=== PATIENT | male | born 1940 | race Caucasian/White ===

== ENCOUNTER 2023-07-07 18:09 | Emergency (ER) | payer OTHER, SELFPAY ==
[2023-07-07 18:27] VITALS: BP 145/87; PULSE 81; RESP 14; TEMP 36.6; O2SAT 97; BMI 27.3
--- NOTE | 2023-07-07 18:43 | W.ED.EXTPRO ---
HPI - Extremity Problem General: Chief complaint: Extremity Problem,Nontraumatic Stated complaint: Va sent for blood clot R leg Time Seen by Provider: 07/07/23 18:33 History of Present Illness: 82-year-old male presents to the emergency department after being seen by the [facility]. Patient states she lives in [place] and has recently traveled from the [facility] to [place] to visit his son. He states he initially started having pain and swelling to the back of his knee and it has now extended down to his calf. He states the pain is causing him difficulty in walking and is currently a constant dull aching 10 out of 10 pain. He states that attempts at ambulating makes the pain worse. he denies numbness or tingling to the extremity. He states that he is a diabetic-has an insulin pump that he uses. He denies chest pain or shortness of breath. He denies known injury or trauma. Review of Systems General: Reports: 10 or more systems reviewed and unremarkable except in HPI and below Musc: Reports: extremity pain and extremity swelling Physical Exam Narrative: EXAM NARRATIVE: Constitutional: the patient appears well nourished and with normal development. Vital signs reviewed as documented. HENMT: Normocephalic, atraumatic. External ears normal appearance without drainage. Nose without drainage, normal appearance. Mucus membranes moist. Neck is supple, No jugular venous distension, trachea is midline, no appreciable carotid bruits. No lymphadenopathy. No meningeal signs. Flexion, extension and lateral rotation is without pain. Eyes: Pupils are equal, round, reactive to light and accommodation. No scleral icterus. Extra-ocular movement are intact. Thorax is symmetrical and with equal rise and fall with respirations. Resp: Lungs are clear to auscultation. No wheezes, rales, crackles or ronchi at present. Cardio: Regular rate and rhythm. Positive S1, S2. No appreciable murmurs, rubs or gallops. GI: Abdominal exam reveals normal bowel sounds to all quadrants. No organomegaly. No obvious palpable masses noted. No hepatomegally appreciated. Soft, non-tender to palpation. Extremity: Right lower leg does appear to be slightly more swollen than the left in comparison. He is tender to palpation to the right popliteal space. Both femoral and pedal pulses are 2+ and equal bilaterally. Moves all extremities well, sensation in all extremities. Neuro: Alert and oriented x4, person, place, time and situation. Cranial nerves II through XII are grossly intact, there is no focal neurological deficits that I can appreciate at present. Sensation intact to all extremities. 2-point discrimination intact. Light touch intact to all extremities. Motor strength in the upper and lower extremities are equal and bilateral 5/5. Psych: Cooperative, calm, normal thought process, appropriate judgment. Skin: No lesions, rashes. No gross abnormalities noted. Back: Symmetrical, no obvious deformity, No CVA tenderness Course Vital Signs: Vital signs: Vital Signs Temperature 97.8 F 07/07/23 18:27 Pulse Rate 71 07/07/23 21:05 Respiratory Rate 18 07/07/23 21:05 Blood Pressure 115/91 07/07/23 21:05 Pulse Oximetry 96 07/07/23 21:05 Oxygen Delivery Me thod Room Air 07/07/23 18:27 MDM - Extremity (Nontraumatic) Medical Decision Making Physical exam completed and documented I will obtain a CBC CMP and a D-dimer as well as obtain an ultrasound of the right lower extremity to evaluate for differential diagnosis of cellulitis, deep vein thrombosis, musculoskeletal strain. Patient has no previous medical records here at this hospital for evaluation. Ultrasound of the right lower extremity was negative for DVT, on physical exam the patient did have a Kenney's cyst to the right popliteal space. I did educate the patient regarding supportive care and preventative measures to decrease his risk of DVT and edema while he was driving Lab Data I reviewed the patient's lab results. 07/07/23 18:43 07/07/23 18:43 Radiology Impressions Venous Duplex 07/07/23 18:46 IMPRESSION: No sonographic evidence of deep vein thrombosis. Laboratory Results WBC 6.85 10^3/uL (3.29-11.43) 07/07/23 18:43 RBC 4.86 10^6/uL (3.85-5.65) 07/07/23 18:43 Hgb 13.50 g/dL (11.27-16.99) 07/07/23 18:43 Hct 41.2 % (37-53) 07/07/23 18:43 MCV 84.8 fl (82-101) 07/07/23 18:43 MCH 27.8 pg (27-33) 07/07/23 18:43 MCHC 32.8 g/dL (30-55) 07/07/23 18:43 RDW 15.6 % (12.1-15.1) H 07/07/23 18:43 Plt Count 340 10^3/cmm (157-399) 07/07/23 18:43 MPV 10.5 fL (7.4-10.4) H 07/07/23 18:43 Neut % (Auto) 40.4 % 07/07/23 18:43 Lymph % (Auto) 43.4 % 07/07/23 18:43 Coffey % (Auto) 13.7 % 07/07/23 18:43 Eos % (Auto) 1.8 % 07/07/23 18:43 Baso % (Auto) 0.6 % 07/07/23 18:43 Neut # (Auto) 2.77 10^3/uL (1.8-7.7) 07/07/23 18:43 Lymph # (Auto) 3.0 10^3/uL (0.8-4.8) 07/07/23 18:43 Coffey # (Auto) 0.9 10^3/uL (0.2-0.9) 07/07/23 18:43 Eos # (Auto) 0.1 10^3/uL (0.0-0.8) 07/07/23 18:43 Baso # (Auto) 0.0 10^3/uL (0.0-0.1) 07/07/23 18:43 Nucleated RBC % (auto) 0 % 07/07/23 18:43 Nucleated RBCs # 0.0 /100WBC 07/07/23 18:43 D-Dimer 0.94 ug/mLFEU (0-0.59) H 07/07/23 18:43 Sodium 138 mmol/L (136-145) 07/07/23 18:43 Potassium 3.7 mmol/L (3.5-5.1) 07/07/23 18:43 Chloride 102 mmol/L (98-107) 07/07/23 18:43 Carbon Dioxide 25 mmol/L (22-29) 07/07/23 18:43 Anion Gap 14.7 (5-19) 07/07/23 18:43 BUN 23 mg/dL (8-23) 07/07/23 18:43 Creatinine 1.2 mg/dL (0.7-1.2) 07/07/23 18:43 GFR Calculation Not Reportable 07/07/23 18:43 Glucose 237 mg/dL (65-115) H 07/07/23 18:43 Calculated Osmolality 297 mOsm/kg (285-295) H 07/07/23 18:43 Calcium 9.3 mg/dL (8.5-10.5) 07/07/23 18:43 Total Bilirubin 0.9 mg/dL (0.15-1.2) 07/07/23 18:43 AST 18 U/L (0-40) 07/07/23 18:43 ALT 16 U/L (0-41) 07/07/23 18:43 Alkaline Phosphatase 88 U/L (40-130) 07/07/23 18:43 Total Protein 7.5 g/dL (6.6-8.7) 07/07/23 18:43 Albumin 4.1 g/dL (3.5-5.2) 07/07/23 18:43 Globulin 3.4 g/dL (1.3-4.6) 07/07/23 18:43 All radiology interpretation(s) finalized by discharge Discharge Plan Discharge Patient Disposition: Home Clinical Impression: Hypertension, uncontrolled, Lower extremity pain, right Kenney's cyst of knee Qualifiers: Laterality: right Qualified Code(s): M71.21 - Synovial cyst of popliteal space [Kenney], right knee Condition: Stable Prescriptions: New hydrocodone-acetaminophen 5-325 mg tablet 1 tab PO Q8H PRN (Reason: pain) Qty: 14 0RF naproxen 500 mg tablet 500 mg PO Q12H PRN (Reason: pain) Qty: 20 0RF Discharge Orders: Discharge ED (Routine); Ordered 07/07/23 Ordered By: Gaurav Gomez Discharge Diet: Usual diet Discharge Activity: Resume usual activity Patient Instructions: Opioid Safety, Pain Management Activity Restrictions/Additional Instructions: Activity Restrictions/Additional Instructions: Thank you for choosing [facility] for your healthcare needs today. Please realize that you were seen in the Emergency Department and that we are providing you with an emergency medical screening exam and this may not be a complete and all inclusive of all the testing and or medical work-up that you may need to determine your ailment or severity of your illness. It is very important that you follow-up as instructed with your Primary care provider or Specialist for additional evaluation and to discuss your medical treatment plan. You may return to the Emergency Department should you have concerns or if your condition changes or worsens in any way. Coding Level of Care Code ED [employer] for Narendra Morocho
--- NOTE | 2023-07-07 18:46 | USR_ITS ---
PROCEDURE INFORMATION: Exam: US Duplex Right Lower Extremity Veins, Limited Exam date and time: 07/07/2023 6:54 PM Age: 82 years old Clinical indication: Pain; Leg, lower; Right; Additional info: Pain/swelling, R/O dvt TECHNIQUE: Imaging protocol: Real-time duplex ultrasound of the right extremity with 2-D taylor scale, color Doppler flow and spectral waveform analysis including responses to compression and other maneuvers (when performed) with image documentation. Limited exam was focused on the right lower extremity veins. COMPARISON: No relevant prior studies available. FINDINGS: Right deep veins: Unremarkable. The common femoral, femoral, proximal profunda femoral, popliteal, posterior tibial and peroneal veins are patent without thrombus. Normal Doppler waveforms. Normal compressibility and/or augmentation response. Superficial veins: Greater saphenous vein at the saphenofemoral junction is patent without thrombus. Soft tissues: Unremarkable. US/[place] [id number] IMPRESSION: No sonographic evidence of deep vein thrombosis.
[2023-07-07 18:52] LABS: Basophils % 0.6 %; Eosinophils # 0.1 10^3/uL (0.0-0.8); Eosinophils % 1.8 %; Hematocrit 41.2 % (37-53); Lymphocytes % 43.4 %; Mean Corpuscular HGB Conc 32.8 g/dL (30-55); Mean Corpuscular Hemoglobin 27.8 pg (27-33); Mean Corpuscular Volume 84.8 fl (82-101); Mean Platelet Volume 10.5 fL (7.4-10.4); Monocytes # 0.9 10^3/uL (0.2-0.9); Monocytes % 13.7 %; Neutrophils # 2.77 10^3/uL (1.8-7.7); Neutrophils % 40.4 %; Nucleated Red Blood Cells % 0 %; Platelet Count 340 10^3/cmm (157-399); Red Blood Count 4.86 10^6/uL (3.85-5.65); Red Cell Distribution Width 15.6 % (12.1-15.1); White Blood Count 6.85 10^3/uL (3.29-11.43)
[2023-07-07 19:03] VITALS: BP 175/92; PULSE 78; O2SAT 97
[2023-07-07 19:08] LABS: Alanine Aminotransferase 16 U/L (0-41); Albumin Level 4.1 g/dL (3.5-5.2); Alkaline Phosphatase 88 U/L (40-130); Anion Gap 14.7 (5-19); Aspartate Amino Transferase 18 U/L (0-40); Blood Urea Nitrogen 23 mg/dL (8-23); Calcium 9.3 mg/dL (8.5-10.5); Carbon Dioxide 25 mmol/L (22-29); Chloride 102 mmol/L (98-107); Globulin 3.4 g/dL (1.3-4.6); Glucose 237 mg/dL (65-115); Osmolality Calculated 297 mOsm/kg (285-295); Potassium 3.7 mmol/L (3.5-5.1); Sodium 138 mmol/L (136-145); Total Bilirubin 0.9 mg/dL (0.15-1.2); Total Protein 7.5 g/dL (6.6-8.7)
[2023-07-07 19:18] LABS: Slide Review Slide Review Perform
[2023-07-07 19:36] LABS: D Dimer 0.94 ug/mLFEU (0-0.59)
[2023-07-07] MEDS: HYDROcodone-acetaminophen 10-325 mg Tablet 1 TAB PO (20:56)
[2023-07-07] MEDS: dexamethasone 10 mg/mL INJ IM (20:58)
[2023-07-07 21:05] VITALS: BP 115/91; PULSE 71; RESP 18; O2SAT 96
== END 2023-07-07 21:18 | disposition home or self-care (01) ==
PROVIDERS: Emergency Provider Internal Medicine
DX: M71.21 Synovial cyst of popliteal space [Baker], right knee (principal); I10 Essential (primary) hypertension
CPT/HCPCS: 36415; 80053; 85025; 85378; 93971; 96372; 99284; J1100

== ENCOUNTER 2023-10-05 14:23 | Emergency (ER) | payer OTHER, MEDICARE, SELFPAY ==
[2023-10-05 14:56] VITALS: BP 168/93; PULSE 96; RESP 16; TEMP 36.5; O2SAT 97; BMI 26.1
--- NOTE | 2023-10-05 15:18 | ED_ITS ---
Documented by User: VERO Edwards 10/05/23 16:15 HPI - Fall 2 General: Chief Complaint: Extremity Injury, Upper Stated Complaint: Left arm injury Time Seen by Provider: 10/05/23 15:13 Source: patient Mode of arrival: wheelchair Limitations: no limitations History of Present Illness: Patient is a elliott 83-year-old male presents to ED today following a fall. Patient states he was walking on hardwood in socks when he accidentally slipped and fell. Patient states he did strike his head/face. He denies LOC. He is not on anticoagulation. He states he felt something crunch in his left shoulder and this is his main complaint upon presentation to the ED. He does not complain of neck or back pain. He states his legs do feel weak with ambulation but states this has been present for a while stating I am 83 and it comes with the territory . complaint: fall Onset (ago): hour(s) Fall from: standing Fall witnessed: no Place fall occurred: home Loss of consciousness: None Prolonged down time: no Symptoms prior to fall: none Context: tripped/slipped Location of injury: head and face Location of injury - extremities: Left: shoulder Severity: severe Associated symptoms-after fall: Denies abdominal pain, chest pain, headache(s), hematuria, lightheadedness or neck pain Review of Systems 2 Eyes: Denies: change in vision, blurry vision, photophobia, eye discharge, floaters or seeing flashes ENMT: Denies: throat pain, odynophagia, ear or mastoid pain, ear discharge, nasal discharge, epistaxis or sinus pain Card: Denies: chest pain, palpitations, lightheadedness, syncope or pre- syncope Resp: Denies: dyspnea or pain on inspiration GI: Denies: abdominal pain : Denies: flank pain or hematuria Musc: Reports: joint pain (L shoulder); Denies: neck pain, back pain or extremity pain Neuro: Denies: headache(s), numbness in extremities, weakness in extremities, sensory changes or dizziness Physical Exam 2 Const: COMMON NORMALS: no acute distress, average body habitus, patient oriented x3, no limitations, healthy appearing, alert and well nourished G ENERAL APPEARANCE: cooperative ORIENTATION/CONSCIOUSNESS: Yes awake, Yes oriented to person, Yes oriented to place and Yes oriented to time HENMT: COMMON NORMALS: normocephalic, atraumatic and TM's normal bilaterally HEAD & SCALP: normal to inspection, normocephalic and atraumatic; no Dawkins's sign, no hematoma and no raccoon eyes FACE & SINUS: abrasion FACE & SINUS IMAGES: 1. minor facial abrasions TYMPANIC MEMBRANE: TM's normal bilaterally MOUTH: other (no intraoral injuries noted) Eye: COMMON NORMALS: Equal, round and reactive pupils present and EOMs intact bilaterally GENERAL EYE: appearance normal, both eyes and all related structures and normal light reflex PUPIL: Yes Equal, round and reactive pupils present DIRECT OPHTHALMOSCOPY: Yes normal light reflex Neck/C-Spine: COMMON NORMALS: full ROM GENERAL: Yes normal visual inspection CERVICAL SPINE: Yes cervical ROM normal, No pain with cervical ROM, No Cervical spine tenderness, No step off deformity and No Paracervical muscle tenderness Chest: COMMONS NORMALS: normal inspection of the chest and normal palpation of entire chest wall Resp: COMMON NORMALS: normal respiratory effort and clear to auscultation bilaterally AUSCULTATION: clear to auscultation bilaterally Cardio: COMMON NORMALS: regular rate and regular rhythm RATE: regular rate RHYTHM: regular rhythm GI: COMMON NORMALS: Normal to inspection, nondistended, normoactive bowel sounds present, Soft to palpation, non-tender, No hepatosplenomegaly present and no masses INSPECTION: Yes normal to inspection and No abdominal wall ecchymosis AUSCULTATION: Yes normoactive bowel sounds PALPATION: Yes Soft to palpation and Yes No hepatosplenomegaly present Back/Pelvis: COMMON NORMALS: thoracic and lumbar spine normal to inspection, no thoracic nor lumbar tenderness and thoraco-lumbar ROM normal Extremity: GENERAL: Yes normal exam except as noted LEFT UPPER EXTREMITY: Y es shoulder joint (severe tenderness to palpation; no dislocation present) Left shoulder joint: Yes ROM (full limitation due to pain) and Yes neurovascular exam (normal) Neuro: JUAN COMA SCALE: document GCS findings Juan coma scale eye opening: Spontaneous Juan coma scale verbal response: Orientated Melville coma scale motor response: Obey commands Juan coma scale total score: 15 COMMON NORMALS: patient oriented x3, CN's II-XII intact bilaterally, moves all extremities, no focal motor deficits, no sensory deficits noted and gait normal SENSORIUM/ORIENTATION: Yes alert, Yes oriented to person, Yes oriented to place and Yes oriented to time SPEECH: speech normal GAIT: Yes Normal gait present Skin: COMMON NORMALS: no rashes or lesions noted GENERAL SKIN EXAM: no rashes or lesions noted TRAUMA: abrasion Course 2 Vital Signs: Vital signs: Vital Signs Temperature 97.7 F 10/05/23 14:56 Pulse Rate 96 10/05/23 14:56 Respiratory Rate 21 H 10/05/23 17:11 Blood Pressure 168/93 10/05/23 14:56 Pulse Oximetry 97 10/05/23 17:11 Oxygen Delivery Me thod Room Air 10/05/23 14:56 MDM - Fall Lab Data Radiology Impressions Cervical Spine CT 10/05/23 15:54 IMPRESSION: There is no evidence for fracture or facet dislocation. Head CT 10/05/23 15:54 IMPRESSION: No acute intracranial findings. Shoulder X-Ray 10/05/23 15:54 IMPRESSION: Acute comminuted mildly displaced fracture of the surgical neck of the humerus extending into the greater tuberosity Discharge Plan Discharge Patient Disposition: Home Clinical Impression: Proximal humeral fracture Condition: Stable Prescriptions: New hydrocodone-acetaminophen 7.5-325 mg tablet 1 tab PO Q8H PRN (Reason: pain) Qty: 20 0RF Discontinued hydrocodone-acetaminophen 5-325 mg tablet 1 tab PO Q8H PRN (Reason: pain) Qty: 14 0RF No Action naproxen 500 mg tablet 500 mg PO Q12H PRN (Reason: pain) Qty: 20 0RF Discharge Orders: Discharge ED (Routine); Ordered 10/05/23 Ordered By: Gerard Gonsalez Discharge Diet: Usual diet Discharge Activity: Limit activity as instructed Patient Instructions: Arm Fracture in Adults (ED), Opioid Safety Activity Restrictions/Additional Instructions: Use sling as instructed. Follow-up with orthopedics. Pain medications. Avoid any overhead movements with that left arm and please return if you develop any concerning symptoms such as numbness, coolness, or significant increase of pain of your left arm. Sign Out Sign Out Data: Patient Sign Out occurred on 10/05/23 at 17:30. Patient's care was discussed, and care was transferred from VERO Edwards to VERO Herrera. Coding Level of Care Code ED Mechanical [employer] Techn[employer] for [employer]g [employer] Documented by User: VERO Herrera 10/05/23 17:42 HPI - Fall 2 General: Chief Complaint: Extremity Injury, Upper Stated Complaint: Left arm injury Time Seen by Provider: 10/05/23 15:13 Physical Exam 2 HENMT: FACE & SINUS IMAGES: 1. minor facial abrasions Neuro: JUAN COMA SCALE: document GCS findings Juan coma scale total score: 15 Course 2 Vital Signs: Vital signs: Vital Signs Temperature 97.7 F 10/05/23 14:56 Pulse Rate 96 10/05/23 14:56 Respiratory Rate 21 H 10/05/23 17:11 Blood Pressure 168/93 10/05/23 14:56 Pulse Oximetry 97 10/05/23 17:11 Oxygen Delivery Pr thod Room Air 10/05/23 14:56 MDM - Fall Medical Decision Making Care of patient transferred to vt by bijal PHAM. Patient presented to the emergency department after a fall at home. Patient was walking in his socks when he fell on hardwood floor, striking his head and stating that there was a loss of consciousness. However his primary complaint at this time is some left shoulder pain. Patient is anticoagulated. His shoulder x-ray did reveal an acute fracture of the left surgical neck of the humerus. He is given shot of morphine as well is a shot of Zofran. While his pain was initially improving, he states it was coming back so another 4 of morphine is given. Due to the head trauma, head CT and cervical spine CT obtained that did not reveal any acute findings. Patient will be placed in a sling and referred to orthopedics for further evaluation. He does live at home with his and a 16-year-old child, and states that they can watch over him. He denies needing wheelchair accessibility at this time, as after being placed in a sling he states that he is feeling more comfortable. Hydrocodone sent to his pharmacy for pain control, and he is instructed to limit use of that left arm and return for any signs of distal neurovascular compromise. His examination did not reveal any concerning findings of this, no wrist drop was noted. Strict return precautions given otherwise and he will follow-up with orthopedics. Lab Data Radiology Impressions Cervical Spine CT 10/05/23 15:54 IMPRESSION: There is no evidence for fracture or facet dislocation. Head CT 10/05/23 15:54 IMPRESSION: No acute intracranial findings. Shoulder X-Ray 10/05/23 15:54 IMPRESSION: Acute comminuted mildly displaced fracture of the surgical neck of the humerus extending into the greater tuberosity All radiology interpretation(s) finalized by discharge Discharge Plan Discharge Patient Disposition: Home Clinical Impression: Proximal humeral fracture Condition: Stable Prescriptions: New hydrocodone-acetaminophen 7.5-325 mg tablet 1 tab PO Q8H PRN (Reason: pain) Qty: 20 0RF Discontinued hydrocodone-acetaminophen 5-325 mg tablet 1 tab PO Q8H PRN (Reason: pain) Qty: 14 0RF No Action naproxen 500 mg tablet 500 mg PO Q12H PRN (Reason: pain) Qty: 20 0RF Discharge Orders: Discharge ED (Routine); Ordered 10/05/23 Ordered By: Gerard Gonsalez Discharge Diet: Usual diet Discharge Activity: Limit activity as instructed Patient Instructions: Arm Fracture in Adults (ED), Opioid Safety Activity Restrictions/Additional Instructions: Use sling as instructed. Follow-up with orthopedics. Pain medications. Avoid any overhead movements with that left arm and please return if you develop any concerning symptoms such as numbness, coolness, or significant increase of pain of your left arm. Sign Out Sign Out Data: Patient Sign Out occurred on 10/05/23 at 17:30. Patient's care was discussed, and care was transferred from VERO Edwards to VERO Herrera. Coding Level of Care Code ED Mechanical [employer] Techn[employer] for Narendra Morocho
--- NOTE | 2023-10-05 15:54 | CTR_ITS ---
PROCEDURE INFORMATION: Exam: CT Cervical Spine Without Contrast Exam date and time: 10/05/2023 4:33 PM Age: 83 years old Clinical indication: Injury or trauma; Fall; Prior surgery; Surgery date: 6+ months; Surgery type: Describes surgery as putting a clip in there -several years ago; Additional info: Fall/trauma TECHNIQUE: Imaging protocol: Computed tomography of the cervical spine without contrast. Radiation optimization: All CT scans at this facility use at least one of these dose optimization techniques: automated exposure control; mA and/or kV adjustment per patient size (includes targeted exams where dose is matched to clinical indication); or iterative reconstruction. COMPARISON: CT head wo con* [id number] 10/05/2023 4:33 PM RADIATION DOSE METRICS: Total DLP (mGy-cm): 298 FINDINGS: Bones/joints: No acute fracture. Normal alignment. There is fusion at C5/6 and C6/7. Degenerative change is identified in the spine. Lungs: Lung apices are normal. Soft tissues: Unremarkable. CT/CT cervical spin wo con* [id number] IMPRESSION: There is no evidence for fracture or facet dislocation.
--- NOTE | 2023-10-05 15:54 | CTR_ITS ---
PROCEDURE INFORMATION: Exam: CT Head Without Contrast Exam date and time: 10/05/2023 4:33 PM Age: 83 years old Clinical indication: Injury or trauma; Fall; Blunt trauma (contusions or hematomas) TECHNIQUE: Imaging protocol: Computed tomography of the head without contrast. Radiation optimization: All CT scans at this facility use at least one of these dose optimization techniques: automated exposure control; mA and/or kV adjustment per patient size (includes targeted exams where dose is matched to clinical indication); or iterative reconstruction. COMPARISON: CT cervical spin wo con* [id number] 10/05/2023 4:33 PM RADIATION DOSE METRICS: Total DLP (mGy-cm): 1144 FINDINGS: Brain: No intracranial hemorrhage. There is global parenchymal volume loss. Periventricular white matter hypoattenuation is nonspecific but most likely due to small vessel disease. No evidence of acute territorial infarct or cerebral edema. No mass effect or midline shift. Cerebral ventricles: Prominent ventricles likely secondary to volume loss. Paranasal sinuses: Visualized sinuses are unremarkable. No fluid levels. Mastoid air cells: Visualized mastoid air cells are well aerated. Bones: Unremarkable. No acute fracture. Soft tissues: Left frontal and periorbital scalp hematoma. CT/CT head wo con* [id number] IMPRESSION: No acute intracranial findings.
--- NOTE | 2023-10-05 15:54 | XRR_ITS ---
PROCEDURE INFORMATION: Exam: XR Left Shoulder Exam date and time: 10/05/2023 3:59 PM Age: 83 years old Clinical indication: Injury or trauma; Fall; Blunt trauma (contusions or hematomas); Shoulder; Left; Additional info: Fall/trauma TECHNIQUE: Imaging protocol: Radiologic exam of the left shoulder. Views: 2 or more views. COMPARISON: No relevant prior studies available. FINDINGS: Bones/joints: There is a comminuted mildly displaced fracture involving the surgical neck of the humerus extending into the greater tuberosity. The humeral head remains aligned with the glenoid. There are [id number] degenerative changes of the acromioclavicular joint. There is a remote healed fracture deformity of the left clavicle. Soft tissues: Normal. XR/XR shoulder LT min 2V* [id number] IMPRESSION: Acute comminuted mildly displaced fracture of the surgical neck of the humerus extending into the greater tuberosity
[2023-10-05 16:15] VITALS: RESP 17; O2SAT 98
[2023-10-05] MEDS: morphine 4 mg/mL SDV 1 mL IM ×2 (16:15→17:11)
[2023-10-05] MEDS: ondansetron 2 mg/ML SDV 2 mL 4 MG IM (16:20)
[2023-10-05 17:11] VITALS: RESP 21; O2SAT 97
--- NOTE | 2023-10-05 17:19 | DCPLANNER ---
messaged ortho for er f/u
== END 2023-10-05 17:56 | disposition home or self-care (01) ==
PROVIDERS: Emergency Provider Physician Assistant
DX: S42.212A Unspecified displaced fracture of surgical neck of left humerus, initial encounter for closed fracture (principal); S00.212A Abrasion of left eyelid and periocular area, initial encounter; W01.0XXA Fall on same level from slipping, tripping and stumbling without subsequent striking against object, initial encounter
CPT/HCPCS: 70450; 72125; 73030; 96372; 99284; J2270; J2405

== ENCOUNTER → 2023-10-07 11:17 | Outpatient (BNVA) | payer OTHER, MEDICARE, SELFPAY | PROVIDERS: Referring Provider Physician Assistant; Visit Provider Specialist | DX: S42.202A Unspecified fracture of upper end of left humerus, initial encounter for closed fracture (principal); W18.30XA Fall on same level, unspecified, initial encounter | CPT/HCPCS: 23600; 73030; 99204 ==

== ENCOUNTER 2023-10-12 07:47 | Outpatient (CLI) | payer OTHER, SELFPAY ==
--- NOTE | 2023-10-12 08:00 | CT_ITS ---
WS: [id number] CT LEFT SHOULDER, NONCONTRAST. HISTORY: fracture Technique: All CT scans at [facility] use at least one of these dose optimization techniques: automated exposure control; mA and/or kV adjustment per patient size (includes targeted exams where dose is matched to clinical indication); or iterative reconstruction. DLP: 401.19 mGy.cm COMPARISON: LEFT shoulder radiographs 10/07/2023 Markedly comminuted fracture involving the LEFT proximal humerus. Multiple fracture lines of the mila ral head and proximal humerus. Involvement of the anatomic and surgical neck's. There is impaction al hao the fracture line with anterior displacement and impaction of the humeral head. Anterior displace ment by 13 mm along with approximately 22 mm of impaction along the dominant fracture line. There is an additional fracture involving the posterior glenoid. This is the site of impaction. Poste rior glenoid fracture displaced by 13 mm. Fracture fragments are displaced from the humeral head. The re is a separation of the medial fracture fragment by 13 mm. Mild inferior subluxation humeral head. There is soft tissue edema and probable joint effusion from the recent trauma. Mild degenerative changes at the AC joint. Cortical thickening in the central clavicle may be from an old fracture site. No rib fractures are identified. There are prior anterior cervical fusion sites in the lower cervical spine. CT/CT shoulder LT wo con* [id number] IMPRESSION: 1. Markedly comminuted acute humeral head and neck fracture. Fracture is anter iorly displaced and impacted. 2. Multiple osseous fragments displaced from the osseous component. 3. Acute fractures of the posterior glenoid displaced by 13 mm. 4. Mild subluxation of the humeral head.
== END 2023-10-12 07:48 | disposition home or self-care (01) ==
LOC: RAD 07:47
PROVIDERS: PCP Nurse Practitioner; Visit Provider Specialist
DX: S42.202A Unspecified fracture of upper end of left humerus, initial encounter for closed fracture (principal); S42.142A Displaced fracture of glenoid cavity of scapula, left shoulder, initial encounter for closed fracture; M43.22 Fusion of spine, cervical region; M25.812 Other specified joint disorders, left shoulder; X58.XXXA Exposure to other specified factors, initial encounter
CPT/HCPCS: 73200

== ENCOUNTER 2023-10-13 16:48 | Emergency (ER) | payer OTHER, MEDICARE, SELFPAY ==
--- NOTE | 2023-10-13 16:55 | CTR_ITS ---
PROCEDURE INFORMATION: Exam: CT Head Without Contrast Exam date and time: 10/13/2023 5:59 PM Age: 83 years old Clinical indication: Injury or trauma; Fall; Blunt trauma (contusions or hematomas); Dizziness; Additional info: Fall, head injury TECHNIQUE: Imaging protocol: Computed tomography of the head without contrast. Radiation optimization: All CT scans at this facility use at least one of these dose optimization techniques: automated exposure control; mA and/or kV adjustment per patient size (includes targeted exams where dose is matched to clinical indication); or iterative reconstruction. COMPARISON: CT head wo con* [id number] 10/05/2023 4:33 PM RADIATION DOSE METRICS: Total DLP (mGy-cm): 1083 FINDINGS: Brain: Sequela of moderate chronic microvascular ischemic changes with periventricular and deep white matter hypoattenuation. Hernandez-white differentiation is otherwise maintained. No evidence of intra-axial or extra-axial hemorrhage. No mass effect or midline shift. Basilar cisterns are patent. Cerebral ventricles: No hydrocephalus. Paranasal sinuses: The visualized paranasal sinuses are well aerated. Mastoid air cells: The visualized mastoids and middle ears are clear. Bones: Calvarium is intact. No evidence of acute fracture. Soft tissues: No gross soft tissue abnormality. CT/CT head wo con* [id number] IMPRESSION: 1. No acute intracranial abnormality.
--- NOTE | 2023-10-13 16:55 | XRR_ITS ---
PROCEDURE INFORMATION: Exam: XR Chest Exam date and time: 10/13/2023 4:58 PM Age: 83 years old Clinical indication: Other: Weakness TECHNIQUE: Imaging protocol: Radiologic exam of the chest. Views: 1 view. COMPARISON: CT shoulder LT wo con* [id number] 10/12/2023 8:26 AM FINDINGS: Lungs: No focal consolidation. Pleural spaces: No evidence of pneumothorax. No evidence of pleural effusion. Heart/Mediastinum: Cardiomediastinal silhouette is within normal limits. Bones/joints: No evidence of acute osseous abnormality. Old left clavicular fracture. XR/XR chest 1V portable [id number] IMPRESSION: 1. No acute cardiopulmonary abnormality.
[2023-10-13 17:05] VITALS: BP 163/91; PULSE 86; RESP 18; TEMP 36.8; O2SAT 88; BMI 28.0
[2023-10-13 17:07] VITALS: BP 178/104; PULSE 79; RESP 14; O2SAT 96
--- NOTE | 2023-10-13 17:08 | PC.NURSE ---
PATIENT PLACED ON 2 L NC DUE TO O2 BEING 87-88%.
--- NOTE | 2023-10-13 17:15 | ECG_ITS ---
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 Measurements Intervals Gamaliel Rate: 84 P: 62 ME: 242 QRS: -52 QRSD: 121 T: 82 QT: 384 QTc: 454 Interpretive Statements SINUS RHYTHM WITH FIRST DEGREE AV BLOCK WITH FREQUENT VENTRICULAR PREMATURE COMPLEXES LEFT ANTERIOR FASCICULAR BLOCK [QRS AXIS <= -45, QR IN I, RS IN II] LEFT VENTRICULAR HYPERTROPHY AND ST-T CHANGE [VOLTAGE CRITERIA PLUS ST/T ABNORMALITY] POSSIBLE SEPTAL MYOCARDIAL INFARCTION , PROBABLY OLD [30 ms Q WAVE IN V1/V2] No previous ECG available for comparison Electronically Signed On 10-13-2023 22:01:17 CDT by Lynn Cline M.D. [email or web address]
[2023-10-13 17:37] VITALS: BP 178/104; PULSE 85; RESP 14; O2SAT 95
[2023-10-13 17:51] LABS: Basophils % 0.3 %; Eosinophils % 0.6 %; Hematocrit 37.2 % (37-53); Lymphocytes # 1.1 10^3/uL (0.8-4.8); Lymphocytes % 17.2 %; Mean Corpuscular HGB Conc 33.1 g/dL (30-55); Mean Corpuscular Volume 84.5 fl (82-101); Mean Platelet Volume 10.5 fL (7.4-10.4); Monocytes # 0.8 10^3/uL (0.2-0.9); Monocytes % 12.3 %; Neutrophils # 4.49 10^3/uL (1.8-7.7); Neutrophils % 69.1 %; Nucleated Red Blood Cells % 0 %; Platelet Count 293 10^3/cmm (157-399); Red Cell Distribution Width 14.5 % (12.1-15.1)
--- NOTE | 2023-10-13 17:56 | W.ED.SYNCOPE ---
HPI - Syncope General: Chief Complaint: Syncope Stated Complaint: Syncopal Episode Time Seen by Provider: 10/13/23 16:51 History of Present Illness: 83-year-old man with a history of diabetes and a recent fall with a shoulder fracture and planned surgery who presents to the emergency room after having a syncopal episode in the parking lot. He fell backwards and hit his head. He did not seem to further injure his left shoulder. He does not report any chest pain. No shortness of breath. No fevers. Says he has not really been feeling all that well. He is pretty hard of hearing so difficult to take a great history. Review of Systems Narrative: Constitutional symptoms: Negative except as documented in HPI. Skin symptoms: Negative except as documented in HPI. Eye symptoms: Negative except as documented in HPI. ENMT symptoms: Negative except as documented in HPI. Respiratory symptoms: Negative except as documented in HPI. Cardiovascular symptoms: Negative except as documented in HPI. Gastrointestinal symptoms: Negative except as documented in HPI. Genitourinary symptoms: Negative except as documented in HPI. Musculoskeletal symptoms: Negative except as documented in HPI. Neurologic symptoms: Negative except as documented in HPI. Psychiatric symptoms: Negative except as documented in HPI. Endocrine symptoms: Negative except as documented in HPI. [facility] ED PFSH: Social History Smoking and tobacco/nicotine status: former use of tobacco/nicotine Physical Exam Narrative: EXAM NARRATIVE: General: Alert, no acute distress. Skin: Warm, dry. Head: Normocephalic, abrasion on back of head.. Neck: Supple, trachea midline. Eye: Extraocular movements are intact. Ears, nose, mouth and throat: mucosa moist. Cardiovascular: Regular, Normal peripheral perfusion. Respiratory: Lungs are clear to auscultation, respirations are non-labored, breath sounds are equal, Symmetrical chest wall expansion. Gastrointestinal: Soft, Nontender, Non distended Musculoskeletal: Left arm is in a sling. Pain in his shoulder. Neurological: Alert and oriented, No focal neurological deficit observed. Psychiatric: Cooperative, appropriate mood & affect. Course Vital Signs: Vital signs: Vital Signs Temperature 98.2 F 10/13/23 17:05 Pulse Rate 82 10/13/23 18:30 Respiratory Rate 16 10/13/23 18:30 Blood Pressure 169/86 10/13/23 18:30 Pulse Oximetry 95 10/13/23 18:30 Oxygen Delivery Me thod Room Air 10/13/23 18:30 MDM - Syncope Medical Decision Making CT head: No acute intracranial process. no intracranial hemorrhage, no evidence of infarct. no evidence of acute fracture.This was reviewed and interpreted by myself the ER physician. Chest x-ray: No acute process. No infiltrate. No pneumothorax. This was reviewed and interpreted by myself the ER physician. EKG: Time 1715. Rate 84. Normal sinus rhythm, No ST-T changes, no ectopy, first degree AV Block, EP Interpretation. This was reviewed and interpreted by myself the ER physician at 1720 Lab Review: Laboratory results were reviewed and interpreted by myself the emergency room physician. Patient has little bit of an elevation in his BUN and creatinine at 29 and 1.3. His urine looks a bit concentrated think he is dehydrated. I reviewed the patient's medical record. Reexamination: Patient has remained stable here. No increased work of breathing. No altered mental status. No nausea or vomiting. No focal motor deficits. Assessment and plan: Syncope Head injury Dehydration ?Normal saline bolus. - Discharged home - Discussed findings and plan with patient. Answered any questions. - All laboratory values were reviewed and interpreted personally by myself, the ER physician - All imaging was reviewed and interpreted personally by myself, the ER physician. - Evaluation and treatment of this problem were appropriate in the emergency setting Lab Data 10/13/23 17:39 10/13/23 17:39 Radiology Impressions Chest X-Ray 10/13/23 16:55 IMPRESSION: 1. No acute cardiopulmonary abnormality. Head CT 10/13/23 16:55 IMPRESSION: 1. No acute intracranial abnormality. Laboratory Results WBC 6.50 10^3/uL (3.29-11.43) 10/13/23 17:39 RBC 4.40 10^6/uL (3.85-5.65) 10/13/23 17:39 Hgb 12.30 g/dL (11.27-16.99) 10/13/23 17:39 Hct 37.2 % (37-53) 10/13/23 17:39 MCV 84.5 fl (82-101) 10/13/23 17:39 MCH 28.0 pg (27-33) 10/13/23 17:39 MCHC 33.1 g/dL (30-55) 10/13/23 17:39 RDW 14.5 % (12.1-15.1) 10/13/23 17:39 Plt Count 293 10^3/cmm (157-399) 10/13/23 17:39 MPV 10.5 fL (7.4-10.4) H 10/13/23 17:39 Neut % (Auto) 69.1 % 10/13/23 17:39 Lymph % (Auto) 17.2 % 10/13/23 17:39 [place] % (Auto) 12.3 % 10/13/23 17:39 Eos % (Auto) 0.6 % 10/13/23 17:39 Baso % (Auto) 0.3 % 10/13/23 17:39 Neut # (Auto) 4.49 10^3/uL (1.8-7.7) 10/13/23 17:39 Lymph # (Auto) 1.1 10^3/uL (0.8-4.8) 10/13/23 17:39 [place] # (Auto) 0.8 10^3/uL (0.2-0.9) 10/13/23 17:39 Eos # (Auto) 0.0 10^3/uL (0.0-0.8) 10/13/23 17:39 Baso # (Auto) 0.0 10^3/uL (0.0-0.1) 10/13/23 17:39 Nucleated RBC % (auto) 0 % 10/13/23 17:39 Nucleated RBCs # 0.0 /100WBC 10/13/23 17:39 Sodium 134 mmol/L (136-145) L 10/13/23 17:39 Potassium 3.8 mmol/L (3.5-5.1) 10/13/23 17:39 Chloride 96 mmol/L (98-107) L 10/13/23 17:39 Carbon Dioxide 27 mmol/L (22-29) 10/13/23 17:39 Anion Gap 14.8 (5-19) 10/13/23 17:39 BUN 29 mg/dL (8-23) H 10/13/23 17:39 Creatinine 1.3 mg/dL (0.7-1.2) H 10/13/23 17:39 GFR Calculation Not Reportable 10/13/23 17:39 Glucose 279 mg/dL (65-115) H 10/13/23 17:39 Calculated Osmolality 294 mOsm/kg (285-295) 10/13/23 17:39 Lactic Acid 1.8 mmol/L (0.5-2.2) 10/13/23 17:39 Calcium 9.0 mg/dL (8.5-10.5) 10/13/23 17:39 Total Bilirubin 2.4 mg/dL (0.15-1.2) H 10/13/23 17:39 AST 27 U/L (0-40) 10/13/23 17:39 ALT 26 U/L (0-41) 10/13/23 17:39 Alkaline Phosphatase 86 U/L (40-130) 10/13/23 17:39 Troponin T Baseline 18 ng/L (0-15) H 10/13/23 17:39 C-Reactive Protein 31.0 mg/L (0.0-4.9) H 10/13/23 17:39 Total Protein 7.1 g/dL (6.6-8.7) 10/13/23 17:39 Albumin 3.5 g/dL (3.5-5.2) 10/13/23 17:39 Globulin 3.6 g/dL (1.3-4.6) 10/13/23 17:39 Urine Color Dark yellow (Yellow) A 10/13/23 18:46 Urine Appearance Clear (CLEAR) 10/13/23 18:46 Urine pH 5 (5-7) 10/13/23 18:46 Ur Specific [place] 1.020 (1.005-1.030) 10/13/23 18:46 Urine Protein 1+ (Negative) H 10/13/23 18:46 Urine Glucose (UA) 2+ (Normal) H 10/13/23 18:46 Urine Ketones Negative (Negative) 10/13/23 18:46 Urine Blood Neg (Negative) 10/13/23 18:46 Urine Nitrate Negative (Negative) 10/13/23 18:46 Urine Bilirubin 1+ (Negative) H 10/13/23 18:46 Urine Urobilinogen 8 mg/dL (Negative) H 10/13/23 18:46 Ur Leukocyte Esterase Trace (Negative) H 10/13/23 18:46 Urine RBC 0-4 /hpf (0-2) H 10/13/23 18:46 Urine WBC 0-4 /hpf (0-5) H 10/13/23 18:46 Ur Squamous Epith Cells 0-4 /hpf (0-5) H 10/13/23 18:46 Amorphous Sediment Not Reportable 10/13/23 18:46 Urine Bacteria Trace /hpf (NONE) 10/13/23 18:46 Urine Mucus Trace /hpf 10/13/23 18:46 All radiology interpretation(s) finalized by discharge Discharge Plan Discharge Patient Disposition: Home Clinical Impression: Syncope, Dehydration, Head injury Condition: Stable Prescriptions: No Action insulin lispro [Admelog U-100 Insulin lispro] 100 unit/mL solution 10 unit SUBCUT TID aspirin [Adult Low Dose Aspirin] 81 mg tablet,delayed release (DR/EC) 81 mg PO DAILY omeprazole 20 mg capsule,delayed release(DR/EC) 20 mg PO DAILY hydrocodone-acetaminophen 7.5-325 mg tablet 1 tab PO Q8H PRN (Reason: pain) 5 Days Qty: 15 0RF naproxen 500 mg tablet 500 mg PO Q12H PRN (Reason: pain) Qty: 20 0RF Discharge Orders: Discharge ED (Routine); Ordered 10/13/23 Ordered By: Kimberly Franco Referrals: Sonja Figueroa, DIRECTOR [employer]GRICULTURAL SERVICES [Primary Care Provider] - Discharge Diet: Usual diet Discharge Activity: Increase activity as tolerated Patient Instructions: Syncope (ED), Head Injury (ED) Activity Restrictions/Additional Instructions: Thank you for choosing [facility] for your healthcare needs today. Please realize this is an emergency room and that we are providing you with a medical screening exam and this may not be complete and all inclusive of all the testing and or work up that you may need to determine your ailment or severity of your illness. You have been screened and evaluated and felt safe for discharge. Health conditions do change or evolve sometimes and as such it is important that you follow up with your Primary Doctor to be re checked, 3-5 days is a general good time frame for follow up. You are always welcome to return to the ED for re assessment if your symptoms are worsening or you have new concerns Coding Level of Care Code ED Electrical Cad Technician for Narendra Morocho
[2023-10-13 18:12] LABS: Lactic Sepsis W/Reflex 1.8 mmol/L (0.5-2.2)
[2023-10-13 18:13] LABS: Alanine Aminotransferase 26 U/L (0-41); Albumin Level 3.5 g/dL (3.5-5.2); Alkaline Phosphatase 86 U/L (40-130); Anion Gap 14.8 (5-19); Aspartate Amino Transferase 27 U/L (0-40); Blood Urea Nitrogen 29 mg/dL (8-23); Carbon Dioxide 27 mmol/L (22-29); Chloride 96 mmol/L (98-107); Creatinine Clr Calc Pharmacy 56.1259; Globulin 3.6 g/dL (1.3-4.6); Glucose 279 mg/dL (65-115); Osmolality Calculated 294 mOsm/kg (285-295); Potassium 3.8 mmol/L (3.5-5.1); Sodium 134 mmol/L (136-145); Total Bilirubin 2.4 mg/dL (0.15-1.2); Total Protein 7.1 g/dL (6.6-8.7)
[2023-10-13 18:17] LABS: Troponin(5th) Baseline 18 ng/L (0-15)
[2023-10-13 18:29] VITALS: BP 156/92; PULSE 85; RESP 16; O2SAT 94
[2023-10-13 18:30] VITALS: BP 169/86; PULSE 82; RESP 16; O2SAT 95
[2023-10-13] MEDS: sodium chloride 0.9% 1,000 ML 999 ML IV (18:36)
[2023-10-13 19:19] LABS: Bacteria Urine TRACE /hpf; Bilirubin Urine 1+ (Negative); Blood Urine Neg (Negative); Glucose Urine UA 2+ (Normal); Ketones Urine Negative (Negative); Leukocyte Esterase Urine Trace (Negative); Mucus Urine TRACE /hpf; Nitrate Urine Negative (Negative); Protein Urine 1+ (Negative); RBC Urine 0-4 /hpf (0-2); Squamous Epithelial Cell Urine 0-4 /hpf (0-5); Urine Appearance Clear (CLEAR); Urine Color Dark Yellow (Yellow); Urobilinogen Urine 8 mg/dL (Negative); WBC Urine 0-4 /hpf (0-5); pH Urine 5 (5-7)
[2023-10-13 19:20] LABS: Add Urine Culture? No
[2023-10-13 19:46] VITALS: BP 161/83; PULSE 96; RESP 18; O2SAT 96
== END 2023-10-13 21:28 | disposition home or self-care (01) ==
PROVIDERS: Emergency Provider Emergency Medicine; PCP Nurse Practitioner
DX: R55 Syncope and collapse (principal); E86.0 Dehydration; S09.90XA Unspecified injury of head, initial encounter; Z79.82 Long term (current) use of aspirin; Z79.4 Long term (current) use of insulin; I44.0 Atrioventricular block, first degree; Z87.891 Personal history of nicotine dependence; W18.30XA Fall on same level, unspecified, initial encounter; Y92.481 Parking lot as the place of occurrence of the external cause; S42.202A Unspecified fracture of upper end of left humerus, initial encounter for closed fracture
CPT/HCPCS: 36415; 70450; 71045; 80053; 81001; 83605; 84484; 85025; 86140; 87040; 93005; 99214; 99285; J7030

== ENCOUNTER → 2023-12-06 12:49 | Outpatient (BNVA) | payer OTHER, MEDICARE, SELFPAY | PROVIDERS: PCP Nurse Practitioner; Visit Provider Emergency Medicine | DX: N39.0 Urinary tract infection, site not specified (principal) | CPT/HCPCS: 81000; 87086 ==

== ENCOUNTER 2023-12-11 11:11 | Emergency (ER) | payer OTHER, MEDICARE, SELFPAY ==
[2023-12-11 11:36] VITALS: BP 170/95; PULSE 105; RESP 18; TEMP 36.6; O2SAT 97; BMI 24.5
--- NOTE | 2023-12-11 11:49 | ED_ITS ---
HPI - Male Genitourinary 2 General: Chief complaint: Urogenital-Male Stated complaint: unable to go to bathroom Time Seen by Provider: 12/11/23 11:48 Source: patient Mode of arrival: ambulatory Limitations: no limitations History of Present Illness: Patient is a nice 83-year-old male presents to ED today with a complaint of urinary retention. Patient states he has not urinated since yesterday evening and is full . Complaining of pain and distention to his suprapubic region. Patient states he was diagnosed with UTI on 12/05 at the [facility] walk-in clinic. He was placed on antibiotics. UA reviewed from that visit which was unremarkable. He was reportedly having dysuria and frequency. He had reportedly had a recent surgery to his shoulder on 11/29 in [place]. MD Complaint: other (urinary retention) Onset (ago): hour(s) Duration: constant Location: abdomen (suprapubic) Relieving factors: none Exacerbating factors: none Associated symptoms: Reports urinary retention; Deny dysuria, hematuria, nausea, urinary incontinence or vomiting Related Data Home Medications Medication Instructions Recorded Confirmed nifedipine 30 mg tablet,extended 30 mg PO DAILY 12/11/23 12/11/23 release pantoprazole 40 mg tablet,delayed 40 mg PO QAM 12/11/23 12/11/23 release (Protonix) Previous Rx's Medication Instructions Recorded shoulder immobilizer #1 ea 10/28/23 sulfamethoxazole 800 1 tab PO BID 7 days #14 tabs 12/06/23 mg-trimethoprim 160 mg tablet (Bactrim DS) Allergies Allergy/AdvReac Type Severity Reaction Status Date / Time codeine Allergy ALGY-Rash Verified 12/11/23 11:42 hydromorphone Allergy ADR-Itching Verified 12/11/23 11:43 oxycodone Allergy ADR-Itching Verified 12/11/23 11:43 oxytetracycline Allergy ALGY-Rash Verified 12/11/23 11:42 [From Terramycin] tramadol Allergy ADR-Itching Verified 12/11/23 11:43 Review of Systems 2 Const: Denies: fever(s), chills, body aches, fatigue or malaise Card: Denies: chest pain Resp: Denies: dyspnea GI: Reports: abdominal pain; Denies: nausea, vomiting, diarrhea, hematochezia or melena : Reports: other (urinary retention); Denies: flank pain, dysuria, urinary frequency, urinary dribbling, nocturia, urinary incontinence, hematuria or testicular pain Musc: Denies: back pain PFSH ED 2 PFSH: Social History Smoking and tobacco/nicotine status: never used tobacco/nicotine Physical Exam 2 Const: COMMON NORMALS: no acute distress, average body habitus, patient oriented x3, no limitations, healthy appearing, alert and well nourished G ENERAL APPEARANCE: in distress (appears uncomfortable) Resp: COMMON NORMALS: normal respiratory effort and clear to auscultation bilaterally AUSCULTATION: clear to auscultation bilaterally Cardio: COMMON NORMALS: regular rhythm RATE: tachycardic RHYTHM: regular rhythm GI: COMMON NORMALS: No hepatosplenomegaly present INSPECTION: Yes normal to inspection and Yes other (suprapubic distention) AUSCULTATION: Yes normoactive bowel sounds PALPATION: Yes Tenderness to palpation present (GI) (suprapubic) and Yes No hepatosplenomegaly present : COMMON NORMALS: Yes no CVA tenderness BLADDER/KIDNEY EXAM: Yes no CVA tenderness Back/Pelvis: COMMON NORMALS: no CVA tenderness and thoracic and lumbar spine normal to inspection Extremity: NARRATIVE EXTREMITY EXAM: ecchymosis R 2nd two from running into something the other day GENERAL: Yes normal exam except as noted Neuro: COMMON NORMALS: patient oriented x3, moves all extremities, no focal motor deficits and no sensory deficits noted SENSORIUM/ORIENTATION: Yes alert Course 2 Vital Signs: Vital signs: Vital Signs Temperature 97.9 F 12/11/23 11:36 Pulse Rate 105 H 12/11/23 11:36 Respiratory Rate 18 12/11/23 11:36 Blood Pressure 170/95 12/11/23 11:36 Pulse Oximetry 97 12/11/23 11:36 Oxygen Delivery Me thod Room Air 12/11/23 11:36 [facility] - Male Medical Decision Making Patient with immediate relief following Daniel catheter. Approximately 1200 mL drained. Urine in bag is orange in color secondary to Azo use but is otherwise clear without clots. He is not having any abdominal or flank pain. He has a normal white count. Slight elevation of his creatinine at 1.4. It was approximately 1.3 two months ago. Suspect this will improve some following Daniel placement. UA positive for nitrates but otherwise pretty unremarkable. He is still on Bactrim so will have him finish this. Will have case management set him up with urology. He did have a separate complaint of a right second toe injury after stubbing it the other day. He does have a small fracture. Will be placed in a [employer] surgical shoe and will have him follow-up podiatry. Lab Data 12/11/23 12:01 12/11/23 12:01 Radiology Impressions Toe X-Ray 12/11/23 12:08 IMPRESSION: 1. Probable nondisplaced cortical fracture of the distal end of the second middle phalanx with soft tissue swelling. Laboratory Results WBC 7.62 10^3/uL (3.29-11.43) 12/11/23 12:01 RBC 4.29 10^6/uL (3.85-5.65) 12/11/23 12:01 Hgb 11.90 g/dL (11.27-16.99) 12/11/23 12:01 Hct 37.3 % (37-53) 12/11/23 12:01 MCV 86.9 fl (82-101) 12/11/23 12:01 MCH 27.7 pg (27-33) 12/11/23 12:01 MCHC 31.9 g/dL (30-55) 12/11/23 12:01 RDW 15.6 % (12.1-15.1) H 12/11/23 12:01 Plt Count 398 10^3/cmm (157-399) 12/11/23 12:01 MPV 10.9 fL (7.4-10.4) H 12/11/23 12:01 Neut % (Auto) 53.3 % 12/11/23 12:01 Lymph % (Auto) 27.7 % 12/11/23 12:01 [place] % (Auto) 17.1 % 12/11/23 12:01 Eos % (Auto) 0.9 % 12/11/23 12:01 Baso % (Auto) 0.7 % 12/11/23 12:01 Neut # (Auto) 4.07 10^3/uL (1.8-7.7) 12/11/23 12:01 Lymph # (Auto) 2.1 10^3/uL (0.8-4.8) 12/11/23 12:01 [place] # (Auto) 1.3 10^3/uL (0.2-0.9) H 12/11/23 12:01 Eos # (Auto) 0.1 10^3/uL (0.0-0.8) 12/11/23 12:01 Baso # (Auto) 0.1 10^3/uL (0.0-0.1) 12/11/23 12:01 Nucleated RBC % (auto) 0 % 12/11/23 12:01 Nucleated RBCs # 0.0 /100WBC 12/11/23 12:01 Sodium 132 mmol/L (136-145) L 12/11/23 12:01 Potassium 3.7 mmol/L (3.5-5.1) 12/11/23 12:01 Chloride 95 mmol/L (98-107) L 12/11/23 12:01 Carbon Dioxide 20 mmol/L (22-29) L 12/11/23 12:01 Anion Gap 20.7 (5-19) H 12/11/23 12:01 BUN 17 mg/dL (8-23) 12/11/23 12:01 Creatinine 1.4 mg/dL (0.7-1.2) H 12/11/23 12:01 GFR Calculation Not Reportable 12/11/23 12:01 Glucose 81 mg/dL (65-115) 12/11/23 12:01 Calculated Osmolality 275 mOsm/kg (285-295) L 12/11/23 12:01 Calcium 9.2 mg/dL (8.5-10.5) 12/11/23 12:01 Total Bilirubin 0.5 mg/dL (0.15-1.2) 12/11/23 12:01 AST 19 U/L (0-40) 12/11/23 12:01 ALT 14 U/L (0-41) 12/11/23 12:01 Alkaline Phosphatase 112 U/L (40-130) 12/11/23 12:01 Total Protein 7.8 g/dL (6.6-8.7) 12/11/23 12:01 Albumin 3.8 g/dL (3.5-5.2) 12/11/23 12:01 Globulin 4.0 g/dL (1.3-4.6) 12/11/23 12:01 Urine Color Dark yellow (Yellow) A 12/11/23 12:36 Urine Appearance Clear (CLEAR) 12/11/23 12:36 Urine pH 6.5 (5-7) 12/11/23 12:36 Ur Specific [place] 1.011 (1.005-1.030) 12/11/23 12:36 Urine Protein Negative (Negative) 12/11/23 12:36 Urine Glucose (UA) Negative (Normal) 12/11/23 12:36 Urine Ketones Negative (Negative) 12/11/23 12:36 Urine Blood Negative (Negative) 12/11/23 12:36 Urine Nitrate Positive (Negative) A 12/11/23 12:36 Urine Bilirubin Negative (Negative) 12/11/23 12:36 Urine Urobilinogen 1.0 mg/dL (Negative) 12/11/23 12:36 Ur Leukocyte Esterase Negative (Negative) 12/11/23 12:36 Urine RBC 3-5 /hpf (0-2) 12/11/23 12:36 Urine WBC 0-5 /hpf (0-5) 12/11/23 12:36 Ur Squamous Epith Cells 0-5 /hpf (0-5) 12/11/23 12:36 Amorphous Sediment Not Reportable 12/11/23 12:36 Urine Bacteria None seen /hpf (NONE) 12/11/23 12:36 Hyaline Casts 0.40 /lpf 12/11/23 12:36 No radiology studies performed this visit Discharge Plan Discharge Patient Disposition: Home Clinical Impression: Acute urinary retention Fracture of right toe Qualifiers: Encounter type: initial encounter Toe: lesser toe Fracture type: closed P halanx: middle Fracture alignment: nondisplaced Qualified Code(s): S92.524A - Nondisplaced fracture of middle phalanx of right lesser toe(s), initial encounter for closed fracture Condition: Stable Prescriptions: No Action (DME) shoulder immobilizer See Rx Instructions .Route .MEDSUPPLY Qty: 1 0RF Rx Instructions: As directed sulfamethoxazole-trimethoprim [Bactrim DS] 800-160 mg tablet 1 tab PO BID 7 Days Qty: 14 0RF nifedipine 30 mg Tablet Extended Release 30 mg PO DAILY Protonix 40 mg Tablet,Delayed Release (/Ec) 40 mg PO QAM Discharge Orders: Discharge ED (Routine); Ordered 12/11/23 Ordered By: Farnaz Toney Referrals: Sonja Figueroa FNP [Primary Care Provider] - Patient Instructions: Toe Fracture (ED), Urinary Retention in Men (ED) Activity Restrictions/Additional Instructions: As we discussed we will leave your Daniel in place and have case management set you up with urology for further evaluation of your acute urinary retention. You may also follow-up at the [facility] in the meantime. He need to return to the emergency department for abdominal pain, flank pain, Daniel catheter not draining appropriately, fevers, or any other concerns you may have. Small fracture to your right toe was noted on x-ray. He will be placed in a hard soled shoe and will have case management set you up with podiatry. Coding Level of Care Code ED Converting Technician for Narendra Morocho
--- NOTE | 2023-12-11 12:08 | XR_ITS ---
WS: [id number] Exam: XR toe RT min 2V [id number] Date/Time of Exam: 12/11/2023 12:20 PM Reason For Exam: trauma/ 2nd Probable small nondisplaced cortical fracture involving the distal end of the second middle phalanx. No other fractures are noted. Soft tissue swelling of the second toe. XR/XR toe RT min 2V 73436 IMPRESSION: 1. Probable nondisplaced cortical fracture of the distal end of the second midd le phalanx with soft tissue swelling.
[2023-12-11 12:17] LABS: Basophils # 0.1 10^3/uL (0.0-0.1); Basophils % 0.7 %; Eosinophils # 0.1 10^3/uL (0.0-0.8); Eosinophils % 0.9 %; Hematocrit 37.3 % (37-53); Lymphocytes # 2.1 10^3/uL (0.8-4.8); Lymphocytes % 27.7 %; Mean Corpuscular HGB Conc 31.9 g/dL (30-55); Mean Corpuscular Hemoglobin 27.7 pg (27-33); Mean Corpuscular Volume 86.9 fl (82-101); Mean Platelet Volume 10.9 fL (7.4-10.4); Monocytes # 1.3 10^3/uL (0.2-0.9); Monocytes % 17.1 %; Neutrophils # 4.07 10^3/uL (1.8-7.7); Neutrophils % 53.3 %; Nucleated Red Blood Cells % 0 %; Platelet Count 398 10^3/cmm (157-399); Red Blood Count 4.29 10^6/uL (3.85-5.65); Red Cell Distribution Width 15.6 % (12.1-15.1); White Blood Count 7.62 10^3/uL (3.29-11.43)
[2023-12-11 12:32] LABS: Alanine Aminotransferase 14 U/L (0-41); Albumin Level 3.8 g/dL (3.5-5.2); Alkaline Phosphatase 112 U/L (40-130); Aspartate Amino Transferase 19 U/L (0-40); Blood Urea Nitrogen 17 mg/dL (8-23); Calcium 9.2 mg/dL (8.5-10.5); Carbon Dioxide 20 mmol/L (22-29); Chloride 95 mmol/L (98-107); Creatinine Clr Calc Pharmacy 50.5653; Glucose 81 mg/dL (65-115); Osmolality Calculated 275 mOsm/kg (285-295); Sodium 132 mmol/L (136-145); Total Bilirubin 0.5 mg/dL (0.15-1.2); Total Protein 7.8 g/dL (6.6-8.7)
[2023-12-11 12:33] LABS: Anion Gap 20.7 (5-19); Potassium 3.7 mmol/L (3.5-5.1)
[2023-12-11 12:42] LABS: Charge for UA Resulting for Rev
[2023-12-11 12:47] LABS: Bilirubin Urine Negative (Negative); Blood Urine Negative (Negative); Glucose Urine UA Negative (Normal); Ketones Urine Negative (Negative); Leukocyte Esterase Urine Negative (Negative); Nitrate Urine Positive (Negative); Protein Urine Negative (Negative); Specific Gravity, Urine 1.011 (1.005-1.030); Urine Appearance Clear (CLEAR); Urine Color Dark Yellow (Yellow); pH Urine 6.5 (5-7)
--- NOTE | 2023-12-11 12:48 | PC.PHAR ---
Addendum entered by Tahira Tripp 12/11/23 12:53: blood pressure medication left on list. Original Note: Pt was sent over from [facility] with a med list with Nifedipine sa 30mg once daily and pantoprazole 40mg in am. Pt had several meds on his recent list that include: aspirin 81mg daily, insulin lispro u-100 10 units 3 times daily, Naproxen 500mg twice daily, Omeprazole 20mg daily. Pt states he no longer takes any of them and is not taking his blood pressure medication either. All were removed from hospital med list. Pt has new order for Pantoprazole 40 mg daily and Bactrim ds twice daily. Pt is taking both of these medications.
[2023-12-11 12:53] LABS: Bacteria Urine None Seen /hpf; Squamous Epithelial Cell Urine 0-5 /hpf (0-5); WBC Urine 0-5 /hpf (0-5)
[2023-12-11 13:36] VITALS: BP 156/92; PULSE 95; RESP 16; O2SAT 96
--- NOTE | 2023-12-11 13:38 | PC.NURSE ---
1000mL drained from indwelling frazier prior to d/c
--- NOTE | 2023-12-16 07:26 | DCPLANNER ---
Referral for urology sent to [facility] [place] -
== END 2023-12-11 13:48 | disposition home or self-care (01) ==
PROVIDERS: Emergency Provider Physician Assistant; PCP Nurse Practitioner
DX: R33.9 Retention of urine, unspecified (principal); S92.524A Nondisplaced fracture of middle phalanx of right lesser toe(s), initial encounter for closed fracture; W22.09XA Striking against other stationary object, initial encounter
CPT/HCPCS: 36415; 51702; 51798; 73660; 80053; 81003; 81015; 85025; 99284

== ENCOUNTER 2023-12-14 01:23 | Emergency (ER) | payer OTHER, MEDICARE, SELFPAY ==
[2023-12-14 01:37] VITALS: BP 111/68; PULSE 98; RESP 18; O2SAT 96; BMI 24.3
[2023-12-14 02:40] LABS: Charge for UA Resulting for Rev
[2023-12-14 02:44] LABS: Basophils % 0.3 %; Eosinophils # 0.1 10^3/uL (0.0-0.8); Hematocrit 31.5 % (37-53); Lymphocytes # 2.6 10^3/uL (0.8-4.8); Lymphocytes % 26.1 %; Mean Corpuscular HGB Conc 32.7 g/dL (30-55); Mean Corpuscular Hemoglobin 27.3 pg (27-33); Mean Corpuscular Volume 83.6 fl (82-101); Mean Platelet Volume 9.7 fL (7.4-10.4); Monocytes # 1.4 10^3/uL (0.2-0.9); Monocytes % 13.7 %; Neutrophils # 5.83 10^3/uL (1.8-7.7); Neutrophils % 58.6 %; Nucleated Red Blood Cells % 0 %; Platelet Count 470 10^3/cmm (157-399); Red Blood Count 3.77 10^6/uL (3.85-5.65); White Blood Count 9.94 10^3/uL (3.29-11.43)
[2023-12-14 02:45] LABS: Bilirubin Urine 1+ (Negative); Blood Urine 1+ (Negative); Glucose Urine UA Negative (Normal); Ketones Urine Negative (Negative); Leukocyte Esterase Urine 3+ (Negative); Nitrate Urine Positive (Negative); Protein Urine 1+ (Negative); Specific Gravity, Urine 1.018 (1.005-1.030); Urine Appearance Turbid (CLEAR); pH Urine 5.5 (5-7)
[2023-12-14 02:52] LABS: Urine Color Red (Yellow)
[2023-12-14 02:57] VITALS: BP 145/92; PULSE 87; RESP 18; O2SAT 97
[2023-12-14 02:59] LABS: Alanine Aminotransferase 10 U/L (0-41); Albumin Level 3.2 g/dL (3.5-5.2); Alkaline Phosphatase 93 U/L (40-130); Anion Gap 16.9 (5-19); Aspartate Amino Transferase 16 U/L (0-40); Blood Urea Nitrogen 15 mg/dL (8-23); C Reactive Protein 18.7 mg/L (0.0-4.9); Calcium 8.4 mg/dL (8.5-10.5); Carbon Dioxide 22 mmol/L (22-29); Chloride 99 mmol/L (98-107); Creatinine Clr Calc Pharmacy 54.2377; Globulin 3.5 g/dL (1.3-4.6); Glucose 167 mg/dL (65-115); Osmolality Calculated 283 mOsm/kg (285-295); Potassium 3.9 mmol/L (3.5-5.1); Sodium 134 mmol/L (136-145); Total Bilirubin 0.6 mg/dL (0.15-1.2); Total Protein 6.7 g/dL (6.6-8.7)
[2023-12-14 03:00] LABS: Add Urine Culture? Yes; Bacteria Urine 2+ /hpf; RBC Urine >100 /hpf (0-2); UA Manual Slide Review YES; UA Slide Review UA Slide Review Perf; WBC Urine >100 /hpf (0-5)
--- NOTE | 2023-12-14 03:55 | W.ED.MALEGU ---
HPI - Male Genitourinary General: Chief complaint: Urogenital-Male Stated complaint: blood in urin Time Seen by Provider: 12/14/23 01:48 History of Present Illness: 83-year-old male who had a Daniel placed 3 days ago due to urinary retention acutely. He has done well with this. He has been previously diagnosed with a urinary tract infection. It seems to be clearing on Thursday. Last evening, he noticed blood in his bag. It seemed to get darker, so he became concerned and came in. Related Data Home Medications Medication Instructions Recorded Confirmed nifedipine 30 mg tablet,extended 30 mg PO DAILY 12/11/23 12/11/23 release pantoprazole 40 mg tablet,delayed 40 mg PO QAM 12/11/23 12/11/23 release (Protonix) Previous Rx's Medication Instructions Recorded shoulder immobilizer #1 ea 10/28/23 cefdinir 300 mg capsule 300 mg PO BID #14 caps 12/14/23 Allergies Allergy/AdvReac Type Severity Reaction Status Date / Time codeine Allergy ALGY-Rash Verified 12/11/23 11:42 hydromorphone Allergy ADR-Itching Verified 12/11/23 11:43 oxycodone Allergy ADR-Itching Verified 12/11/23 11:43 oxytetracycline Allergy ALGY-Rash Verified 12/11/23 11:42 [From Terramycin] tramadol Allergy ADR-Itching Verified 12/11/23 11:43 [facility] ED PFSH: Social History Smoking and tobacco/nicotine status: never used tobacco/nicotine Physical Exam Const: COMMON NORMALS: no acute distress GENERAL APPEARANCE: cooperative; not ill appearing and not frail appearing HENMT: COMMON NORMALS: normocephalic, atraumatic and Normal external nose present HEAD & SCALP: normocephalic and atraumatic FACE & SINUS: normal facial exam and face symmetric NOSE: Normal external nose present Eye: COMMON NORMALS: Equal, round and reactive pupils present and EOMs intact bilaterally PUPIL: Yes Equal, round and reactive pupils present Neck/C-Spine: GENERAL: Yes trachea midline Chest: CHEST: Yes Symmetrical chest wall rise Resp: COMMON NORMALS: normal respiratory effort, No retractions, No use of accessory muscles and clear to auscultation bilaterally AUSCULTATION: clear to auscultation bilaterally Cardio: COMMON NORMALS: regular rate and regular rhythm RATE: regular rate RHYTHM: regular rhythm GI: COMMON NORMALS: Normal to inspection, nondistended, normoactive bowel sounds present : OTHER: Daniel in place. Dark blood in the bag. Clearing in the tube. No significant clot formation. Extremity: COMMON NORMALS: no pedal edema Neuro: JUAN COMA SCALE: document GCS findings [place] coma scale eye opening: Spontaneous Juan coma scale verbal response: Orientated [place] coma scale motor response: Obey commands [place] coma scale total score: 15 SENSORY EXAM: Yes extremities (intact) Psych: COMMON NORMALS: speech normal SPEECH: Yes normal speech Skin: COMMON NORMALS: no rashes or lesions noted GENERAL SKIN EXAM: no rashes or lesions noted Course Vital Signs: Vital signs: Vital Signs Pulse Rate 89 12/14/23 04:23 Respiratory Rate 18 12/14/23 04:23 Blood Pressure 151/109 12/14/23 04:23 Pulse Oximetry 92 12/14/23 04:23 Oxygen Delivery Me thod Room Air 12/14/23 02:57 MDM - Male Medical Decision Making Nursing is flush the Daniel, and it is flowing. Treasurer colored urine is coming out now. Bladder scan shows no urinary retention with Daniel in place. Hemoglobin is 10.3. Creatinine is 1.3. He is not on anticoagulation. He does have a nitrate positive 3+ leukocyte esterase urine. He will be covered with antibiotics for this. He has been referred to urology as an outpatient. He will follow-up with his PCP for potential Daniel removal later this week. Lab Data 12/14/23 02:39 12/14/23 02:39 Laboratory Results WBC 9.94 10^3/uL (3.29-11.43) 12/14/23 02:39 RBC 3.77 10^6/uL (3.85-5.65) L 12/14/23 02:39 Hgb 10.30 g/dL (11.27-16.99) L 12/14/23 02:39 Hct 31.5 % (37-53) L 12/14/23 02:39 MCV 83.6 fl (82-101) 12/14/23 02:39 MCH 27.3 pg (27-33) 12/14/23 02:39 MCHC 32.7 g/dL (30-55) 12/14/23 02:39 RDW 15.0 % (12.1-15.1) 12/14/23 02:39 Plt Count 470 10^3/cmm (157-399) H 12/14/23 02:39 MPV 9.7 fL (7.4-10.4) 12/14/23 02:39 Neut % (Auto) 58.6 % 12/14/23 02:39 Lymph % (Auto) 26.1 % 12/14/23 02:39 [place] % (Auto) 13.7 % 12/14/23 02:39 Eos % (Auto) 1.0 % 12/14/23 02:39 Baso % (Auto) 0.3 % 12/14/23 02:39 Neut # (Auto) 5.83 10^3/uL (1.8-7.7) 12/14/23 02:39 Lymph # (Auto) 2.6 10^3/uL (0.8-4.8) 12/14/23 02:39 [place] # (Auto) 1.4 10^3/uL (0.2-0.9) H 12/14/23 02:39 Eos # (Auto) 0.1 10^3/uL (0.0-0.8) 12/14/23 02:39 Baso # (Auto) 0.0 10^3/uL (0.0-0.1) 12/14/23 02:39 Nucleated RBC % (auto) 0 % 12/14/23 02:39 Nucleated RBCs # 0.0 /100WBC 12/14/23 02:39 Sodium 134 mmol/L (136-145) L 12/14/23 02:39 Potassium 3.9 mmol/L (3.5-5.1) 12/14/23 02:39 Chloride 99 mmol/L (98-107) 12/14/23 02:39 Carbon Dioxide 22 mmol/L (22-29) 12/14/23 02:39 Anion Gap 16.9 (5-19) 12/14/23 02:39 BUN 15 mg/dL (8-23) 12/14/23 02:39 Creatinine 1.3 mg/dL (0.7-1.2) H 12/14/23 02:39 GFR Calculation Not Reportable 12/14/23 02:39 Glucose 167 mg/dL (65-115) H 12/14/23 02:39 Calculated Osmolality 283 mOsm/kg (285-295) L 12/14/23 02:39 Calcium 8.4 mg/dL (8.5-10.5) L 12/14/23 02:39 Total Bilirubin 0.6 mg/dL (0.15-1.2) 12/14/23 02:39 AST 16 U/L (0-40) 12/14/23 02:39 ALT 10 U/L (0-41) 12/14/23 02:39 Alkaline Phosphatase 93 U/L (40-130) 12/14/23 02:39 C-Reactive Protein 18.7 mg/L (0.0-4.9) H 12/14/23 02:39 Total Protein 6.7 g/dL (6.6-8.7) 12/14/23 02:39 Albumin 3.2 g/dL (3.5-5.2) L 12/14/23 02:39 Globulin 3.5 g/dL (1.3-4.6) 12/14/23 02:39 Urine Color Red (Yellow) A 12/14/23 02:25 Urine Appearance Turbid (CLEAR) A 12/14/23 02:25 Urine pH 5.5 (5-7) 12/14/23 02:25 Ur Specific [place] 1.018 (1.005-1.030) 12/14/23 02:25 Urine Protein 1+ (Negative) A 12/14/23 02:25 Urine Glucose (UA) Negative (Normal) 12/14/23 02:25 Urine Ketones Negative (Negative) 12/14/23 02:25 Urine Blood 1+ (Negative) A 12/14/23 02:25 Urine Nitrate Positive (Negative) A 12/14/23 02:25 Urine Bilirubin 1+ (Negative) H 12/14/23 02:25 Urine Urobilinogen 1.0 mg/dL (Negative) 12/14/23 02:25 Ur Leukocyte Esterase 3+ (Negative) A 12/14/23 02:25 Urine RBC >100 /hpf (0-2) H 12/14/23 02:25 Urine WBC >100 /hpf (0-5) H 12/14/23 02:25 Ur Squamous Epith Cells None /hpf (0-5) 12/14/23 02:25 Amorphous Sediment Not Reportable 12/14/23 02:25 Urine Bacteria 2+ /hpf (NONE) H 12/14/23 02:25 All radiology interpretation(s) finalized by discharge Discharge Plan Discharge Patient Disposition: Home Clinical Impression: Complication of Daniel catheter, Urinary tract infection, Hematuria Condition: Stable Prescriptions: New cefdinir 300 mg capsule 300 mg PO BID Qty: 14 0RF Discontinued sulfamethoxazole-trimethoprim [Bactrim DS] 800-160 mg tablet 1 tab PO BID 7 Days Qty: 14 0RF No Action (DME) shoulder immobilizer See Rx Instructions .Route .MEDSUPPLY Qty: 1 0RF Rx Instructions: As directed nifedipine 30 mg Tablet Extended Release 30 mg PO DAILY Protonix 40 mg Tablet,Delayed Release (Dr/Ec) 40 mg PO QAM Discharge Orders: Discharge ED (Routine); Ordered 12/14/23 Ordered By: Mehdi Hall Referrals: Sonja Figueroa FNP [Primary Care Provider] - 1-3 days Patient Instructions: Urinary Tract Infection in Men (ED), Daniel Catheter Placement and Care (ED), Hematuria (ED), Opioid Safety, Pain Management Activity Restrictions/Additional Instructions: Antibiotics as directed for urinary tract infection. That combined with your Daniel catheter is likely the reason you have bled. Keep your urology appointment when referred. Follow-up with your doctor this coming week, for potential Daniel removal trial. Return for worsening pain, worsening bleeding in the catheter, fever despite 2-3 doses of antibiotics, other concerning symptoms. Coding Level of Care Code ED Teacher Public Health for Narendra Morocho
[2023-12-14 04:23] VITALS: BP 151/109; PULSE 89; RESP 18; O2SAT 92
== END 2023-12-14 04:25 | disposition home or self-care (01) ==
PROVIDERS: Emergency Provider Emergency Medicine; PCP Nurse Practitioner
DX: T83.9XXA Unspecified complication of genitourinary prosthetic device, implant and graft, initial encounter (principal); N39.0 Urinary tract infection, site not specified; R31.9 Hematuria, unspecified
CPT/HCPCS: 36415; 80053; 81003; 81015; 85025; 86140; 87077; 87086; 87186; 99283

== ENCOUNTER 2023-12-20 12:34 | Emergency (ER) | payer OTHER, MEDICARE, SELFPAY ==
[2023-12-20 12:39] VITALS: BP 173/95; PULSE 100; RESP 18; TEMP 36.5; O2SAT 96; BMI 25.7
--- NOTE | 2023-12-20 12:55 | W.ED.MALEGU ---
HPI - Male Genitourinary General: Chief complaint: Urogenital-Male Stated complaint: UTI Time Seen by Provider: 12/20/23 12:46 History of Present Illness: 83-year-old man with a history of hypertension and recent left shoulder surgery. He had developed urinary retention and UTI in open started on antibiotics and had a Daniel temporary placed and then had another round of Omnicef which he is completing today. But he has developed worsening dysuria and urinary incontinence. No fevers. No nausea or vomiting. No altered mental status. No focal motor deficits. Related Data Home Medications Medication Instructions Recorded Confirmed nifedipine 30 mg tablet,extended 30 mg PO DAILY 12/11/23 12/11/23 release pantoprazole 40 mg tablet,delayed 40 mg PO QAM 12/11/23 12/11/23 release (Protonix) Previous Rx's Medication Instructions Recorded shoulder immobilizer #1 ea 10/28/23 cefdinir 300 mg capsule 300 mg PO BID #14 caps 12/14/23 cephalexin 500 mg capsule 500 mg PO BID 5 days #10 caps 12/20/23 tamsulosin 0.4 mg capsule (Flomax) 0.4 mg PO DAILY #30 caps 12/20/23 Allergies Allergy/AdvReac Type Severity Reaction Status Date / Time codeine Allergy ALGY-Rash Verified 12/11/23 11:42 hydromorphone Allergy ADR-Itching Verified 12/11/23 11:43 oxycodone Allergy ADR-Itching Verified 12/11/23 11:43 oxytetracycline Allergy ALGY-Rash Verified 12/11/23 11:42 [From Terramycin] tramadol Allergy ADR-Itching Verified 12/11/23 11:43 Review of Systems Narrative: Constitutional symptoms: Negative except as documented in HPI. Skin symptoms: Negative except as documented in HPI. Eye symptoms: Negative except as documented in HPI. ENMT symptoms: Negative except as documented in HPI. Respiratory symptoms: Negative except as documented in HPI. Cardiovascular symptoms: Negative except as documented in HPI. Gastrointestinal symptoms: Negative except as documented in HPI. Genitourinary symptoms: Negative except as documented in HPI. Musculoskeletal symptoms: Negative except as documented in HPI. Neurologic symptoms: Negative except as documented in HPI. Psychiatric symptoms: Negative except as documented in HPI. Endocrine symptoms: Negative except as documented in HPI. PFSH ED PFSH: Social History Smoking and tobacco/nicotine status: never used tobacco/nicotine Physical Exam Narrative: EXAM NARRATIVE: General: Alert, no acute distress. Skin: Warm, dry. Head: Normocephalic, atraumatic. Neck: Supple, trachea midline. Eye: Extraocular movements are intact. Ears, nose, mouth and throat: mucosa moist. Cardiovascular: Regular, Normal peripheral perfusion. Respiratory: Lungs are clear to auscultation, respirations are non-labored, breath sounds are equal, Symmetrical chest wall expansion. Gastrointestinal: Soft, suprapubic tenderness, Non distended Musculoskeletal: Normal ROM, no deformity. Neurological: Alert and oriented, No focal neurological deficit observed. Psychiatric: Cooperative, appropriate mood & affect. Course Vital Signs: Vital signs: Vital Signs Temperature 97.7 F 12/20/23 12:39 Pulse Rate 100 12/20/23 12:39 Respiratory Rate 18 12/20/23 12:39 Blood Pressure 173/95 12/20/23 12:39 Pulse Oximetry 96 12/20/23 12:39 Oxygen Delivery Me thod Room Air 12/20/23 12:39 MDM - Male Medical Decision Making Medical decision making: Differential diagnosis including but not limited to and based on the above HPI, review of systems and physical exam: Differential diagnosis for patient with dysuria / lower abdominal pain: Ureterolithiasis. Urinary tract infection. Cystitis. With the possibility of sepsis, pyelonephritis and renal failure. Orders placed to evaluate differential diagnosis based on the above differential, HPI and physical exam Lab Review: Laboratory results were reviewed and interpreted by myself the emergency room physician. No leukocytosis. BUN/creatinine are 17 and 1.3 which is at his baseline. Urine does appear improved relative to previous. He still has some nitrate and minimal whites with no bacteria seen. Given his continued symptoms of going to continue him on some antibiotics and give some cefepime here. I reviewed the patient's medical record. Micro from last urine culture shows E. coli that is resistant to Cipro and Bactrim. Bladder scan: Bladder scan showed over 800 cc in the bladder. Daniel catheter placement: Just over 1000 cc of urine out with Daniel placement. Consultation: I spoke with Dr. Williamson with urology at [facility] in [place]. He agrees with placement of Daniel, starting Flomax and we will see the patient in urology clinic later this week. They will contact the patient tomorrow for an appointment. I have provided him with the information. Reexamination: Patient remained stable. No increased work of breathing. No altered mental status. No focal motor deficits. Suprapubic tenderness has improved. Quite a bit of urine out. I discussed all of the findings with his and with him. He is pretty hard of hearing however. Assessment and plan: Urinary retention Urinary tract infection ?IV cefepime here. Will continue 5 more days of antibiotics. UTI is almost completely resolved but he still having symptoms. Referral to urology. Daniel catheter was placed with over 1000 cc out. Instructions for Daniel care at home were given. - Discharged home - Discussed plan with patient. Answered any questions. - Evaluation and treatment of this problem were appropriate in the emergency setting. Lab Data 12/20/23 13:15 12/20/23 13:15 Laboratory Results WBC 5.95 10^3/uL (3.29-11.43) 12/20/23 13:15 RBC 4.07 10^6/uL (3.85-5.65) 12/20/23 13:15 Hgb 11.40 g/dL (11.27-16.99) 12/20/23 13:15 Hct 34.9 % (37-53) L 12/20/23 13:15 MCV 85.7 fl (82-101) 12/20/23 13:15 MCH 28.0 pg (27-33) 12/20/23 13:15 MCHC 32.7 g/dL (30-55) 12/20/23 13:15 RDW 15.1 % (12.1-15.1) 12/20/23 13:15 Plt Count 524 10^3/cmm (157-399) H 12/20/23 13:15 MPV 9.5 fL (7.4-10.4) 12/20/23 13:15 Neut % (Auto) 45.3 % 12/20/23 13:15 Lymph % (Auto) 38.2 % 12/20/23 13:15 [place] % (Auto) 13.8 % 12/20/23 13:15 Eos % (Auto) 1.7 % 12/20/23 13:15 Baso % (Auto) 0.8 % 12/20/23 13:15 Neut # (Auto) 2.70 10^3/uL (1.8-7.7) 12/20/23 13:15 Lymph # (Auto) 2.3 10^3/uL (0.8-4.8) 12/20/23 13:15 [place] # (Auto) 0.8 10^3/uL (0.2-0.9) 12/20/23 13:15 Eos # (Auto) 0.1 10^3/uL (0.0-0.8) 12/20/23 13:15 Baso # (Auto) 0.1 10^3/uL (0.0-0.1) 12/20/23 13:15 Nucleated RBC % (auto) 0 % 12/20/23 13:15 Nucleated RBCs # 0.0 /100WBC 12/20/23 13:15 Sodium 134 mmol/L (136-145) L 12/20/23 13:15 Potassium 4.2 mmol/L (3.5-5.1) 12/20/23 13:15 Chloride 98 mmol/L (98-107) 12/20/23 13:15 Carbon Dioxide 24 mmol/L (22-29) 12/20/23 13:15 Anion Gap 16.2 (5-19) 12/20/23 13:15 BUN 17 mg/dL (8-23) 12/20/23 13:15 Creatinine 1.3 mg/dL (0.7-1.2) H 12/20/23 13:15 GFR Calculation Not Reportable 12/20/23 13:15 Glucose 223 mg/dL (65-115) H 12/20/23 13:15 Calculated Osmolality 286 mOsm/kg (285-295) 12/20/23 13:15 Lactic Acid 1.4 mmol/L (0.5-2.2) 12/20/23 13:15 Calcium 8.8 mg/dL (8.5-10.5) 12/20/23 13:15 Total Bilirubin 0.5 mg/dL (0.15-1.2) 12/20/23 13:15 AST 15 U/L (0-40) 12/20/23 13:15 ALT 9 U/L (0-41) 12/20/23 13:15 Alkaline Phosphatase 114 U/L (40-130) 12/20/23 13:15 C-Reactive Protein 7.0 mg/L (0.0-4.9) H 12/20/23 13:15 Total Protein 7.4 g/dL (6.6-8.7) 12/20/23 13:15 Albumin 3.6 g/dL (3.5-5.2) 12/20/23 13:15 Globulin 3.8 g/dL (1.3-4.6) 12/20/23 13:15 Procalcitonin 0.05 ng/mL (0-0.5) 12/20/23 13:15 Urine Color [place] (Yellow) A 12/20/23 12:51 Urine Appearance Clear (CLEAR) 12/20/23 12:51 Urine pH 5.5 (5-7) 12/20/23 12:51 Ur Specific [place] 1.009 (1.005-1.030) 12/20/23 12:51 Urine Protein Trace (Negative) A 12/20/23 12:51 Urine Glucose (UA) Negative (Normal) 12/20/23 12:51 Urine Ketones Negative (Negative) 12/20/23 12:51 Urine Blood Negative (Negative) 12/20/23 12:51 Urine Nitrate Positive (Negative) A 12/20/23 12:51 Urine Bilirubin 1+ (Negative) H 12/20/23 12:51 Urine Urobilinogen 1.0 mg/dL (Negative) 12/20/23 12:51 Ur Leukocyte Esterase 1+ (Negative) A 12/20/23 12:51 Urine RBC 0-2 /hpf (0-2) 12/20/23 12:51 Urine WBC 0-5 /hpf (0-5) 12/20/23 12:51 Ur Squamous Epith Cells 0-5 /hpf (0-5) 12/20/23 12:51 Amorphous Sediment Not Reportable 12/20/23 12:51 Urine Bacteria None seen /hpf (NONE) 12/20/23 12:51 Hyaline Casts 0.81 /lpf 12/20/23 12:51 All radiology interpretation(s) finalized by discharge Discharge Plan Discharge Patient Disposition: Home Clinical Impression: Urinary retention Condition: Stable Prescriptions: New Flomax 0.4 mg capsule 0.4 mg PO DAILY Qty: 30 0RF cephalexin 500 mg capsule 500 mg PO BID 5 Days Qty: 10 0RF No Action (DME) shoulder immobilizer See Rx Instructions .Route .MEDSUPPLY Qty: 1 0RF Rx Instructions: As directed cefdinir 300 mg capsule 300 mg PO BID Qty: 14 0RF nifedipine 30 mg Tablet Extended Release 30 mg PO DAILY Protonix 40 mg Tablet,Delayed Release (Dr/Ec) 40 mg PO QAM Discharge Orders: Discharge ED (Routine); Ordered 12/20/23 Ordered By: Kimberly Franco Referrals: Papo Williamson [Referring] - 4-7 days (Please call for an appointment. Dr. Williamson should be able to see you early next week.) Sonja Fiugeroa, SPEECH COMMUNICATION PROFESSOR [Primary Care Provider] - Discharge Diet: Usual diet Discharge Activity: Increase activity as tolerated Patient Instructions: Urinary Retention in Men (ED), Daniel Catheter Placement and Care (ED), How to Change a Catheter Drainage Bag (DC) Activity Restrictions/Additional Instructions: Thank you for choosing [facility] for your healthcare needs today. Please realize this is an emergency room and that we are providing you with a medical screening exam and this may not be complete and all inclusive of all the testing and or work up that you may need to determine your ailment or severity of your illness. You have been screened and evaluated and felt safe for discharge. Health conditions do change or evolve sometimes and as such it is important that you follow up with your Primary Doctor to be re checked, 3-5 days is a general good time frame for follow up. You are always welcome to return to the ED for re assessment if your symptoms are worsening or you have new concerns Coding Level of Care Code ED Head Of Geography for Narendra Morocho
[2023-12-20 13:08] LABS: Bilirubin Urine 1+ (Negative); Blood Urine Negative (Negative); Glucose Urine UA Negative (Normal); Ketones Urine Negative (Negative); Leukocyte Esterase Urine 1+ (Negative); Nitrate Urine Positive (Negative); Protein Urine Trace (Negative); Specific Gravity, Urine 1.009 (1.005-1.030); Urine Appearance Clear (CLEAR); pH Urine 5.5 (5-7)
[2023-12-20 13:13] LABS: Bacteria Urine None Seen /hpf; Hyaline Casts Urine 0.81 /lpf; RBC Urine 0-2 /hpf (0-2); Squamous Epithelial Cell Urine 0-5 /hpf (0-5); WBC Urine 0-5 /hpf (0-5)
[2023-12-20 13:21] LABS: Basophils # 0.1 10^3/uL (0.0-0.1); Basophils % 0.8 %; Eosinophils # 0.1 10^3/uL (0.0-0.8); Eosinophils % 1.7 %; Hematocrit 34.9 % (37-53); Lymphocytes # 2.3 10^3/uL (0.8-4.8); Lymphocytes % 38.2 %; Mean Corpuscular HGB Conc 32.7 g/dL (30-55); Mean Corpuscular Volume 85.7 fl (82-101); Mean Platelet Volume 9.5 fL (7.4-10.4); Monocytes # 0.8 10^3/uL (0.2-0.9); Monocytes % 13.8 %; Neutrophils % 45.3 %; Nucleated Red Blood Cells % 0 %; Platelet Count 524 10^3/cmm (157-399); Red Blood Count 4.07 10^6/uL (3.85-5.65); Red Cell Distribution Width 15.1 % (12.1-15.1); White Blood Count 5.95 10^3/uL (3.29-11.43)
[2023-12-20 13:23] LABS: Add Urine Culture? Yes; Urine Color Orange (Yellow)
[2023-12-20 13:41] LABS: Alanine Aminotransferase 9 U/L (0-41); Albumin Level 3.6 g/dL (3.5-5.2); Alkaline Phosphatase 114 U/L (40-130); Anion Gap 16.2 (5-19); Aspartate Amino Transferase 15 U/L (0-40); Blood Urea Nitrogen 17 mg/dL (8-23); Calcium 8.8 mg/dL (8.5-10.5); Carbon Dioxide 24 mmol/L (22-29); Chloride 98 mmol/L (98-107); Globulin 3.8 g/dL (1.3-4.6); Glucose 223 mg/dL (65-115); Lactic Sepsis W/Reflex 1.4 mmol/L (0.5-2.2); Osmolality Calculated 286 mOsm/kg (285-295); Potassium 4.2 mmol/L (3.5-5.1); Sodium 134 mmol/L (136-145); Total Bilirubin 0.5 mg/dL (0.15-1.2); Total Protein 7.4 g/dL (6.6-8.7)
[2023-12-20 13:42] LABS: Creatinine Clr Calc Pharmacy 55.5405
[2023-12-20 13:47] LABS: Procalcitonin 0.05 ng/mL (0-0.5)
[2023-12-20] MEDS: cefepime 2,000 MG in sodium chloride 0.9% (plus) 50 ML 100 MG IV (14:25)
[2023-12-20 15:24] VITALS: BP 169/87; PULSE 75; RESP 16; O2SAT 95
== END 2023-12-20 15:22 | disposition home or self-care (01) ==
PROVIDERS: Emergency Provider Emergency Medicine; PCP Nurse Practitioner
DX: R33.9 Retention of urine, unspecified (principal); Z87.440 Personal history of urinary (tract) infections; I10 Essential (primary) hypertension
CPT/HCPCS: 36415; 51702; 51798; 80053; 81001; 83605; 84145; 85025; 86140; 87086; 96365; 99284; J0692

== ENCOUNTER → 2023-12-21 09:15 | Outpatient (BNVA) | payer OTHER, MEDICARE, SELFPAY | PROVIDERS: PCP Nurse Practitioner; Visit Provider Internal Medicine | DX: E11.9 Type 2 diabetes mellitus without complications (principal); E78.5 Hyperlipidemia, unspecified; N39.0 Urinary tract infection, site not specified | CPT/HCPCS: 99204 ==

== ENCOUNTER 2024-03-29 12:34 | Emergency (ER) | payer OTHER, MEDICARE, SELFPAY ==
--- NOTE | 2024-03-29 12:36 | XRR_ITS ---
PROCEDURE INFORMATION: Exam: XR Chest Exam date and time: 03/29/2024 1:19 PM Age: 83 years old Clinical indication: Pain; Angina pectoris; Additional info: Chest pain TECHNIQUE: Imaging protocol: Radiologic exam of the chest. Views: 1 view. COMPARISON: CR XR chest 1V portable [id number] 10/13/2023 4:58 PM FINDINGS: Lungs: Mild coarsening of the pulmonary interstitium again noted. No acute pulmonary pathology. Pleural spaces: No pleural effusion. Heart/Mediastinum: Cardiomediastinal contours within normal limits. Diaphragm: Elevated right hemidiaphragm. Bones/joints: Left shoulder replacement. Old healed left clavicle fracture XR/XR chest 1V portable [id number] IMPRESSION: No acute pathology or significant interval change.
--- NOTE | 2024-03-29 12:39 | ECG_ITS ---
[facility] Pat Name: Abdirahman Carson Department: Room: Gender: Male [employer]: : 1940 Requested By: Farnaz Toney Order Number: [id number] See MD: Prabhakar Kim M.D. Measurements Intervals [place] Rate: 83 P: 6 KS: 210 QRS: -49 QRSD: 114 T: 86 QT: 381 QTc: 450 Interpretive Statements SINUS RHYTHM WITH FIRST DEGREE AV BLOCK LEFT ANTERIOR FASCICULAR BLOCK [QRS AXIS <= -45, QR IN I, RS IN II] LEFT VENTRICULAR HYPERTROPHY AND ST-T CHANGE [VOLTAGE CRITERIA PLUS ST/T ABNORMALITY] POSSIBLE SEPTAL MYOCARDIAL INFARCTION , PROBABLY OLD [30 ms Q WAVE IN V1/V2] Compared to ECG 10/13/2023 17:15:54 No significant changes Electronically Signed On 03-29-2024 15:09:33 PORTAL ARCHITECT by Prabhakar Kim M.D. [email or web address]
[2024-03-29 12:42] VITALS: BP 173/100; PULSE 88; RESP 16; TEMP 36.8; O2SAT 97; BMI 24.3
--- NOTE | 2024-03-29 12:46 | PC.PHAR ---
[facility] is [facility], [facility] fax
--- NOTE | 2024-03-29 12:52 | ED_ITS ---
HPI - Syncope 2 General: Chief Complaint: Chest Pain Stated Complaint: chest pain Time Seen by Provider: 03/29/24 12:36 Source: patient Mode of arrival: EMS Limitations: no limitations History of Present Illness: Patient is a nice 83-year-old male with a history of hyperlipidemia, diabetes, coronary artery disease with previous stent here from the [place] following a presyncopal episode. Patient states he went to the [place] office for a refill of his insulin. He states he was asymptomatic when he went to their office. He reportedly stood up too quickly and got dizzy and thus they called for an ambulance. Patient states he has been having dizziness episodes only with positional changes over the past several weeks. He had similar symptoms back in September and was taken off of few of his blood pressure medications at that time. He does state a few weeks ago he had an episode of left-sided chest pain while he was laying down in bed. He does state today his left chest hurt him earlier but not really now upon arrival. He has no complaints of shortness of breath or difficulty breathing. Vital signs are stable upon arrival apart from he is hypertensive. MD complaint: other (pre-syncope/dizzy) Onset (ago): hour(s) -: minutes(s) Prodromal symptoms: other (positional change) Witnessed: Yes - by Bystander Context: standing up Injuries sustained associated with event: none Associated symptoms: Reports no associated symptoms and chest pain (none currently); Deny abdominal pain, fever(s), headache(s), lightheadedness, nausea or vertigo Treatments prior to arrival: none Related Data Home Medications Medication Instructions Recorded Confirmed pantoprazole 40 mg tablet,delayed 40 mg PO QAM 12/11/23 03/29/24 release (Protonix) infusion set for insulin pump 12/21/23 03/29/24 ([facility] [place] Advance Infusion Set 43 ) cholecalciferol (vitamin D3) 10 10 mcg PO DAILY 03/29/24 03/29/24 mcg (400 unit) capsule (Vitamin D3) insulin aspart U-100 100 unit/mL See Rx Instructions .Route .COMPLEX 03/29/24 03/29/24 (3 mL) subcutaneous pen lisinopril 20 mg tablet 20 mg PO DAILY 03/29/24 03/29/24 nifedipine 30 mg tablet,extended 30 mg PO DAILY 03/29/24 03/29/24 release tamsulosin 0.4 mg capsule 0.4 mg PO DAILY 03/29/24 03/29/24 Previous Rx's Medication Instructions Recorded shoulder immobilizer #1 ea 10/28/23 infusion set for insulin pump #10 ea 12/21/23 ([facility] [place] Advance Infusion Set 23 ) insulin pump syringe 3 mL #10 ea 12/21/23 ([facility] [place]) alirocumab 75 mg/mL subcutaneous 75 mg SUBCUT Q14D #2 mL 12/23/23 pen injector (Praluent Pen) Allergies Allergy/AdvReac Type Severity Reaction Status Date / Time codeine Allergy ALGY-Rash Verified 03/23/24 09:22 hydromorphone Allergy ADR-Itching Verified 03/23/24 09:22 oxycodone Allergy ADR-Itching Verified 03/23/24 09:22 oxytetracycline Allergy ALGY-Rash Verified 03/23/24 09:22 [From Terramycin] tramadol Allergy ADR-Itching Verified 03/23/24 09:22 Review of Systems 2 Const: Denies: fever(s), chills, body aches, fatigue or malaise Eyes: Denies: change in vision or blurry vision Card: Reports: chest pain (none currently) and pre-syncope; Denies: palpitations, irregular heart rhythm, edema, swelling of feet/ankles, lightheadedness, syncope, dyspnea on exertion, orthopnea, leg pain with exertion or acrocyanosis Resp: Denies: dyspnea, productive cough or pain on inspiration GI: Denies: abdominal pain, nausea, vomiting, heartburn or diarrhea : Denies: difficulty urinating or dysuria Musc: Denies: neck pain, back pain, extremity pain, extremity swelling or joint pain Skin/Breast: Denies: rash Neuro: Reports: dizziness (upon standing quickly); Denies: headache(s), numbness in extremities, weakness in extremities, sensory changes, lack of coordination, difficulty walking, frequent falls, vertigo, confusion, behavioral changes, Slurred speech present, difficulty communicating thoughts or seizure-like activity PFSH ED 2 PFSH: Social History Smoking and tobacco/nicotine status: never used tobacco/nicotine Physical Exam 2 Const: COMMON NORMALS: no acute distress, average body habitus, patient oriented x3, no limitations, healthy appearing, alert and well nourished G ENERAL APPEARANCE: cooperative ORIENTATION/CONSCIOUSNESS: Yes awake, Yes oriented to person, Yes oriented to place and Yes oriented to time HENMT: COMMON NORMALS: normocephalic and atraumatic HEAD & SCALP: normal to inspection, normocephalic and atraumatic Neck/C-Spine: COMMON NORMALS: full ROM, no lymphadenopathy, supple and no meningeal signs Chest: COMMONS NORMALS: normal inspection of the chest OTHER: TTP L anterior/lateral chest wall; no rash Resp: COMMON NORMALS: normal respiratory effort and clear to auscultation bilaterally AUSCULTATION: clear to auscultation bilaterally Cardio: COMMON NORMALS: regular rate and regular rhythm RATE: regular rate RHYTHM: regular rhythm GI: COMMON NORMALS: Normal to inspection, nondistended, normoactive bowel sounds present, Soft to palpation, non-tender, No hepatosplenomegaly present and no masses PALPATION: Yes Soft to palpation and Yes No hepatosplenomegaly present : COMMON NORMALS: Yes no CVA tenderness BLADDER/KIDNEY EXAM: Yes no CVA tenderness Back/Pelvis: COMMON NORMALS: no CVA tenderness and thoracic and lumbar spine normal to inspection Extremity: COMMON NORMALS: normal to inspection, capillary refill normal, no clubbing, cyanosis or edema, no calf tenderness and no pedal edema GENERAL: Y es normal exam except as noted Neuro: COMMON NORMALS: patient oriented x3, moves all extremities, no focal motor deficits and no sensory deficits noted SENSORIUM/ORIENTATION: Yes alert, Yes oriented to person, Yes oriented to place and Yes oriented to time MENINGEAL SIGNS: Yes no meningeal signs Skin: COMMON NORMALS: no rashes or lesions noted GENERAL SKIN EXAM: no rashes or lesions noted Course 2 Vital Signs: Vital signs: Vital Signs Temperature 98.2 F 03/29/24 12:42 Pulse Rate 70 03/29/24 15:33 Respiratory Rate 16 03/29/24 15:33 Blood Pressure 137/81 03/29/24 15:33 Pulse Oximetry 95 03/29/24 15:33 Oxygen Delivery Me thod Room Air 03/29/24 15:33 MDM - Syncope Medical Decision Making Patient has not had any active chest pain while here. Vital signs have been stable. Blood work here overall is nonconcerning. His baseline troponin is 22. He has a negative delta. His CXR is unremarkable. Baseline and repeat EKGs are nonischemic. He states he does have a cardiology follow-up on 04/29. Will see if case management can get him a sooner appointment. [facility] Return to ED precautions given. Medical Records I reviewed the patient's medical records. Lab Data I reviewed the patient's lab results. 03/29/24 12:54 03/29/24 12:54 Radiology Impressions Chest X-Ray 03/29/24 12:36 IMPRESSION: No acute pathology or significant interval change. Laboratory Results WBC 6.24 10^3/uL (3.29-11.43) 03/29/24 12:54 RBC 4.71 10^6/uL (3.85-5.65) 03/29/24 12:54 Hgb 13.10 g/dL (11.27-16.99) 03/29/24 12:54 Hct 40.0 % (37-53) 03/29/24 12:54 MCV 84.9 fl (82-101) 03/29/24 12:54 MCH 27.8 pg (27-33) 03/29/24 12:54 MCHC 32.8 g/dL (30-55) 03/29/24 12:54 RDW 14.3 % (12.1-15.1) 03/29/24 12:54 Plt Count 382 10^3/cmm (157-399) 03/29/24 12:54 MPV 10.2 fL (7.4-10.4) 03/29/24 12:54 Neut % (Auto) 44.5 % 03/29/24 12:54 Lymph % (Auto) 41.3 % 03/29/24 12:54 George % (Auto) 12.7 % 03/29/24 12:54 Eos % (Auto) 0.8 % 03/29/24 12:54 Baso % (Auto) 0.5 % 03/29/24 12:54 Neut # (Auto) 2.78 10^3/uL (1.8-7.7) 03/29/24 12:54 Lymph # (Auto) 2.6 10^3/uL (0.8-4.8) 03/29/24 12:54 George # (Auto) 0.8 10^3/uL (0.2-0.9) 03/29/24 12:54 Eos # (Auto) 0.1 10^3/uL (0.0-0.8) 03/29/24 12:54 Baso # (Auto) 0.0 10^3/uL (0.0-0.1) 03/29/24 12:54 Nucleated RBC % (auto) 0 % 03/29/24 12:54 Nucleated RBCs # 0.0 /100WBC 03/29/24 12:54 Sodium 135 mmol/L (136-145) L 03/29/24 12:54 Potassium 4.3 mmol/L (3.5-5.1) 03/29/24 12:54 Chloride 100 mmol/L (98-107) 03/29/24 12:54 Carbon Dioxide 22 mmol/L (22-29) 03/29/24 12:54 Anion Gap 17.3 (5-19) 03/29/24 12:54 BUN 24 mg/dL (8-23) H 03/29/24 12:54 Creatinine 1.2 mg/dL (0.7-1.2) 03/29/24 12:54 GFR Calculation Not Reportable 03/29/24 12:54 Glucose 197 mg/dL (65-115) H 03/29/24 12:54 Calculated Osmolality 290 mOsm/kg (285-295) 03/29/24 12:54 Calcium 9.2 mg/dL (8.5-10.5) 03/29/24 12:54 Total Bilirubin 1.8 mg/dL (0.15-1.2) H 03/29/24 12:54 AST 15 U/L (0-40) 03/29/24 12:54 ALT 12 U/L (0-41) 03/29/24 12:54 Alkaline Phosphatase 93 U/L (40-130) 03/29/24 12:54 Troponin T Baseline 22 ng/L (0-15) H 03/29/24 12:54 Troponin T 120 Minute 17.53 ng/L (0-15) H 03/29/24 15:11 Delta Troponin T -4.47 ABS# (0-10) L 03/29/24 15:11 Total Protein 6.8 g/dL (6.6-8.7) 03/29/24 12:54 Albumin 4.0 g/dL (3.5-5.2) 03/29/24 12:54 Globulin 2.8 g/dL (1.3-4.6) 03/29/24 12:54 All radiology interpretation(s) finalized by discharge Discharge Plan Discharge Patient Disposition: Home Clinical Impression: Orthostatic dizziness Chest pain Qualifiers: Chest pain type: unspecified Qualified Code(s): R07.9 - Chest pain, unspecified Condition: Stable Prescriptions: No Action (DME) [facility] Advance Inf Set43 Infusion Set See Rx Instructions .Route Rx Instructions: As directed (DME) [facility] [place] Advance Inf Set23 Infusion Set See Rx Instructions .Route Qty: 10 1RF Rx Instructions: 9 mm cannula MMT 243A (DME) [facility] [place] 3 mL misc See Rx Instructions .Route Qty: 10 1RF Rx Instructions: MMT 332A (DME) shoulder immobilizer See Rx Instructions .Route .MEDSUPPLY Qty: 1 0RF Rx Instructions: As directed Praluent Pen 75 mg/mL pen injector 75 mg SUBCUT Q14D Qty: 2 2RF pantoprazole [Protonix] 40 mg Tablet,Delayed Release (Dr/Ec) 40 mg PO QAM lisinopril 20 mg Tablet 20 mg PO DAILY nifedipine 30 mg Tablet Extended Release 30 mg PO DAILY tamsulosin 0.4 mg Capsule 0.4 mg PO DAILY cholecalciferol (vitamin D3) [Vitamin D3] 10 mcg (400 unit) Capsule 10 mcg PO DAILY insulin aspart U-100 100 unit/mL (3 mL) Insulin Pen See Rx Instructions .ROUTE .COMPLEX Rx Instructions: inject as directed under the skin subq Discharge Orders: Discharge ED (Routine); Ordered 03/29/24 Ordered By: Farnaz Toney Referrals: Sonja Figueroa FNP [Primary Care Provider] - Activity Restrictions/Additional Instructions: As we discussed, we will try to have case management set you up with a sooner appointment to see cardiology. You need to return to the emergency department for any further episodes of chest pain, shortness of breath, difficulty breathing, or any other concerns you may have. [facility] As we discussed the most likely will require an outpatient stress test/echocardiogram for further evaluation of symptoms. When it comes to changes in positions, please start using the rule of fives . Wait 5 minutes from going from a lying to seated position and then 5 minutes when going from a seated to standing position. This may help cut down on the dizziness that you get when standing too quickly. Coding Level of Care Code ED Passenger Booking Clerk for Narendra Morocho
[2024-03-29 13:02] LABS: Basophils % 0.5 %; Eosinophils # 0.1 10^3/uL (0.0-0.8); Eosinophils % 0.8 %; Lymphocytes # 2.6 10^3/uL (0.8-4.8); Lymphocytes % 41.3 %; Mean Corpuscular HGB Conc 32.8 g/dL (30-55); Mean Corpuscular Hemoglobin 27.8 pg (27-33); Mean Corpuscular Volume 84.9 fl (82-101); Mean Platelet Volume 10.2 fL (7.4-10.4); Monocytes # 0.8 10^3/uL (0.2-0.9); Monocytes % 12.7 %; Neutrophils # 2.78 10^3/uL (1.8-7.7); Neutrophils % 44.5 %; Nucleated Red Blood Cells % 0 %; Platelet Count 382 10^3/cmm (157-399); Red Blood Count 4.71 10^6/uL (3.85-5.65); Red Cell Distribution Width 14.3 % (12.1-15.1); White Blood Count 6.24 10^3/uL (3.29-11.43)
[2024-03-29 13:18] LABS: Alanine Aminotransferase 12 U/L (0-41); Alkaline Phosphatase 93 U/L (40-130); Anion Gap 17.3 (5-19); Aspartate Amino Transferase 15 U/L (0-40); Blood Urea Nitrogen 24 mg/dL (8-23); Calcium 9.2 mg/dL (8.5-10.5); Carbon Dioxide 22 mmol/L (22-29); Chloride 100 mmol/L (98-107); Creatinine Clr Calc Pharmacy 58.7575; Globulin 2.8 g/dL (1.3-4.6); Glucose 197 mg/dL (65-115); Osmolality Calculated 290 mOsm/kg (285-295); Potassium 4.3 mmol/L (3.5-5.1); Sodium 135 mmol/L (136-145); Total Bilirubin 1.8 mg/dL (0.15-1.2); Total Protein 6.8 g/dL (6.6-8.7); Troponin(5th) Baseline 22 ng/L (0-15)
[2024-03-29 14:48] VITALS: BP 170/91; PULSE 67; RESP 18; O2SAT 98
--- NOTE | 2024-03-29 14:59 | ECG_ITS ---
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 Measurements Intervals [place] Rate: 64 P: 79 [place]: 224 QRS: -44 QRSD: 134 T: 78 QT: 410 QTc: 423 Interpretive Statements SINUS RHYTHM WITH FIRST DEGREE AV BLOCK WITH OCCASIONAL SUPRAVENTRICULAR PREMATURE COMPLEXES LEFT AXIS DEVIATION [QRS AXIS < -30] INTRAVENTRICULAR CONDUCTION DELAY [130+ ms QRS DURATION] SEPTAL MYOCARDIAL INFARCTION , PROBABLY OLD [40+ ms Q WAVE IN V1/V2] Compared to ECG 03/29/2024 12:39:19 Left-axis deviation now present Intraventricular conduction delay now present Left anterior fascicular block no longer present Left ventricular hypertrophy no longer present ST (T wave) deviation no longer present Myocardial infarct finding still present Electronically Signed On 03-29-2024 15:11:23 INVASIVE MANAGER by Prabhakar Kim M.D. [id number]
[2024-03-29 15:33] VITALS: BP 137/81; PULSE 70; RESP 16; O2SAT 95
[2024-03-29 15:57] LABS: Troponin 5 2HR 17.53 ng/L (0-15); Troponin 5 2HR Delta -4.47 ABS# (0-10)
[2024-03-29 16:33] VITALS: BP 143/93; PULSE 68; RESP 16; O2SAT 97
--- NOTE | 2024-03-30 08:13 | DCPLANNER ---
Message sent to Cardiology
== END 2024-03-29 16:30 | disposition home or self-care (01) ==
PROVIDERS: Emergency Provider Physician Assistant; PCP Nurse Practitioner
DX: R42 Dizziness and giddiness (principal); R07.9 Chest pain, unspecified; Z79.4 Long term (current) use of insulin; E78.5 Hyperlipidemia, unspecified; E11.9 Type 2 diabetes mellitus without complications; I25.10 Atherosclerotic heart disease of native coronary artery without angina pectoris
CPT/HCPCS: 36415; 71045; 80053; 84484; 85025; 93005; 99285

== ENCOUNTER 2024-03-31 15:08 | Emergency (ER) | payer OTHER, SELFPAY ==
--- NOTE | 2024-03-31 15:13 | ECG_ITS ---
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 Measurements Intervals [place] Rate: 76 P: 78 [place]: 219 QRS: -49 QRSD: 101 T: 81 QT: 385 QTc: 435 Interpretive Statements SINUS RHYTHM WITH FIRST DEGREE AV BLOCK LEFT AXIS DEVIATION [QRS AXIS < -30] INCOMPLETE RIGHT BUNDLE BRANCH BLOCK [90+ ms QRS DURATION, TERMINAL R IN V1/V2, 40+ ms S IN I/aVL/V4/V5/V6] PROBABLE SEPTAL MYOCARDIAL INFARCTION , PROBABLY OLD [35 ms Q WAVE IN V1/V2] Compared to ECG 03/29/2024 14:59:03 Incomplete right bundle-branch block now present Intraventricular conduction delay no longer present Myocardial infarct finding still present Electronically Signed On 03-31-2024 23:58:37 CASE BRIEFER by Lynn Cline M.D. [id number]
[2024-03-31 15:19] VITALS: BP 177/94; PULSE 75; RESP 20; O2SAT 98
--- NOTE | 2024-03-31 15:20 | W.ED.GENADLT ---
HPI - General Adult General: Chief complaint: Chest Pain Stated complaint: rapid, cp/sob Time Seen by Provider: 03/31/24 15:12 History of Present Illness: Patient was brought to the ER from a rapid response from medical office building where he was following up with a job hand for a previous ER visit where he had presyncopal episode. Patient is an insulin-dependent diabetic with coronary artery disease with previous stent. Today per record it appears patient was short of breath with chest pain. When he got to the ER he does not know why he is here he is not having any complaints per him and he is a very poor historian with no help on his symptomatology. Related Data Home Medications Medication Instructions Recorded Confirmed pantoprazole 40 mg tablet,delayed 40 mg PO QAM 12/11/23 03/31/24 release (Protonix) infusion set for insulin pump 12/21/23 03/31/24 ([facility] Infusion Set 43 ) cholecalciferol (vitamin D3) 10 10 mcg PO DAILY 03/29/24 03/31/24 mcg (400 unit) capsule (Vitamin D3) insulin aspart U-100 100 unit/mL See Rx Instructions .Route .COMPLEX 03/29/24 03/31/24 (3 mL) subcutaneous pen lisinopril 20 mg tablet 20 mg PO DAILY 03/29/24 03/31/24 tamsulosin 0.4 mg capsule 0.4 mg PO DAILY 03/29/24 03/31/24 Previous Rx's Medication Instructions Recorded shoulder immobilizer #1 ea 10/28/23 infusion set for insulin pump #10 ea 12/21/23 ([facility] Advance Infusion Set 23 ) insulin pump syringe 3 mL #10 ea 12/21/23 ([facility] [place]) alirocumab 75 mg/mL subcutaneous 75 mg SUBCUT Q14D #2 mL 12/23/23 pen injector (Praluent Pen) Allergies Allergy/AdvReac Type Severity Reaction Status Date / Time codeine Allergy ALGY-Rash Verified 03/31/24 14:47 hydromorphone Allergy ADR-Itching Verified 03/31/24 14:47 oxycodone Allergy ADR-Itching Verified 03/31/24 14:47 oxytetracycline Allergy ALGY-Rash Verified 03/31/24 14:47 [From Terramycin] tramadol Allergy ADR-Itching Verified 03/31/24 14:47 Review of Systems General: Reports: 10 or more systems reviewed and unremarkable except in HPI and below PFSH ED PFSH: Social History Smoking and tobacco/nicotine status: never used tobacco/nicotine Physical Exam Const: COMMON NORMALS: no acute distress, average body habitus, patient oriented x3, no limitations, healthy appearing, alert and well nourished HENMT: COMMON NORMALS: normocephalic, atraumatic, hearing grossly normal bilaterally, external ears normal, Normal external nose present and moist oral mucous membranes HEAD & SCALP: normocephalic and atraumatic NOSE: Normal external nose present EXTERNAL EAR: Yes external ears normal Neck/C-Spine: COMMON NORMALS: no JVD Chest: COMMONS NORMALS: normal inspection of the chest and normal palpation of entire chest wall Resp: COMMON NORMALS: normal respiratory effort, No retractions, No use of accessory muscles and clear to auscultation bilaterally AUSCULTATION: clear to auscultation bilaterally Cardio: COMMON NORMALS: no JVD, regular rate, regular rhythm, S1 normal heart sound present, S2 normal heart sound present, No gallops present (Cardio), No clicks present (Cardio), No murmurs present (Cardio) and No rub (Cardio) RATE: regular rate RHYTHM: regular rhythm HEART SOUNDS: S1 normal heart sound present and S2 normal heart sound present GI: COMMON NORMALS: Normal to inspection, nondistended, normoactive bowel sounds present, Soft to palpation, non-tender, No hepatosplenomegaly present and no masses PALPATION: Yes Soft to palpation and Yes No hepatosplenomegaly present Neuro: COMMON NORMALS: patient oriented x3 SENSORIUM/ORIENTATION: Yes alert Course Vital Signs: Vital signs: Vital Signs Pulse Rate 70 03/31/24 18:05 Respiratory Rate 14 03/31/24 18:05 Blood Pressure 162/90 03/31/24 18:05 Pulse Oximetry 98 03/31/24 18:05 Oxygen Delivery Me thod Room Air 03/31/24 15:19 MDM - General Adult Medical Decision Making Lab work was obtained which was essentially unremarkable as well as EKG and chest x-ray. Patient be discharged home. Medical Records I reviewed the patient's medical records. Lab Data I reviewed the patient's lab results. 03/31/24 15:20 03/31/24 15:20 Radiology Impressions Chest X-Ray 03/31/24 15:22 IMPRESSION: No acute findings. Laboratory Results WBC 7.12 10^3/uL (3.29-11.43) 03/31/24 15:20 RBC 4.73 10^6/uL (3.85-5.65) 03/31/24 15:20 Hgb 13.10 g/dL (11.27-16.99) 03/31/24 15:20 Hct 39.7 % (37-53) 03/31/24 15:20 MCV 83.9 fl (82-101) 03/31/24 15:20 MCH 27.7 pg (27-33) 03/31/24 15:20 MCHC 33.0 g/dL (30-55) 03/31/24 15:20 RDW 14.1 % (12.1-15.1) 03/31/24 15:20 Plt Count 394 10^3/cmm (157-399) 03/31/24 15:20 MPV 10.7 fL (7.4-10.4) H 03/31/24 15:20 Neut % (Auto) 35.5 % 03/31/24 15:20 Lymph % (Auto) 49.9 % 03/31/24 15:20 [place] % (Auto) 13.1 % 03/31/24 15:20 Eos % (Auto) 1.0 % 03/31/24 15:20 Baso % (Auto) 0.4 % 03/31/24 15:20 Neut # (Auto) 2.53 10^3/uL (1.8-7.7) 03/31/24 15:20 Lymph # (Auto) 3.6 10^3/uL (0.8-4.8) 03/31/24 15:20 [place] # (Auto) 0.9 10^3/uL (0.2-0.9) 03/31/24 15:20 Eos # (Auto) 0.1 10^3/uL (0.0-0.8) 03/31/24 15:20 Baso # (Auto) 0.0 10^3/uL (0.0-0.1) 03/31/24 15:20 Nucleated RBC % (auto) 0 % 03/31/24 15:20 Nucleated RBCs # 0.0 /100WBC 03/31/24 15:20 Sodium 135 mmol/L (136-145) L 03/31/24 15:20 Potassium 4.2 mmol/L (3.5-5.1) 03/31/24 15:20 Chloride 103 mmol/L (98-107) 03/31/24 15:20 Carbon Dioxide 20 mmol/L (22-29) L 03/31/24 15:20 Anion Gap 16.2 (5-19) 03/31/24 15:20 BUN 26 mg/dL (8-23) H 03/31/24 15:20 Creatinine 1.2 mg/dL (0.7-1.2) 03/31/24 15:20 GFR Calculation Not Reportable 03/31/24 15:20 Glucose 176 mg/dL (65-115) H 03/31/24 15:20 Calculated Osmolality 289 mOsm/kg (285-295) 03/31/24 15:20 Calcium 9.4 mg/dL (8.5-10.5) 03/31/24 15:20 Magnesium 1.8 mg/dL (1.7-2.3) 03/31/24 15:20 Total Bilirubin 1.2 mg/dL (0.15-1.2) 03/31/24 15:20 AST 16 U/L (0-40) 03/31/24 15:20 ALT 12 U/L (0-41) 03/31/24 15:20 Alkaline Phosphatase 89 U/L (40-130) 03/31/24 15:20 Troponin T Baseline 19 ng/L (0-15) H 03/31/24 15:20 Troponin T 120 Minute 16.13 ng/L (0-15) H 03/31/24 17:55 Delta Troponin T -2.87 ABS# (0-10) L 03/31/24 17:55 Total Protein 7.1 g/dL (6.6-8.7) 03/31/24 15:20 Albumin 4.1 g/dL (3.5-5.2) 03/31/24 15:20 Globulin 3.0 g/dL (1.3-4.6) 03/31/24 15:20 All radiology interpretation(s) finalized by discharge Discharge Plan Discharge Patient Disposition: Home Clinical Impression: Atypical chest pain, Breath shortness Condition: Stable Prescriptions: No Action (DME) [facility] Advance Inf Set43 Infusion Set See Rx Instructions .Route Rx Instructions: As directed (DME) [facility] [place] Advance Inf Set23 Infusion Set See Rx Instructions .Route Qty: 10 1RF Rx Instructions: 9 mm cannula MMT 243A (DME) [facility] [place] 3 mL misc See Rx Instructions .Route Qty: 10 1RF Rx Instructions: MMT 332A (DME) shoulder immobilizer See Rx Instructions .Route .MEDSUPPLY Qty: 1 0RF Rx Instructions: As directed Praluent Pen 75 mg/mL pen injector 75 mg SUBCUT Q14D Qty: 2 2RF pantoprazole [Protonix] 40 mg Tablet,Delayed Release (Dr/Ec) 40 mg PO QAM lisinopril 20 mg Tablet 20 mg PO DAILY tamsulosin 0.4 mg Capsule 0.4 mg PO DAILY cholecalciferol (vitamin D3) [Vitamin D3] 10 mcg (400 unit) Capsule 10 mcg PO DAILY insulin aspart U-100 100 unit/mL (3 mL) Insulin Pen See Rx Instructions .ROUTE .COMPLEX Rx Instructions: inject as directed under the skin via insulin pump for diabetes, discard any vial 28 days after opening Discharge Orders: Discharge ED (Routine); Ordered 03/31/24 Ordered By: Todd Moreno Referrals: Sonja Figueroa FNP [Primary Care Provider] - 1 week Patient Instructions: Chest Pain (ED), Shortness of Breath (ED) Activity Restrictions/Additional Instructions: Your evaluation ER included lab work, chest x-ray, EKGs did not show any acute cause of your symptomatology. Please follow-up with your family practice physician and job hand for further evaluation treatment. Coding Level of Care Code ED Professor Of Literature for Narendra Morocho
[2024-03-31 15:22] VITALS: BP 168/93; PULSE 76; O2SAT 95
--- NOTE | 2024-03-31 15:22 | XRR_ITS ---
PROCEDURE INFORMATION: Exam: XR Chest Exam date and time: 03/31/2024 3:57 PM Age: 83 years old Clinical indication: Pain; Chest pressure; Additional info: Chest pain shortness of breath TECHNIQUE: Imaging protocol: Radiologic exam of the chest. Views: 1 view. COMPARISON: CR XR chest 1V portable [id number] 03/29/2024 1:19 PM FINDINGS: Lungs: Unremarkable. No consolidation or mass. Pleural spaces: Unremarkable. No pleural effusion. No pneumothorax. Heart/Mediastinum: Unremarkable. No cardiomegaly. Bones/joints: A left shoulder prosthesis is well seated and well aligned. XR/XR chest 1V portable [id number] IMPRESSION: No acute findings.
--- NOTE | 2024-03-31 15:24 | PC.PHAR ---
patient was seen at er 2 days ago med [facility], wasn't discharged with any meds on 03/29 but with follow up with pcp med rec completed off that
[2024-03-31 15:46] LABS: Basophils % 0.4 %; Eosinophils # 0.1 10^3/uL (0.0-0.8); Hematocrit 39.7 % (37-53); Lymphocytes # 3.6 10^3/uL (0.8-4.8); Lymphocytes % 49.9 %; Mean Corpuscular Hemoglobin 27.7 pg (27-33); Mean Corpuscular Volume 83.9 fl (82-101); Mean Platelet Volume 10.7 fL (7.4-10.4); Monocytes # 0.9 10^3/uL (0.2-0.9); Monocytes % 13.1 %; Neutrophils # 2.53 10^3/uL (1.8-7.7); Neutrophils % 35.5 %; Nucleated Red Blood Cells % 0 %; Platelet Count 394 10^3/cmm (157-399); Red Blood Count 4.73 10^6/uL (3.85-5.65); Red Cell Distribution Width 14.1 % (12.1-15.1); White Blood Count 7.12 10^3/uL (3.29-11.43)
[2024-03-31 15:59] LABS: Troponin(5th) Baseline 19 ng/L (0-15)
[2024-03-31 16:00] LABS: Alanine Aminotransferase 12 U/L (0-41); Albumin Level 4.1 g/dL (3.5-5.2); Alkaline Phosphatase 89 U/L (40-130); Aspartate Amino Transferase 16 U/L (0-40); Blood Urea Nitrogen 26 mg/dL (8-23); Calcium 9.4 mg/dL (8.5-10.5); Carbon Dioxide 20 mmol/L (22-29); Chloride 103 mmol/L (98-107); Glucose 176 mg/dL (65-115); Magnesium 1.8 mg/dL (1.7-2.3); Osmolality Calculated 289 mOsm/kg (285-295); Sodium 135 mmol/L (136-145); Total Bilirubin 1.2 mg/dL (0.15-1.2); Total Protein 7.1 g/dL (6.6-8.7)
[2024-03-31 16:12] LABS: Anion Gap 16.2 (5-19); Potassium 4.2 mmol/L (3.5-5.1)
--- NOTE | 2024-03-31 16:51 | ECG_ITS ---
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 Measurements Intervals [place] Rate: 61 P: 76 [place]: 253 QRS: -52 QRSD: 114 T: 83 QT: 421 QTc: 427 Interpretive Statements SINUS RHYTHM WITH FIRST DEGREE AV BLOCK LEFT ANTERIOR FASCICULAR BLOCK [QRS AXIS <= -45, QR IN I, RS IN II] SEPTAL MYOCARDIAL INFARCTION , PROBABLY OLD [40+ ms Q WAVE IN V1/V2] Compared to ECG 03/31/2024 15:13:02 Left anterior fascicular block now present Left-axis deviation no longer present Incomplete right bundle-branch block no longer present Myocardial infarct finding still present Electronically Signed On 04-01-2024 00:03:53 HAM PUMPER by Lynn Cline M.D. [id number]
[2024-03-31 16:52] VITALS: BP 182/102; PULSE 73; O2SAT 95
[2024-03-31 18:05] VITALS: BP 162/90; PULSE 70; RESP 14; O2SAT 98
[2024-03-31 18:34] LABS: Troponin 5 2HR 16.13 ng/L (0-15)
[2024-03-31 18:35] LABS: Troponin 5 2HR Delta -2.87 ABS# (0-10)
[2024-03-31 18:43] VITALS: BP 170/101; PULSE 77; RESP 15; O2SAT 100
--- NOTE | 2024-03-31 18:44 | PC.NURSE ---
pt states L sided chest pain, denies any relief
[2024-03-31 18:55] VITALS: BP 170/101; PULSE 72; O2SAT 95
== END 2024-03-31 18:56 | disposition home or self-care (01) ==
PROVIDERS: Emergency Provider Emergency Medicine; PCP Nurse Practitioner
DX: R07.89 Other chest pain (principal); R06.02 Shortness of breath; Z79.4 Long term (current) use of insulin; E11.9 Type 2 diabetes mellitus without complications; I25.10 Atherosclerotic heart disease of native coronary artery without angina pectoris
CPT/HCPCS: 36415; 71045; 80053; 83735; 84484; 85025; 93005; 99285

== ENCOUNTER 2024-04-29 10:34 | Observation (INO) | payer OTHER, SELFPAY ==
--- NOTE | 2024-04-29 10:46 | ECG_ITS ---
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: : 1940 Requested By: Farnaz Toney Order Number: [id number] Reading MD: LU TREJO Measurements Intervals [place] Rate: 69 P: 76 [place]: 256 QRS: -46 QRSD: 106 T: 75 QT: 387 QTc: 417 Interpretive Statements SINUS RHYTHM WITH FIRST DEGREE AV BLOCK LEFT ANTERIOR FASCICULAR BLOCK [QRS AXIS <= -45, QR IN I, RS IN II] SEPTAL MYOCARDIAL INFARCTION , PROBABLY OLD [40+ ms Q WAVE IN V1/V2] Compared to ECG 03/31/2024 16:51:32 No significant changes Electronically Signed On 04-29-2024 23:21:59 PROFESSOR OF SPORT MANAGEMENT by LU TREJO [id number]
--- NOTE | 2024-04-29 10:46 | XR_ITS ---
WS: [id number] XR chest 1V portable [id number] REASON FOR EXAM: chest pain FINDINGS: Chest is stable compared to 03/21/2024. Moderate tortuosity and ectasia of the thoracic aorta. Normal heart size. 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 No acute pulmonary parenchymal or pleural abnormality. Moderate degenerative spondylosis in the thoracic spine. Total reversed left shoulder arthroplasty. XR/XR chest 1V portable [id number] IMPRESSION: Stable chest without acute abnormality.
[2024-04-29 10:48] VITALS: BP 123/76; PULSE 77; RESP 17; TEMP 36.7; O2SAT 98; BMI 23.7
[2024-04-29 11:09] LABS: Basophils % 0.6 %; Eosinophils # 0.1 10^3/uL (0.0-0.8); Eosinophils % 2.3 %; Hematocrit 39.6 % (37-53); Lymphocytes # 2.4 10^3/uL (0.8-4.8); Lymphocytes % 45.5 %; Mean Corpuscular HGB Conc 32.6 g/dL (30-55); Mean Corpuscular Hemoglobin 27.6 pg (27-33); Mean Corpuscular Volume 84.8 fl (82-101); Mean Platelet Volume 10.1 fL (7.4-10.4); Monocytes # 0.8 10^3/uL (0.2-0.9); Monocytes % 14.3 %; Neutrophils # 1.94 10^3/uL (1.8-7.7); Neutrophils % 37.1 %; Nucleated Red Blood Cells % 0 %; Platelet Count 373 10^3/cmm (157-399); Red Blood Count 4.67 10^6/uL (3.85-5.65); Red Cell Distribution Width 14.5 % (12.1-15.1); White Blood Count 5.23 10^3/uL (3.29-11.43)
[2024-04-29 11:29] LABS: Troponin(5th) Baseline 17 ng/L (0-15)
[2024-04-29 11:45] LABS: Alanine Aminotransferase 13 U/L (0-41); Alkaline Phosphatase 95 U/L (40-130); Anion Gap 16.9 (5-19); Aspartate Amino Transferase 16 U/L (0-40); Blood Urea Nitrogen 23 mg/dL (8-23); Calcium 9.4 mg/dL (8.5-10.5); Carbon Dioxide 24 mmol/L (22-29); Chloride 96 mmol/L (98-107); Creatinine Clr Calc Pharmacy 53.6949; Glucose 324 mg/dL (65-115); NT Pro B Type Natriuretic Pept 105 pg/mL (0-450); Osmolality Calculated 290 mOsm/kg (285-295); Potassium 4.9 mmol/L (3.5-5.1); Sodium 132 mmol/L (136-145)
--- NOTE | 2024-04-29 11:54 | ED_ITS ---
HPI - Chest Pain 2 General: Chief Complaint: Chest Pain Stated Complaint: chest pain Time Seen by Provider: 04/29/24 11:44 History of Present Illness: 83-year-old man with a history of hypert ension, diabetes, BPH and coronary artery disease who presents emergency room from cardiology clinic with chest pain/unstable angina. This been going on for couple of days now. He was sent here to have lab drawn and to be admitted for cardiac catheterization tomorrow. No cough. No altered mental status. No abdominal pain. No nausea or vomiting Related Data Home Medications Medication Instructions Recorded Confirmed pantoprazole 40 mg tablet,delayed 40 mg PO QAM 12/11/23 04/29/24 release (Protonix) infusion set for insulin pump 12/21/23 04/29/24 ([facility] [place] Advance Infusion Set 43 ) cholecalciferol (vitamin D3) 10 10 mcg PO DAILY 03/29/24 04/29/24 mcg (400 unit) capsule (Vitamin D3) insulin aspart U-100 100 unit/mL See Rx Instructions .Route .COMPLEX 03/29/24 04/29/24 (3 mL) subcutaneous pen lisinopril 20 mg tablet 20 mg PO DAILY 03/29/24 04/29/24 tamsulosin 0.4 mg capsule 0.4 mg PO DAILY 03/29/24 04/29/24 Previous Rx's Medication Instructions Recorded shoulder immobilizer #1 ea 10/28/23 infusion set for insulin pump #10 ea 12/21/23 ([facility] [place] Advance Infusion Set 23 ) insulin pump syringe 3 mL #10 ea 12/21/23 ([facility] [place]) alirocumab 75 mg/mL subcutaneous 75 mg SUBCUT Q14D #2 mL 12/23/23 pen injector (Praluent Pen) Allergies Allergy/AdvReac Type Severity Reaction Status Date / Time codeine Allergy ALGY-Rash Verified 03/31/24 14:47 hydromorphone Allergy ADR-Itching Verified 03/31/24 14:47 oxycodone Allergy ADR-Itching Verified 03/31/24 14:47 oxytetracycline Allergy ALGY-Rash Verified 03/31/24 14:47 [From Terramycin] tramadol Allergy ADR-Itching Verified 03/31/24 14:47 Review of Systems 2 Narrative: Constitutional symptoms: Negative except as documented in HPI. Skin symptoms: Negative except as documented in HPI. Eye symptoms: Negative except as documented in HPI. ENMT symptoms: Negative except as documented in HPI. Respiratory symptoms: Negative except as documented in HPI. Cardiovascular symptoms: Negative except as documented in HPI. Gastrointestinal symptoms: Negative except as documented in HPI. Genitourinary symptoms: Negative except as documented in HPI. Musculoskeletal symptoms: Negative except as documented in HPI. Neurologic symptoms: Negative except as documented in HPI. Psychiatric symptoms: Negative except as documented in HPI. Endocrine symptoms: Negative except as documented in HPI. PFSH ED 2 PFSH: Medical History (Updated 04/29/24 @ 12:18 by Kimberly Franco MD) CAD (coronary artery disease) Social History Smoking and tobacco/nicotine status: former use of tobacco/nicotine Physical Exam 2 Narrative: EXAM NARRATIVE: General: Alert, no acute distress. Skin: Warm, dry. Head: Normocephalic, atraumatic. Neck: Supple, trachea midline. Eye: Extraocular movements are intact. Ears, nose, mouth and throat: mucosa moist. Cardiovascular: Regular, Normal peripheral perfusion. Respiratory: Lungs are clear to auscultation, respirations are non-labored, breath sounds are equal, Symmetrical chest wall expansion. Gastrointestinal: Soft, Nontender, Non distended Musculoskeletal: Normal ROM, no deformity. Neurological: Alert and oriented, No focal neurological deficit observed. Psychiatric: Cooperative, appropriate mood & affect. Course 2 Vital Signs: Vital signs: Vital Signs Temperature 98.0 F 04/29/24 10:48 Pulse Rate 77 04/29/24 10:48 Respiratory Rate 17 04/29/24 10:48 Blood Pressure 123/76 04/29/24 10:48 Pulse Oximetry 98 04/29/24 10:48 Oxygen Delivery Me thod Room Air 04/29/24 10:48 MDM - Chest Pain Medical Decision Making Differential diagnosis for patient with chest pain includes but is not limited to and based on the above HPI, review of systems and physical exam: Pneumonia. unstable angina. angina. Acute coronary syndrome / [place]. Pulmonary embolism. Costochondritis / musculoskeletal. Pleurisy. Pericarditis. Esophageal spasm. Pancreatis. Cholecystitis. Orders placed to evaluate differential diagnosis based on the above differential, HPI and physical exam EKG: Time 1042. Rate 69. Left anterior fascicular block. Normal sinus rhythm, nonspecific ST-T changes, no ectopy, This was reviewed and interpreted by myself the ER physician at 1047 Chest x-ray: No acute process. No infiltrate. No pneumothorax. This was reviewed and interpreted by myself the emergency room physician. I also reviewed the radiology report. Lab Review: Laboratory results were reviewed and interpreted by myself the emergency room physician. No leukocytosis. No anemia. Stable mild chronic kidney disease with a BUN/creatinine of 23 and 1.3. Initial troponin is at his baseline at 17. I reviewed the patient's medical record. Reexamination: Patient remained stable. No increased work of breathing. No altered mental status. No focal motor deficits. Currently chest pain-free Consultation: I spoke with Dr. Contreras who is on-call for the hospitalist service who agrees to admission. Consultation: Cardiology. Dr. Chadwick was spoken to and had requested that the patient be worked up and admitted for cardiac catheterization Assessment and plan: Unstable angina Coronary artery disease -I discussed the patient with the hospitalist on-call who is admitting the patient. - Discussed findings and plan with patient. Answered any questions. - All laboratory values were reviewed and interpreted personally by myself, the ER physician - All imaging was reviewed and interpreted personally by myself, the ER physician. - Evaluation and treatment of this problem were appropriate in the emergency setting Lab Data 04/29/24 11:02 04/29/24 11:02 Radiology Impressions Chest X-Ray 04/29/24 10:46 IMPRESSION: Stable chest without acute abnormality. Laboratory Results WBC 5.23 10^3/uL (3.29-11.43) 04/29/24 11:02 RBC 4.67 10^6/uL (3.85-5.65) 04/29/24 11:02 Hgb 12.90 g/dL (11.27-16.99) 04/29/24 11:02 Hct 39.6 % (37-53) 04/29/24 11:02 MCV 84.8 fl (82-101) 04/29/24 11:02 MCH 27.6 pg (27-33) 04/29/24 11:02 MCHC 32.6 g/dL (30-55) 04/29/24 11:02 RDW 14.5 % (12.1-15.1) 04/29/24 11:02 Plt Count 373 10^3/cmm (157-399) 04/29/24 11:02 MPV 10.1 fL (7.4-10.4) 04/29/24 11:02 Neut % (Auto) 37.1 % 04/29/24 11:02 Lymph % (Auto) 45.5 % 04/29/24 11:02 Harris % (Auto) 14.3 % 04/29/24 11:02 Eos % (Auto) 2.3 % 04/29/24 11:02 Baso % (Auto) 0.6 % 04/29/24 11:02 Neut # (Auto) 1.94 10^3/uL (1.8-7.7) 04/29/24 11:02 Lymph # (Auto) 2.4 10^3/uL (0.8-4.8) 04/29/24 11:02 Harris # (Auto) 0.8 10^3/uL (0.2-0.9) 04/29/24 11:02 Eos # (Auto) 0.1 10^3/uL (0.0-0.8) 04/29/24 11:02 Baso # (Auto) 0.0 10^3/uL (0.0-0.1) 04/29/24 11:02 Nucleated RBC % (auto) 0 % 04/29/24 11:02 Nucleated RBCs # 0.0 /100WBC 04/29/24 11:02 Sodium 132 mmol/L (136-145) L 04/29/24 11:02 Potassium 4.9 mmol/L (3.5-5.1) 04/29/24 11:02 Chloride 96 mmol/L (98-107) L 04/29/24 11:02 Carbon Dioxide 24 mmol/L (22-29) 04/29/24 11:02 Anion Gap 16.9 (5-19) 04/29/24 11:02 BUN 23 mg/dL (8-23) 04/29/24 11:02 Creatinine 1.3 mg/dL (0.7-1.2) H 04/29/24 11:02 GFR Calculation Not Reportable 04/29/24 11:02 Glucose 324 mg/dL (65-115) H 04/29/24 11:02 Calculated Osmolality 290 mOsm/kg (285-295) 04/29/24 11:02 Calcium 9.4 mg/dL (8.5-10.5) 04/29/24 11:02 Total Bilirubin 1.0 mg/dL (0.15-1.2) 04/29/24 11:02 AST 16 U/L (0-40) 04/29/24 11:02 ALT 13 U/L (0-41) 04/29/24 11:02 Alkaline Phosphatase 95 U/L (40-130) 04/29/24 11:02 Troponin T Baseline 17 ng/L (0-15) H 04/29/24 11:02 NT-Pro-B Natriuret Pep 105 pg/mL (0-450) 04/29/24 11:02 Total Protein 7.0 g/dL (6.6-8.7) 04/29/24 11:02 Albumin 4.0 g/dL (3.5-5.2) 04/29/24 11:02 Globulin 3.0 g/dL (1.3-4.6) 04/29/24 11:02 All radiology interpretation(s) finalized by discharge Discharge Plan Discharge Patient Disposition: Placed in Observation Admit Provider: Dheeraj Contreras Clinical Impression: Unstable angina, Coronary artery disease Coding Level of Care Code ED Dramatic Critic for Narendra Morocho
[2024-04-29 12:21] VITALS: BP 121/68; PULSE 76; RESP 17; O2SAT 97
--- NOTE | 2024-04-29 12:46 | ECG_ITS ---
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1940 Requested By: Farnaz Toney Order Number: [id number] Reading MD: LU TREJO Measurements Intervals Wallace Rate: 64 P: 83 [place]: 252 QRS: -48 QRSD: 114 T: 76 QT: 416 QTc: 430 Interpretive Statements SINUS RHYTHM WITH FIRST DEGREE AV BLOCK LEFT ANTERIOR FASCICULAR BLOCK [QRS AXIS <= -45, QR IN I, RS IN II] SEPTAL MYOCARDIAL INFARCTION , PROBABLY OLD [40+ ms Q WAVE IN V1/V2] Compared to ECG 04/29/2024 10:42:40 No significant changes Electronically Signed On 04-29-2024 23:32:22 AUDIO PRODUCTION MANAGER by LU TREJO [id number]
[2024-04-29 12:50] LABS: Glucose Point of Care 308 mg/dL (70-110)
[2024-04-29 12:53] VITALS: BMI 23.7
[2024-04-29 13:06] VITALS: BP 137/83; PULSE 84; RESP 14; TEMP 36.6
--- NOTE | 2024-04-29 13:07 | P.HP_ITS ---
Providers/Chief Complaint 2 Admitting Physician: Dheeraj Contreras Primary Care Provider: VERONICA Herrera Chief Complaint: chest pain History of Present Illness Pleasant 83-year-old gentleman, hard of hearing with hearing aids, with history of CAD, prior reported 1 angiogram in the past, with history of diabetes, HTN, BPH, with history of congestive heart failure his grandmother and aunt, reports had chest pain yesterday where he felt he may have , came in for evaluation to cardiology clinic today still with persistent chest pressure on the left side, was referred to the emergency room. We were called for admission due to unstable angina. He is still having some mild pressure-like sensation left side of his chest. Denies recent fevers, chills, cough, denies any hemoptysis. Denies any GI symptoms. Has not been short of breath. Denies any unilateral swelling. Review of Systems 2 Const: Denies: fever(s), chills, body aches or malaise ENMT: Denies: throat pain Card: Reports: chest pain; Denies: edema, pre-syncope or dyspnea on exertion Resp: Denies: dyspnea, productive cough, change in phlegm color or hemoptysis GI: Denies: abdominal pain, nausea, vomiting, diarrhea, constipation, hematochezia or melena : Denies: flank pain, difficulty urinating, urinary frequency or hematuria Musc: Denies: back pain, joint swelling or joint redness Skin/Breast: Denies: rash or new lesions Medications/Allergies Home Medications Medication Instructions Recorded Confirmed Last Taken Type shoulder immobilizer #1 ea 10/28/23 04/29/24 Unknown Rx pantoprazole 40 mg tablet,delayed 40 mg PO QAM 12/11/23 04/29/24 04/29/24 07:00 History release (Protonix) infusion set for insulin pump #10 ea 12/21/23 04/29/24 Unknown Rx ([facility] [place] Advance Infusion Set 23 ) infusion set for insulin pump 12/21/23 04/29/24 Unknown History ([facility] [place] Advance Infusion Set 43 ) insulin pump syringe 3 mL #10 ea 12/21/23 04/29/24 Unknown Rx ([facility] [place]) alirocumab 75 mg/mL subcutaneous 75 mg SUBCUT Q14D #2 mL 12/23/23 04/29/24 Unknown Rx pen injector (Praluent Pen) cholecalciferol (vitamin D3) 10 10 mcg PO DAILY 03/29/24 04/29/24 04/29/24 07:00 History mcg (400 unit) capsule (Vitamin D3) insulin aspart U-100 100 unit/mL See Rx Instructions .Route .COMPLEX 03/29/24 04/29/24 04/29/24 History (3 mL) subcutaneous pen lisinopril 20 mg tablet 20 mg PO DAILY 03/29/24 04/29/24 04/29/24 History tamsulosin 0.4 mg capsule 0.4 mg PO DAILY 03/29/24 04/29/24 04/28/24 20:00 History Allergies Allergy/AdvReac Type Severity Reaction Status Date / Time lidocaine Allergy Unknown Unknown Unverified 04/29/24 14:17 codeine Allergy ALGY-Rash Verified 03/31/24 14:47 hydromorphone Allergy ADR-Itching Verified 03/31/24 14:47 oxycodone Allergy ADR-Itching Verified 03/31/24 14:47 oxytetracycline Allergy ALGY-Rash Verified 03/31/24 14:47 [From Terramycin] tramadol Allergy ADR-Itching Verified 03/31/24 14:47 PFSH Acute 2 PFSH: Medical History CAD (coronary artery disease) Surgical History (Updated 04/29/24 @ 14:18 by Dheeraj Contreras MD) H/O shoulder replacement Social History Smoking and tobacco/nicotine status: former use of tobacco/nicotine Vitals/I&O/Wt Last Vital Signs Temp 97.8 F 04/29/24 13:06 Pulse 84 04/29/24 13:06 Resp 14 04/29/24 13:06 BP 137/83 04/29/24 13:06 Pulse Ox 97 04/29/24 12:21 O2 Del Method Room Air 04/29/24 10:48 Weight last 48 hrs Weight 90.718 kg Physical Exam 2 Const: COMMON NORMALS: patient oriented x3 and alert GENERAL APPEARANCE: c ooperative ORIENTATION/CONSCIOUSNESS: Yes awake HENMT: COMMON NORMALS: oropharynx normal Neck/C-Spine: COMMON NORMALS: no JVD Chest: OTHER: Some pain reproducible in the left side chest with palpation. Resp: COMMON NORMALS: normal respiratory effort and clear to auscultation bilaterally AUSCULTATION: clear to auscultation bilaterally Cardio: COMMON NORMALS: no JVD, regular rhythm, S1 normal heart sound present, S2 normal heart sound present and No murmurs present (Cardio) RHYTHM: regular rhythm HEART SOUNDS: S1 normal heart sound present and S2 normal heart sound present GI: COMMON NORMALS: Normal to inspection, nondistended, normoactive bowel sounds present, Soft to palpation and non-tender PALPATION: Yes Soft to palpation Extremity: COMMON NORMALS: no joint enlargement and no pedal edema Neuro: COMMON NORMALS: patient oriented x3 and moves all extremities S ENSORIUM/ORIENTATION: Yes alert Skin: COMMON NORMALS: no rashes or lesions noted GENERAL SKIN EXAM: no rashes or lesions noted Data 04/29/24 11:02 04/29/24 11:02 A&P Assessment and plan (1) Unstable angina: Unstable angina with severe chest pain yesterday, persistent chest pain/pressure on the left side today. Monitor on telemetry with risk of arrhythmia. Complete troponin EKG series. Requested D-dimer, 0.73, adjusted for his age it is not remarkable. Will obtain assessment by TTE. Cardiology is planning to see him with arrangements for coronary angiography. Noted some CKD, creatinine appears to be close to baseline at 1.3. Reassess renal function. He does have coronary risk factors with prior CAD, as well as diabetes, HTN, HLD, and family history of heart disease. NT proBNP not elevated. Reviewed chest x-ray, unremarkable. EKG on my interpretation with sinus rhythm, LAF. Does appear to have Q waves in V1-V2. Pending official read. Reviewed ER provider note, discussed with ER provider, discussed with inspector wire rope. Anticoagulation with Lovenox, monitor for risk of bleeding. Repeat CBC. Aspirin 325 mg, metoprolol, statin. (2) CAD (coronary artery disease): With prior angiogram through the groin and subsequently angiogram for stent placement over the right wrist back in 2020. (3) Chest pain: Cardiac assessment for stable angina as above. Additionally he does have some reproducible pain on palpation of the left chest wall. He states he is allergic to lidocaine. Tylenol as needed. Reviewed chest x-ray, unremarkable. He denies any injury. He does have history of left shoulder replacement, there is no erythema, swelling, warmth or issues with the left shoulder. Plan DM1: He normally uses insulin pump and has been using it for a long time. He is not sure how much insulin he usually gets through it. However, when he was not feeling well he rushed out of the house without the pump, he also has been short on pump adapters. Reviewed endocrinology note from December. He is going to be n.p.o. after midnight. Will reduce the basal dose somewhat, continue with Lantus 10 units daily for now with low-dose sliding scale and monitor blood glucose, adjust based on response. His is also going to bring in his pump. Monitor POC glucose. Consistent carb diet. CKD: Reassess renal function. HTN, continue lisinopril at 10 mg. Reassess, in case of rising blood pressures resume home dose of 20 mg. BPH: Continue tamsulosin. Attestations 2 Medical Necessity Statement*: Place in observation for additional assessment management of unstable angina in a gentleman with underlying coronary disease, diabetes, other risk factors. Diagnoses Unstable angina I20.0 CAD (coronary artery disease) I25.10 Chest pain R07.9
--- NOTE | 2024-04-29 13:22 | USCV_ITS ---
Alli Abdirahman Age: 83 Gender: M : 1940 Exam Date: 04/29/2024 16:04 Ordering Phys: Dheeraj Contreras MD Technologist: Gerald Urbina Exam Location: [facility] [place] Indication: UA BP: 137 / 83 HR: 70 Rhythm: Sinus Technical Quality: Adequate MEASUREMENTS (Male / Female) Normal Values 2D ECHO LV Diastolic Diameter PLAX 3.6 cm 4.2 - 5.9 / 3.9 - 5.3 cm IVS Diastolic Thickness 1.3 cm 0.6 - 1.0 / 0.6 - 0.9 cm IVS Systolic Thickness 1.2 cm LVPW Diastolic Thickness 2.4 cm 0.6 - 1.0 / 0.6 - 0.9 cm LVPW Systolic Thickness 2.0 cm LVOT Diameter 2.0 cm LV Ejection Fraction 2D Teich 62.5 % LV Ejection Fraction MOD 4C 66.1 % LV Ejection Fraction MOD 2C 62.5 % LV Ejection Fraction 2C AL 63.4 % LA Diameter 3.6 cm RA Systolic Volume 4C AL 27.9 ml RA Systolic Volume 4C MOD 28.1 ml LA Sys Volume AL 38.1 cm cubed LA Sys Volume Index AL 17.2 cm cubed/m squared Aorta at Sinotubular Diameter 2.9 cm M-MODE LA Ao Ratio MM 1.5 AV Cusp Separation MM 1.4 cm DOPPLER AV Peak Velocity 133.0 cm/s LVOT Peak Velocity 112.0 cm/s AV Area Cont Eq vti 2.5 cm squared AV Area Cont Eq pk 2.7 cm squared MV Peak Velocity 115.0 cm/s MV Area PHT 3.2 cm squared Mitral E to A Ratio 0.7 TV Peak Velocity 235.0 cm/s TR Peak Velocity 247.0 cm/s TR Peak Gradient 24.4 mmHg TR Mean Velocity 202.0 cm/s TR Mean Gradient 16.3 mmHg TR Velocity Time Integral 70.9 cm PV Peak Velocity 91.7 cm/s RV Ejection Time 0.2 s FINDINGS Left Ventricle Normal left ventricular size, systolic function and wall thickness, with no regional wall motion abnormalities. Left ventricular ejection fraction is estimated at 60%. Grade I/IV diastolic dysfunction (abnormal relaxation filling pattern), normal to mildly elevated filling pressures. Right Ventricle The right ventricle is normal in size and function. Right Atrium The right atrium is normal in size. Left Atrium The left atrium is normal in size. Mitral Valve Structurally normal mitral valve without significant stenosis or prolapse. There is no mitral regurgitation. Aortic Valve Structurally normal aortic valve without significant sclerosis or stenosis. There is no aortic regurgitation. Tricuspid Valve Structurally normal tricuspid valve without significant stenosis or regurgitation. Pulmonary artery systolic pressure is normal. Pulmonic Valve Structurally normal pulmonic valve without significant stenosis. There is no pulmonic regurgitation. Pericardium Normal pericardium without effusion. Aorta Normal ascending aorta dimension. IVC The inferior vena cava appears normal. CONCLUSIONS Normal left ventricular size, systolic function and wall thickness, with no regional wall motion abnormalities. Left ventricular ejection fraction is estimated at 60%. Grade I/IV diastolic dysfunction (abnormal relaxation filling pattern), normal to mildly elevated filling pressures. There is no pericardial effusion. No significant valve abnormalities. Right atrial pressure is around 5 mm of mercury. Julien Chadwick MD (Electronically Signed) Final Date: 29 April 2024 22:42 S
[2024-04-29 13:34] LABS: Troponin 5 2HR 16.07 ng/L (0-15); Troponin 5 2HR Delta -0.93 ABS# (0-10)
[2024-04-29 13:47] LABS: D Dimer 0.73 ug/mLFEU (0-0.59)
[2024-04-29] MEDS: insulin glargine 100 units/1 mL 10 UNIT SUBCUT (14:01)
[2024-04-29] MEDS: aspirin 325 mg Tablet PO (14:01)
[2024-04-29] MEDS: enoxaparin 100 mg/mL Syringe 90 MG SUBCUT (14:01)
[2024-04-29 16:00] VITALS: BP 119/69; PULSE 82; RESP 20; TEMP 36.5; O2SAT 96
[2024-04-29 17:06] LABS: Glucose Point of Care 306 mg/dL (70-110)
[2024-04-29] MEDS: insulin lispro 100 unit/1 mL SUBCUT (17:22)
--- NOTE | 2024-04-29 17:24 | ECG_ITS ---
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: : 1940 Requested By: Farnaz Toney Order Number: [id number] See MD: LU TREJO Measurements Intervals [place] Rate: 68 P: 75 [place]: 266 QRS: -47 QRSD: 108 T: 70 QT: 407 QTc: 434 Interpretive Statements SINUS RHYTHM WITH FIRST DEGREE AV BLOCK WITH OCCASIONAL SUPRAVENTRICULAR PREMATURE COMPLEXES INCOMPLETE RIGHT BUNDLE BRANCH BLOCK [90+ ms QRS DURATION, TERMINAL R IN V1/V2, 40+ ms S IN I/aVL/V4/V5/V6] LEFT ANTERIOR FASCICULAR BLOCK [QRS AXIS <= -45, QR IN I, RS IN II] MINIMAL VOLTAGE CRITERIA FOR LVH, CONSIDER NORMAL VARIANT [MEETS CRITERIA IN ONE OF: R(aVL), S(V1), R(V5), R(V5/V6)+S(V1)] PROBABLE SEPTAL MYOCARDIAL INFARCTION , PROBABLY OLD [35 ms Q WAVE IN V1/V2] Compared to ECG 04/29/2024 13:49:48 Incomplete right bundle-branch block now present Myocardial infarct finding still present Electronically Signed On 04-29-2024 23:31:36 WATER AND SEWER SYSTEMS SUPERINTENDENT by LU TREJO [email or web address]
[2024-04-29 18:19] LABS: Troponin 5 6HR 14.38 ng/L (0-15)
[2024-04-29 18:20] LABS: Troponin 5 6HR Delta -2.62 ng/L (0-12)
[2024-04-29 19:12] VITALS: BP 113/56; PULSE 95; RESP 19; TEMP 36.8; O2SAT 90
[2024-04-29 20:09] LABS: Glucose Point of Care 98 mg/dL (70-110)
[2024-04-29] MEDS: acetaminophen 325 mg Tablet 650 MG PO (20:47)
[2024-04-29 22:00] VITALS: PULSE 61
[2024-04-30] VITALS: BP 100/56; PULSE 72; RESP 13; TEMP 37; O2SAT 96
[2024-04-30 00:01] LABS: Glucose Point of Care 129 mg/dL (70-110)
[2024-04-30 04:00] VITALS: BP 106/60; PULSE 70; RESP 15; TEMP 36.5; O2SAT 85
[2024-04-30 05:21] LABS: Basophils % 0.5 %; Eosinophils # 0.2 10^3/uL (0.0-0.8); Eosinophils % 3.2 %; Hematocrit 36.3 % (37-53); Lymphocytes # 3.2 10^3/uL (0.8-4.8); Lymphocytes % 57.1 %; Mean Corpuscular HGB Conc 32.8 g/dL (30-55); Mean Corpuscular Hemoglobin 27.4 pg (27-33); Mean Corpuscular Volume 83.4 fl (82-101); Mean Platelet Volume 10.1 fL (7.4-10.4); Monocytes # 0.8 10^3/uL (0.2-0.9); Monocytes % 14.8 %; Neutrophils # 1.37 10^3/uL (1.8-7.7); Neutrophils % 24.2 %; Nucleated Red Blood Cells % 0 %; Platelet Count 331 10^3/cmm (157-399); Red Blood Count 4.35 10^6/uL (3.85-5.65); Red Cell Distribution Width 14.3 % (12.1-15.1); White Blood Count 5.67 10^3/uL (3.29-11.43)
[2024-04-30 05:42] LABS: Anion Gap 15.5 (5-19); Blood Urea Nitrogen 24 mg/dL (8-23); Calcium 9.1 mg/dL (8.5-10.5); Carbon Dioxide 24 mmol/L (22-29); Chloride 100 mmol/L (98-107); Creatinine Clr Calc Pharmacy 63.8425; Glucose 159 mg/dL (65-115); Osmolality Calculated 287 mOsm/kg (285-295); Potassium 4.5 mmol/L (3.5-5.1); Sodium 135 mmol/L (136-145)
[2024-04-30] MEDS: pantoprazole DR 40 mg Tablet PO (06:21)
[2024-04-30 06:22] LABS: Glucose Point of Care 161 mg/dL (70-110)
[2024-04-30 07:18] VITALS: BP 117/61; PULSE 64; RESP 11; TEMP 36.5; O2SAT 96
[2024-04-30] MEDS: aspirin 325 mg Tablet PO (08:55)
--- NOTE | 2024-04-30 10:09 | P.CONIM_ITS ---
Providers/Reason For Consult 2 Consulting Physician/Specialty*: Julien Chadwick MD Reason for Consult*: Chest pain suspicious for unstable angina Attending Physician: Alysha Shen MD Primary Care Provider: VERONICA Herrera History of Present Illness History of Present Illness Abdirahman Carson is a 83 year old male past medical history significant for hypertension hyperlipidemia coronary artery disease with prior history of stent perhaps in RCA no record available to me who has moved from [place] to [place], patient was seen by me in the clinic yesterday for the first time, according to him he used to be very active and for the past few months he has been struggling with off-and-on chest pain on [id number] exertion now to the extent that he cannot walk around his property, he has 2 sets of pain 1in upper left chest other towards the apex of the heart the one on the upper chest appeared to be musculoskeletal and palpable while in the lower part of the left chest is more diffuse and comes on on mild to moderate exertion now to the extent that at rest she feels it. According to him for the past few days it is becoming more constant it has increased in frequency and duration and he is afraid that he will end up in a heart attack. He thinks that his pain characteristics is exactly similar when he had his stent. He thinks it is hindering his quality of life. Patient pain characteristics nature and intensity was suggestive of unstable angina therefore he was referred to emergency room. He was admitted and ruled out for acute coronary syndrome. He still continues to have off-and-on chest pressure which is somewhat relieved by nitroglycerin. X-ray chest did not show any acute pathology, twelve-lead EKG is sinus rhythm normal axis no significant ST changes while echocardiogram showed normal ejection fraction. Since patient continues to have chest pressure exactly in the similar fashion when he had his heart attack therefore we will proceed with left heart cath with the diagnosis of unstable angina. Review of Systems 2 Narrative: Constitutional symptoms: Negative except as documented in HPI. Skin symptoms: Negative except as documented in HPI. Eye symptoms: Negative except as documented in HPI. ENMT symptoms: Negative except as documented in HPI. Respiratory symptoms: Negative except as documented in HPI. Cardiovascular symptoms: Negative except as documented in HPI. Gastrointestinal symptoms: Negative except as documented in HPI. Genitourinary symptoms: Negative except as documented in HPI. Musculoskeletal symptoms: Negative except as documented in HPI. Neurologic symptoms: Negative except as documented in HPI. Psychiatric symptoms: Negative except as documented in HPI. Endocrine symptoms: Negative except as documented in HPI. Const: Denies: fever(s), chills, body aches or malaise Eyes: Denies: photophobia ENMT: Denies: throat pain Card: Reports: chest pain; Denies: edema, pre-syncope or dyspnea on exertion Resp: Denies: dyspnea, productive cough, change in phlegm color or hemoptysis GI: Denies: abdominal pain, nausea, vomiting, diarrhea, constipation, hematochezia or melena : Denies: flank pain, difficulty urinating, urinary frequency or hematuria Musc: Denies: back pain, joint swelling or joint redness Skin/Breast: Denies: rash or new lesions Medications/Allergies Home Medications Medication Instructions Recorded Confirmed Last Taken Type shoulder immobilizer #1 ea 10/28/23 04/29/24 Unknown Rx pantoprazole 40 mg tablet,delayed 40 mg PO QAM 12/11/23 04/29/24 04/29/24 07:00 History release (Protonix) infusion set for insulin pump #10 ea 12/21/23 04/29/24 Unknown Rx (M[facility]Med [place] Advance Infusion Set 23 ) infusion set for insulin pump 12/21/23 04/29/24 Unknown History (M[facility]Med [place] Advance Infusion Set 43 ) insulin pump syringe 3 mL #10 ea 12/21/23 04/29/24 Unknown Rx ([facility] Early) alirocumab 75 mg/mL subcutaneous 75 mg SUBCUT Q14D #2 mL 12/23/23 04/29/24 Unknown Rx pen injector (Praluent Pen) cholecalciferol (vitamin D3) 10 10 mcg PO DAILY 03/29/24 04/29/24 04/29/24 07:00 History mcg (400 unit) capsule (Vitamin D3) insulin aspart U-100 100 unit/mL See Rx Instructions .Route .COMPLEX 03/29/24 04/29/24 04/29/24 History (3 mL) subcutaneous pen lisinopril 20 mg tablet 20 mg PO DAILY 03/29/24 04/29/24 04/29/24 History tamsulosin 0.4 mg capsule 0.4 mg PO DAILY 03/29/24 04/29/24 04/28/24 20:00 History Allergies Allergy/AdvReac Type Severity Reaction Status Date / Time lidocaine Allergy Unknown Unknown Unverified 04/29/24 14:17 codeine Allergy ALGY-Rash Verified 03/31/24 14:47 hydromorphone Allergy ADR-Itching Verified 03/31/24 14:47 oxycodone Allergy ADR-Itching Verified 03/31/24 14:47 oxytetracycline Allergy ALGY-Rash Verified 03/31/24 14:47 [From Terramycin] Eadcdwh-UAF-XaT Reductase Allergy ADR-Muscle Verified 04/30/24 02:40 Inhibitor Pain tramadol Allergy ADR-Itching Verified 03/31/24 14:47 Current Medications Generic Name Dose Route Start Last Admin Trade Name Freq PRN Reason Stop Dose Admin Acetaminophen 650 mg 04/29/24 13:15 04/29/24 20:47 Acetaminophen 325 Mg Tablet PO 650 mg Q6H PRN Administration Mild/Mod Pain Or Temp >/= 101 Aspirin 325 mg 04/29/24 13:20 04/30/24 08:55 Aspirin 325 Mg Tablet PO 325 mg DAILY [facility] Administration Atorvastatin Calcium 40 mg 04/29/24 21:00 04/29/24 20:38 Atorvastatin 40 Mg Tablet PO Not Given BEDTIME [facility] Enoxaparin Sodium 90 mg 04/29/24 13:30 04/30/24 02:12 Enoxaparin 100 Mg/Ml Syringe 1 mg/kg (90 mg) Not Given SUBCUT Q12H [facility] Insulin Glargine 10 unit 04/29/24 13:30 04/30/24 09:07 Insulin Glargine 100 Units/1 Ml SUBCUT Not Given DAILY [facility] Insulin Human Lispro 0 unit 04/29/24 18:00 04/30/24 07:13 Insulin Lispro 100 Unit/1 Ml SUBCUT Not Given WM&BEDTIME [facility] Protocol Lisinopril 10 mg 04/30/24 09:00 04/30/24 09:07 Lisinopril 10 Mg Tablet PO Not Given DAILY [facility] Metoprolol Tartrate 25 mg 04/29/24 21:00 04/30/24 09:07 Metoprolol Tartrate 25 Mg Tablet PO Not Given BID@0900,2100 [facility] Pantoprazole Sodium 40 mg 04/30/24 06:00 04/30/24 06:[address] 40 Mg Tablet PO 40 mg QAM MANPREET Administration Tamsulosin HCl 0.4 mg 04/30/24 09:00 04/30/24 09:07 Tamsulosin 0.4 Mg Capsule PO Not Given DAILY MANPREET PFSH Acute 2 PFSH: Medical History (Updated 04/30/24 @ 11:25 by Julien Chadwick MD) Hypertension CAD (coronary artery disease) Surgical History (Updated 04/29/24 @ 14:18 by Dheeraj Contreras MD) H/O shoulder replacement Social History Smoking and tobacco/nicotine status: former use of tobacco/nicotine Vitals/I&O/Wt Last Vital Signs Temp 97.7 F 04/30/24 07:18 Pulse 64 04/30/24 07:18 Resp 11 L 04/30/24 07:18 BP 117/61 04/30/24 07:18 Pulse Ox 96 04/30/24 07:18 O2 Del Method Room Air 04/30/24 07:18 04/29/24 04/30/24 04/30/24 22:59 06:59 14:59 Intake Total 360 / 360 300 / 660 Output Total 700 / 875 200 / 1075 Balance -340 / -515 100 / -415 Weight last 48 hrs Weight 203 lb Weight 200 lb Weight 200 lb Physical Exam 2 Const: OTHER: GENERAL: Patient is alert, awake and oriented x3. HEART: Regular S1 and S2. No murmur, rub or gallop. LUNGS: Clear to auscultate bilaterally. CENTRAL NERVOUS SYSTEM: Grossly nonfocal. EXTREMITIES: Lower extremities with out edema bilaterally. Data 04/30/24 04:59 04/30/24 04:59 A&P Assessment and plan (1) Unstable angina: 83-year-old otherwise active male past medical history significant for hypertension hyperlipidemia diabetes mellitus coronary artery disease history of prior PCI few years ago now presenting with chest pain increasing frequency duration suggestive of unstable angina, will continue aspirin statin beta- lupis anticoagulation and will proceed with left heart cath. Patient has been explained all risk-benefit and alternative for the procedure he would like to proceed with it. (2) Diabetes, type I: Recommendation as per medicine (3) Hypertension: Will continue to optimize medications Coding Level of Care Code Acute Code for [facility] Fwd Diagnoses Unstable angina I20.0 Diabetes, type I E10.9 Hypertension I10
--- NOTE | 2024-04-30 10:50 | PC.CHAP ---
Pastoral Care Encounter/Spiritual Assessment Type of Contact [] Declined forest manager visit [] Patient/Family/Request visit [] Outpatient visit [] Follow-up visit [] Physician referral [] Code/Alert [x] Routine visit [] Staff referral [] Actively dying [] Patient sleeping [] Family support [] [] Out of room [] Palliative care [] [] Receiving care in room [] Pre-surgical visit [] Trauma [] Long length of stay [] ICU visit [] Other: Relational/Emotional Strength [x] Patient feels connected with others/family/visitors/staff [] Distress [] Loneliness/isolation [] Abandonment Spirituality of Patient [x] Person of Katie [x] Attends Taoist of their Katie [x] Believes in Prayer [x] Reads Bible or Anabaptism materials [] There are Spiritual issues to be addressed Picker Tender Helper Interventions [x] Prayer [x] Active listening [x] Non-anxious presence [] Spiritual/emotional support [] Crisis/trauma care [] Spiritual counseling [] Bereavement support [] Provided bereavement packet [] Provided Bible/devotional materials [] Provided toy/stuffed animal, coloring book to patient or family member [] Provided Communion [] Anointing/[place] [] Salvation [] Completed spiritual assessment [] Other: Impact on Illness or Injury [] Angry [] Fearful [] Anxious [] Often cries [] Exhaustion [] Unable to work [] Unable to attend pentecostal [] Unable to walk/stand [] Unable to read [] Unable to drive [] Unable to eat/drink [] Unable to sleep [] Unable to be with family [] Patient intubated [] 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
[2024-04-30 11:14] VITALS: BP 146/73; PULSE 68; RESP 25; TEMP 36.6; O2SAT 97
--- NOTE | 2024-04-30 11:33 | XACV_ITS ---
Exam Room: 2 Ht: 196 cm Wt: 92 kg BSA: 2.24 m2 Gender: Male : 1940 Any Known Allergies: Other Exam Priority: Routine Procedure(s): Procedure Description: Diagnostic procedure [id number], Chadwick; Diagnostic Cath Status: Elective Diagnostic Findings * Left Main has no disease. * Circumflex has no disease. * Right Coronary Artery has no disease. * Distal Left Anterior Descending: minimal 30% stenosis, JOCELYN: 3 flow. Patent previously placed proximal LAD stent. * Coronary angiography shows right dominance. Conclusions 1. There is minimal coronary artery disease with one vessel disease. 2. Normal left ventricular systolic function. Ejection fraction of 65%. Recommendations * Continue current medical management and risk factor modification. Diagnostic RX Recommendation: medical therapy and/or counseling LV EDP: 2 mmHg Ventriculography Ejection Fraction: 65.0 % Pressures Phase:Rest AO : 76 / 55 ( 66 ) @ 12:27:00 PM 74 / 56 ( 66 ) @ 12:30:00 PM 135 / 69 ( 98 ) @ 12:37:00 PM LV : 142 / -18 / 2 @ 12:36:00 PM 141 / -21 / 2 @ 12:37:00 PM 142 / -19 / 1 @ 12:37:00 PM Valves Phase:DefaultPhase AV : 7.0 @ 12:46:59 PM AV Mean Gradient: 11.0 @ 12:46:59 PM 11.0 @ 12:46:59 PM Clinical Evaluation EBL: 5mL-10mL Procedural Details Pre-Procedure Time Out. Identified patient by full name and date of as verbalized by the patient/guarantor. Does the consent match the physician's order: Yes. Accurate & Complete Informed Consent: Yes. Inpatient/Outpatient History & Physical on Chart: Yes. If H&P is completed, is and addenduem needed: No; If yes, is the addendum complete: N/A. Visualize and Verify Site with Patient/Guarantor: N/A. Relevant Radiology Images available: Yes. Pre-op teaching completed and patient verbalized understanding. The risks, benefits, and alternatives of sedation and/or procedure were discussed by physician. The patient agrees to continue. Procedure started. Current Diagnosis : Chest Pain. Physician arrived. [facility] Clinical Fraility Score: 3: Managing Well. Cloth Bale Header Indications: Worsening Angina. Chest Pain Symptom Assessment: Typical Angina Symptoms. Correct patient, site and procedure confirmed by cath team. Current diagnosis: Chest Pain. PERRLA. 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 Lungs clear x 5 lobes. IV Site on Arrival: 18 gauge in the right anticubital. IV Fluids: 0.9% NaCl at KVO. 0 mL infused prior to laboratory cureman. Oxygen started at 2liters/min via nasal canula. right groin was prepped with chloroprep then draped in the usual sterile fashion. right radial was prepped with chloroprep then draped in the usual sterile fashion. Baseline sample Acquired. HR: 69 BPM. Physician scrubbed in. Immediate Pre-Procedure Time Out. Correct Patient: Yes; Correct Procedure: Yes; Correct Site: Yes; Correct Patient Position: Yes; Correct Supplies: Yes; Dried Flammable Prep: Yes; Blood Products Available: N/A;. Lidocaine 1% infiltrated to the right radial. Arterial access obtained. A 5 belarusian Rogelio catheter in over wire. Multiple views taken of left coronary artery. Catheter redirected to the RCA. Multiple views taken of right coronary artery. Catheter removed over the exchange wire. A 5 belarusian Angled Pig catheter in over wire. EDP Sample taken: LV 142/-19,2; HR: 79 BPM; SpO2: 100%. LV gram performed in DU @ 10 mL/second for a total of 30 mL. EDP Sample taken: LV 141/-22,2; HR: 80 BPM; SpO2: 100%. Pullback taken: LV 142/-20,1; AO 135/69(98); Mean: 11mmHg, Peak to Peak: 7mmHg, SEP: 19sec/min; HR: 81 BPM; SpO2: 96%. Catheter removed over the exchange wire. Vital chart was stopped. A TR Band was successful obtaining hemostatsis at the Right Radial artery insertion site. Post Procedure: Pulses reassessed and unchanged. PERRLA. 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 No VTE prophylaxis required. Medication's Wasted: Lidocaine 1% = 18 mL. Total IV fluids: 30 mL. Medication's Wasted: Nitro = 49.8 mcg. Medication's Wasted: Other = Fentanyl 75 mcg. Medication's Wasted: Heparin = 1000 units. Post-op diagnosis: Normal Coronaries. Complications: None. Estimated blood loss: 5mL-10mL. Responsiveness - Normal response to verbal stimuli; alert and oriented, PERRLA. Airway - Unaffected, no intervention required; spontaneous ventilation. Circulation: W/N/L, pulses unchanged. Nausea/Vomiting: No. Procedure completed. Patient transferred by bed to 1st floor. Access Site Site: Right Radial artery Sheath Size: 6 Fr Hemostasis Method: TR Band Hemostasis Success: Successful Procedure Medications Start: 12:05 PM Stop: 12:05 PM Medication: Benadryl Amount: 25 mg Route: I.V. Start: 12:17 PM Stop: 12:17 PM Medication: Versed Amount: 1 mg Route: I.V. Start: 12:22 PM Stop: 12:22 PM Medication: Nitrogylcerin Amount: 200 mcg Route: I.A. Start: 12:25 PM Stop: 12:25 PM Medication: Heparin Amount: 5000 units Route: I.V. Start: 12:42 PM Stop: 12:42 PM Medication: Versed Amount: 1 mg Route: I.V. I, the attending physician, have reviewed and verified all procedure medications. Yes, all medications given per verbal order History/Risk Factors Hypertension: Yes Dyslipidemia: Yes Peripheral Arterial Disease (PAD): No Myocardial Infarction (WI): No Obesity: No Renal Disease: No Tobacco Use: Former Prior Interventions PCI: No CABG: No Valve Surgery: No Report Signatures Finalized by Julien Chadwick MD on 04/30/2024 12:59 PM
--- NOTE | 2024-04-30 11:43 | W.PM.OPSUD ---
Surgery/Procedure H&P Update DATE OF PROCEDURE: April 30, 2024 DATE H&P PERFORMED: 04/30/24 H&P UPDATE INFORMATION: I have reviewed H&P completed within last 30 days, I have examined patient prior to procedure and No changes to prior documentation PREOP DIAGNOSIS: Unstable angina, CAD PLANNED PROCEDURE: Left heart cath/PCI 20 PATIENT REASSESSED PRIOR TO SEDATION, WITH NO CHANGE NOTED: Yes PHYSICAL EXAM: alert, oriented x 3, clear to auscultation bilaterally, regular rate & rhythm and operative site marked OTHER PERTINENT EXAM FINDINGS: Patient has been explained all this benefit and alternative for the procedure he understand risk of stroke major bleed hematoma vascular injury leading to vascular surgery urgent emergent bypass or vascular surgery. He would like to proceed with it. AIRWAY EVAL/ANESTHESIA PLAN: ASA II, Risks, benefits & alternatives of sedation and/or procedure discussed and Patient agrees to continue as planned
[2024-04-30 11:45] LABS: Glucose Point of Care 172 mg/dL (70-110)
--- NOTE | 2024-04-30 12:16 | P.PN_ITS ---
Subjective 2 Subjective: Seen this morning. Patient awaiting angiogram this morning. States had some chest pain overnight however is chest pain-free at this time. Vitals/I&O/Wt Last Vital Signs Temp 97.9 F 04/30/24 11:14 Pulse 68 04/30/24 11:14 Resp 25 H 04/30/24 11:14 BP 146/73 04/30/24 11:14 Pulse Ox 97 04/30/24 11:14 O2 Del Method Room Air 04/30/24 11:14 04/29/24 04/30/24 04/30/24 22:59 06:59 14:59 Intake Total 360 / 360 300 / 660 Output Total 700 / 875 200 / 1075 400 / 400 Balance -340 / -515 100 / -415 -400 / -400 Weight last 48 hrs Weight 92.079 kg Weight 90.718 kg Weight 90.718 kg Physical Exam 2 Const: COMMON NORMALS: patient oriented x3 and alert GENERAL APPEARANCE: c ooperative ORIENTATION/CONSCIOUSNESS: Yes awake Resp: COMMON NORMALS: normal respiratory effort and clear to auscultation bilaterally AUSCULTATION: clear to auscultation bilaterally Cardio: COMMON NORMALS: regular rhythm, S1 normal heart sound present, S2 normal heart sound present and No murmurs present (Cardio) RHYTHM: regular rhythm HEART SOUNDS: S1 normal heart sound present and S2 normal heart sound present GI: COMMON NORMALS: Normal to inspection, nondistended, normoactive bowel sounds present, Soft to palpation and non-tender PALPATION: Yes Soft to palpation Extremity: COMMON NORMALS: no joint enlargement and no pedal edema Neuro: COMMON NORMALS: patient oriented x3 and moves all extremities S ENSORIUM/ORIENTATION: Yes alert Skin: COMMON NORMALS: no rashes or lesions noted GENERAL SKIN EXAM: no rashes or lesions noted Data 04/30/24 04:59 04/30/24 04:59 A&P Assessment and plan (1) Unstable angina: Unstable angina with severe chest pain yesterday, persistent chest pain/pressure on the left side today. Monitor on telemetry with risk of arrhythmia. Complete troponin EKG series. Requested D-dimer, 0.73, adjusted for his age it is not remarkable. Will obtain assessment by TTE. Cardiology is planning to see him with arrangements for coronary angiography. Noted some CKD, creatinine appears to be close to baseline at 1.3. Reassess renal function. He does have coronary risk factors with prior CAD, as well as diabetes, HTN, HLD, and family history of heart disease. NT proBNP not elevated. Reviewed chest x-ray, unremarkable. EKG on my interpretation with sinus rhythm, LAF. Does appear to have Q waves in V1-V2. Pending official read. Reviewed ER provider note, discussed with ER provider, discussed with digital communications manager. Anticoagulation with Lovenox, monitor for risk of bleeding. Repeat CBC. Aspirin 325 mg, metoprolol, statin. (2) CAD (coronary artery disease): With prior angiogram through the groin and subsequently angiogram for stent placement over the right wrist back in 2020. (3) Chest pain: Cardiac assessment for stable angina as above. Additionally he does have some reproducible pain on palpation of the left chest wall. He states he is allergic to lidocaine. Tylenol as needed. Reviewed chest x-ray, unremarkable. He denies any injury. He does have history of left shoulder replacement, there is no erythema, swelling, warmth or issues with the left shoulder. Plan DM1: He normally uses insulin pump and has been using it for a long time. He is not sure how much insulin he usually gets through it. However, when he was not feeling well he rushed out of the house without the pump, he also has been short on pump adapters. Reviewed endocrinology note from December. He is going to be n.p.o. after midnight. Will reduce the basal dose somewhat, continue with Lantus 10 units daily for now with low-dose sliding scale and monitor blood glucose, adjust based on response. His is also going to bring in his pump. Monitor POC glucose. Consistent carb diet. CKD: Reassess renal function. HTN, continue lisinopril at 10 mg. Reassess, in case of rising blood pressures resume home dose of 20 mg. BPH: Continue tamsulosin. 04/30/2024 -Plan for coronary angiogram today ? Patient n.p.o. since midnight ? Continue aspirin atorvastatin, metoprolol to tartrate ? Continue therapeutic Lovenox 90 twice daily ? Further recommendations to be made after completion of procedure ? Continue sliding scale insulin moderate dose intensity ? Continue Lantus 10 daily ? Continue to check blood glucose Attestations 2 Medical Necessity Statement*: Place in observation for additional assessment management of unstable angina in a gentleman with underlying coronary disease, diabetes, other risk factors. Diagnoses Unstable angina I20.0 CAD (coronary artery disease) I25.10 Chest pain R07.9
[2024-04-30 12:45] VITALS: BP 114/76; PULSE 80; RESP 18
[2024-04-30 13:36] LABS: Glucose Point of Care 183 mg/dL (70-110)
[2024-04-30] MEDS: sodium chloride 0.9% 1,000 ML 100 ML IV (13:44)
[2024-04-30] MEDS: insulin lispro 100 unit/1 mL SUBCUT (13:44)
[2024-04-30 16:00] VITALS: BP 96/58; PULSE 71; RESP 14; TEMP 36.7; O2SAT 97
--- NOTE | 2024-04-30 16:26 | PM.DCS ---
Discharge Providers Date of Admission: 04/29/24 11:48 Date of Discharge: April 30, 2024 Attending Provider at Admission: Dheeraj Contreras Attending Provider at Discharge: Alysha Shen MD Primary Care Provider: VERONICA Herrera Diagnoses at Discharge Discharge Diagnosis (1) Unstable angina: Status: Resolved (2) CAD (coronary artery disease): Status: Acute (3) Chest pain: Status: Resolved Reason for Visit Reason for Visit: chest pain Hospital Course Hospital Course Patient was admitted for unstable angina and underwent a coronary angiogram. Final cath report pending however there were no lesions seen on angiogram. Patient was discharged home in stable condition to follow-up with cardiology as an outpatient. He was sent home on aspirin atorvastatin metoprolol. Physical Exam Const: COMMON NORMALS: patient oriented x3 and alert GENERAL APPEARANCE: cooperative ORIENTATION/CONSCIOUSNESS: Yes awake Resp: COMMON NORMALS: normal respiratory effort and clear to auscultation bilaterally AUSCULTATION: clear to auscultation bilaterally Cardio: COMMON NORMALS: regular rhythm, S1 normal heart sound present, S2 normal heart sound present and No murmurs present (Cardio) RHYTHM: regular rhythm HEART SOUNDS: S1 normal heart sound present and S2 normal heart sound present GI: COMMON NORMALS: Normal to inspection, nondistended, normoactive bowel sounds present, Soft to palpation and non-tender PALPATION: Yes Soft to palpation Extremity: COMMON NORMALS: no joint enlargement and no pedal edema Neuro: COMMON NORMALS: patient oriented x3 and moves all extremities SENSORIUM/ORIENTATION: Yes alert Skin: COMMON NORMALS: no rashes or lesions noted GENERAL SKIN EXAM: no rashes or lesions noted Discharge Data Studies Completed and Pending Completed Studies During Hospitalization Category Date Time Status TAXI PROPRIETOR request for service Routine Exams 04/30/24 11:33 Completed XR chest 1V portable [id number] Urgent Exams 04/29/24 10:46 Completed CV. echo complete* [id number] Routine Ultrasound 04/29/24 13:22 Completed Pending at discharge Category Date Time Status Basic Metabolic Panel AM LABS Lab 05/01/24 04:00 Ordered Basic Metabolic Panel AM LABS Lab 05/02/24 04:00 Ordered Complete Blood Count w/Auto AM LABS Lab 05/01/24 04:00 Ordered Complete Blood Count w/Auto AM LABS Lab 05/02/24 04:00 Ordered Radiology Impressions Chest X-Ray 04/29/24 10:46 IMPRESSION: Stable chest without acute abnormality. Laboratory Results WBC 5.67 10^3/uL (3.29-11.43) 04/30/24 04:59 RBC 4.35 10^6/uL (3.85-5.65) 04/30/24 04:59 Hgb 11.90 g/dL (11.27-16.99) 04/30/24 04:59 Hct 36.3 % (37-53) L 04/30/24 04:59 MCV 83.4 fl (82-101) 04/30/24 04:59 MCH 27.4 pg (27-33) 04/30/24 04:59 MCHC 32.8 g/dL (30-55) 04/30/24 04:59 RDW 14.3 % (12.1-15.1) 04/30/24 04:59 Plt Count 331 10^3/cmm (157-399) 04/30/24 04:59 MPV 10.1 fL (7.4-10.4) 04/30/24 04:59 Neut % (Auto) 24.2 % 04/30/24 04:59 Lymph % (Auto) 57.1 % 04/30/24 04:59 [place] % (Auto) 14.8 % 04/30/24 04:59 Eos % (Auto) 3.2 % 04/30/24 04:59 Baso % (Auto) 0.5 % 04/30/24 04:59 Neut # (Auto) 1.37 10^3/uL (1.8-7.7) L 04/30/24 04:59 Lymph # (Auto) 3.2 10^3/uL (0.8-4.8) 04/30/24 04:59 [place] # (Auto) 0.8 10^3/uL (0.2-0.9) 04/30/24 04:59 Eos # (Auto) 0.2 10^3/uL (0.0-0.8) 04/30/24 04:59 Baso # (Auto) 0.0 10^3/uL (0.0-0.1) 04/30/24 04:59 Nucleated RBC % (auto) 0 % 04/30/24 04:59 Nucleated RBCs # 0.0 /100WBC 04/30/24 04:59 D-Dimer 0.73 ug/mLFEU (0-0.59) H 04/29/24 11:02 Sodium 135 mmol/L (136-145) L 04/30/24 04:59 Potassium 4.5 mmol/L (3.5-5.1) 04/30/24 04:59 Chloride 100 mmol/L (98-107) 04/30/24 04:59 Carbon Dioxide 24 mmol/L (22-29) 04/30/24 04:59 Anion Gap 15.5 (5-19) 04/30/24 04:59 BUN 24 mg/dL (8-23) H 04/30/24 04:59 Creatinine 1.1 mg/dL (0.7-1.2) 04/30/24 04:59 GFR Calculation Not Reportable 04/30/24 04:59 Glucose 159 mg/dL (65-115) H 04/30/24 04:59 POC Glucose 183 mg/dL (70-110) H 04/30/24 13:30 Calculated Osmolality 287 mOsm/kg (285-295) 04/30/24 04:59 Calcium 9.1 mg/dL (8.5-10.5) 04/30/24 04:59 Total Bilirubin 1.0 mg/dL (0.15-1.2) 04/29/24 11:02 AST 16 U/L (0-40) 04/29/24 11:02 ALT 13 U/L (0-41) 04/29/24 11:02 Alkaline Phosphatase 95 U/L (40-130) 04/29/24 11:02 Troponin T Baseline 17 ng/L (0-15) H 04/29/24 11:02 Troponin T 120 Minute 16.07 ng/L (0-15) H 04/29/24 13:09 Delta Troponin T -0.93 ABS# (0-10) L 04/29/24 13:09 Troponin T Hi Sens 6Hr 14.38 ng/L (0-15) 04/29/24 17:50 Troponin T Hi Sens 6Hr Delta -2.62 ng/L (0-12) L 04/29/24 17:50 NT-Pro-B Natriuret Pep 105 pg/mL (0-450) 04/29/24 11:02 Total Protein 7.0 g/dL (6.6-8.7) 04/29/24 11:02 Albumin 4.0 g/dL (3.5-5.2) 04/29/24 11:02 Globulin 3.0 g/dL (1.3-4.6) 04/29/24 11:02 Vitals Last Vital Signs Temp 98.1 F 04/30/24 16:00 Pulse 71 04/30/24 16:00 Resp 14 04/30/24 16:00 BP 96/58 04/30/24 16:00 Pulse Ox 97 04/30/24 16:00 O2 Del Method Room Air 04/30/24 16:00 Discharge Plan Discharge Patient Disposition: Home Condition: Stable Prescriptions: New aspirin 325 mg Tablet 325 mg PO DAILY Qty: 30 0RF metoprolol tartrate 25 mg Tablet 25 mg PO BID@0900,2100 Qty: 60 0RF Continued (DME) MiniMed [place] Advance Inf Set43 Infusion Set See Rx Instructions .Route Rx Instructions: As directed (DME) MiniMed [place] Advance Inf Set23 Infusion Set See Rx Instructions .Route Qty: 10 1RF Rx Instructions: 9 mm cannula MMT 243A (DME) [facility] [place] 3 mL misc See Rx Instructions .Route Qty: 10 1RF Rx Instructions: MMT 332A (DME) shoulder immobilizer See Rx Instructions .Route .MEDSUPPLY Qty: 1 0RF Rx Instructions: As directed Praluent Pen 75 mg/mL pen injector 75 mg SUBCUT Q14D Qty: 2 2RF pantoprazole [Protonix] 40 mg Tablet,Delayed Release (Dr/Ec) 40 mg PO QAM lisinopril 20 mg Tablet 20 mg PO DAILY tamsulosin 0.4 mg Capsule 0.4 mg PO DAILY cholecalciferol (vitamin D3) [Vitamin D3] 10 mcg (400 unit) Capsule 10 mcg PO DAILY insulin aspart U-100 100 unit/mL (3 mL) Insulin Pen See Rx Instructions .ROUTE .COMPLEX Rx Instructions: inject as directed under the skin via insulin pump for diabetes, discard any vial 28 days after opening Discharge Orders: Discharge Order (Routine); Ordered 04/30/24 Ordered By: Alysha Shen Referrals: Katherine Durán FNP [Nurse Practitioner] - 1 month (We have notified your physician's clinic of the need for a follow-up appointment to be scheduled. If you have not heard from them within the next 2 business days, please call them directly. ) Sonja Figueroa, [employer]ENDER [Primary Care Provider] - 4-7 days (We have notified your physician's clinic of the need for a follow-up appointment to be scheduled. If you have not heard from them within the next 2 business days, please call them directly. ) Discharge Diet: Diabetic Discharge Activity: Limit activity as instructed Patient Instructions: Metoprolol (By mouth), Aspirin (By mouth), Angina (DC), Chest Pain (DC), Opioid Safety, Post Angiogram Home Care Instructions Discharge Attestations Time Spent in Discharge Care*: greater than 30 min Quality Metrics Clinical Quality Measures [ No reported AMI, CVA or VTE this stay] Coding Level of Care Code Acute Code for Chg Fwd Diagnoses Unstable angina I20.0 CAD (coronary artery disease) I25.10 Chest pain R07.9
[2024-04-30 17:00] LABS: Glucose Point of Care 180 mg/dL (70-110)
== END 2024-04-30 17:24 | disposition home or self-care (01) ==
LOC: ER 11:54 → CSU 11:55
PROVIDERS: Internal Medicine Cardiovascular Disease; Physician Assistant; Admitting Provider Internal Medicine; Emergency Provider Emergency Medicine; PCP Nurse Practitioner; Visit Provider Internal Medicine
DX: I25.110 Atherosclerotic heart disease of native coronary artery with unstable angina pectoris (principal); N40.0 Benign prostatic hyperplasia without lower urinary tract symptoms; E11.22 Type 2 diabetes mellitus with diabetic chronic kidney disease; I12.9 Hypertensive chronic kidney disease with stage 1 through stage 4 chronic kidney disease, or unspecified chronic kidney disease; N18.9 Chronic kidney disease, unspecified; E78.5 Hyperlipidemia, unspecified; Z87.891 Personal history of nicotine dependence; Z95.5 Presence of coronary angioplasty implant and graft
CPT/HCPCS: 36415; 36416; 71045; 80048; 80053; 82962; 83880; 84484; 85025; 85378; 93005; 93306; 93458; 96372; 96374; 96375; 99152; 99153; 99204; 99285; C1769; C1887; C1894; G0378; J1200; J1644; J1650; J1815; J2250; J3010; J7030; Q9967

== ENCOUNTER 2024-06-03 08:02 | Inpatient (IN) | payer OTHER, SELFPAY ==
[2024-06-03] VITALS (37 sets, daily range): BP systolic 91–150; BP diastolic 57–99; PULSE 69–104; RESP 7–27; TEMP 36.3–36.6; O2SAT 84–100; BMI 23.1
--- NOTE | 2024-06-03 08:06 | XR_ITS ---
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 No other fractures. Soft tissues are unremarkable. Degenerative change of the joint compartment. XR/XR hip LT 2-3V wo/w pel* [id number] IMPRESSION: 1. 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
--- NOTE | 2024-06-03 08:17 | ECG_ITS ---
[facility] Test Date: 2024-06-03 Pat Name: Abdirahman Carson Department: Room: Gender: Male Proposal Editor: : 1940 Requested By: Demetris Brooks Order Number: [id number] Reading MD: LU TREJO Measurements Intervals [place] Rate: 78 P: 83 CT: 252 QRS: -34 QRSD: 111 T: 126 QT: 403 QTc: 459 Interpretive Statements SINUS RHYTHM WITH FIRST DEGREE AV BLOCK WITH OCCASIONAL VENTRICULAR PREMATURE COMPLEXES LEFT AXIS DEVIATION [QRS AXIS < -30] SEPTAL MYOCARDIAL INFARCTION , PROBABLY OLD [40+ ms Q WAVE IN V1/V2] Compared to ECG 04/29/2024 17:24:31 Ventricular premature complex(es) now present Left-axis deviation now present Incomplete right bundle-branch block no longer present Left anterior fascicular block no longer present Myocardial infarct finding still present Electronically Signed On 06-07-2024 23:44:35 SIDE STITCHER by LU TREJO [email or web address]
--- NOTE | 2024-06-03 08:17 | XR_ITS ---
WS: [email or web address] Exam: XR chest 1V portable [id number] Date/Time of Exam: 06/03/2024 8:27 AM Reason For Exam: dyspnea/cough Comparison 04/29/2024. Lungs are fully inflated and clear. Eventration of the RIGHT diaphragm. Normal cardiomediastinal silhouette. No pleural effusions. Bony structures are intact. Reverse LEFT shoulder prosthesis in place. Old LEFT clavicle fracture. XR/XR chest 1V portable [id number] IMPRESSION: 1. No acute cardiopulmonary finding.
--- NOTE | 2024-06-03 08:17 | CT_ITS ---
WS: [email or web address] CT HEAD NONCONTRAST HISTORY: Trauma, headache TECHNIQUE: Contiguous axial imaging performed through the brain. Bone and soft tissue windows. Sagittal and coronal reformats reviewed. All CT scans at [facility] use at least one of these dose optimization techniques: automated exposure control; mA and/or kV adjustment per patient size (includes targeted exams where dose is matched to clinical indication); or iterative reconstruction. DLP: 1458.95 mGy.cm COMPARISON: 10/13/2023 No acute intracranial hemorrhage, midline shift or mass effect. Moderate atrophy and moderate small vessel ischemic changes in the periventricular white matter. No prior infarct. No progression of small vessel disease. Ventricles: Normal size with no hydrocephalus. No inferior displacement of the cerebellar tonsils. Paranasal sinuses: As visualized are clear. Mastoid air cells: Well pneumatized. Calvarium and scalp: No skull fracture. Mild soft tissue contusion over the LEFT frontal bone. CT/CT head wo con* [id number] IMPRESSION: 1. No acute intracranial hemorrhage or edema. 2. Moderate cerebral atrophy and small vessel ischemic changes are chronic. 3. Mild soft tissue contusion LEFT frontal scalp. No fracture.
--- NOTE | 2024-06-03 08:17 | CT_ITS ---
WS: [id number] CT CERVICAL SPINE HISTORY: Trauma TECHNIQUE: Contiguous 2.0 mm axial imaging performed through the entire cervical spine. Sagittal and coronal reformats also performed. All CT scans at [facility] use at least one of these dose optimization techniques: automated exposure control; mA and/or kV adjustment per patient size (includes targeted exams where dose is matched to clinical indication); or iterative reconstruction. DLP: 1458.95 mGy.cm COMPARISON: 10/05/2023 Prior complete fusion at C5-6 and C6-7. Fusion appears intact. No malalignment of the posterior vertebral bodies or facet joints. Marked narrowing of the facet joints. No subluxation or dislocation. No fractures are identified. Craniocervical junction is normal. Odontoid is intact and the lateral masses are aligned. Bilateral, marked facet joint arthropathy resulting in foraminal stenosis throughout the cervical spine. No acute appearing disc protrusions. Lung apices are clear. CT/CT cervical spin wo con* [id number] IMPRESSION: 1. No acute cervical spine fracture. 2. 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 3. Prior C5-6 and C6-7 fusion is complete and stable.
--- NOTE | 2024-06-03 08:18 | XR_ITS ---
WS: [email or web address] Exam: XR elbow LT min 3V* [id number] Date/Time of Exam: 06/03/2024 8:27 AM Reason For Exam: trauma No fracture or dislocation. The joints are preserved. Slight degenerative change. No joint effusion. XR/XR elbow LT min 3V* [id number] IMPRESSION: 1. No fracture or other significant finding.
--- NOTE | 2024-06-03 08:39 | W.ED.FALL ---
HPI - Fall General: Chief Complaint: Fall Stated Complaint: FALL L HIP PAIN Time Seen by Provider: 06/03/24 08:06 History of Present Illness: 83-year-old male presents emergency room via EMS after ground-level mechanical fall at home he is complaining of left hip pain left elbow pain he also hit his head when he fell. There was no loss consciousness the elbow seems to already be improved some. His biggest pain is the left hip. Patient does have a history of type 1 diabetes mellitus and history of coronary artery disease Associated symptoms-after fall: Denies abdominal pain, chest pain or neck pain Related Data Home Medications ?Medication ?Instructions ?Recorded ?Confirmed pantoprazole 40 mg tablet,delayed 40 mg PO QAM 12/11/23 06/03/24 release (Protonix) cholecalciferol (vitamin D3) 10 10 mcg PO DAILY 03/29/24 06/03/24 mcg (400 unit) capsule (Vitamin D3) insulin aspart U-100 100 unit/mL See Rx Instructions .Route .COMPLEX 03/29/24 06/03/24 (3 mL) subcutaneous pen lisinopril 20 mg tablet 20 mg PO DAILY 03/29/24 06/03/24 tamsulosin 0.4 mg capsule 0.4 mg PO DAILY 03/29/24 06/03/24 nifedipine 30 mg tablet,extended 30 mg PO DAILY 06/03/24 06/03/24 release Previous Rx's ?Medication ?Instructions ?Recorded alirocumab 75 mg/mL subcutaneous 75 mg SUBCUT Q14D #2 mL 12/23/23 pen injector (Praluent Pen) aspirin 325 mg tablet 325 mg PO DAILY #30 tabs 04/30/24 metoprolol tartrate 25 mg tablet 25 mg PO BID@0900,2100 #60 tabs 04/30/24 Allergies Allergy/AdvReac Type Severity Reaction Status Date / Time lidocaine Allergy Unknown Unknown Verified 06/03/24 11:17 codeine Allergy ALGY-Rash Verified 06/03/24 11:17 hydromorphone Allergy ADR-Itching Verified 06/03/24 11:17 oxycodone Allergy ADR-Itching Verified 06/03/24 11:17 oxytetracycline (From Allergy ALGY-Rash Verified 06/03/24 11:17 Terramycin) [id number] Reductase Allergy ADR-Muscle Verified 06/03/24 11:17 Inhibitor Pain tramadol Allergy ADR-Itching Verified 06/03/24 11:17 Review of Systems Const: Denies: fever(s) or chills Card: Denies: chest pain Resp: Denies: dyspnea GI: Denies: abdominal pain : Denies: dysuria, urinary frequency or urinary urgency Musc: Reports: joint pain; Denies: neck pain or back pain Skin/Breast: Denies: rash PFSH ED PFSH: Medical History Hypertension CAD (coronary artery disease) Surgical History H/O shoulder replacement Social History Smoking and tobacco/nicotine status: former use of tobacco/nicotine Physical Exam Const: COMMON NORMALS: no acute distress GENERAL APPEARANCE: cooperative and comfortable ORIENTATION/CONSCIOUSNESS: Yes awake, Yes oriented to person, Yes oriented to place and Yes oriented to time HENMT: COMMON NORMALS: normocephalic, atraumatic and hearing grossly normal bilaterally HEAD & SCALP: normocephalic and atraumatic Resp: COMMON NORMALS: normal respiratory effort, No retractions, No use of accessory muscles and clear to auscultation bilaterally AUSCULTATION: clear to auscultation bilaterally Cardio: COMMON NORMALS: regular rate, regular rhythm and No murmurs present (Cardio) RATE: regular rate RHYTHM: regular rhythm GI: COMMON NORMALS: Soft to palpation and No hepatosplenomegaly present AUSCULTATION: Yes normoactive bowel sounds PALPATION: Yes Soft to palpation, No Tenderness to palpation present (GI), No Guarding due to palpation present (GI) and Yes No hepatosplenomegaly present Extremity: COMMON NORMALS: normal to inspection, capillary refill normal, no clubbing, cyanosis or edema, no calf tenderness and no pedal edema Neuro: SENSORIUM/ORIENTATION: Yes oriented to person, Yes oriented to place and Yes oriented to time Skin: COMMON NORMALS: no rashes or lesions noted GENERAL SKIN EXAM: no rashes or lesions noted Course Vital Signs: Vital signs: Vital Signs Temperature 97.9 F 06/03/24 09:55 Pulse Rate 79 06/03/24 14:49 Respiratory Rate 16 06/03/24 16:06 Blood Pressure 117/71 06/03/24 11:27 Pulse Oximetry 95 06/03/24 14:49 Oxygen Delivery Me thod Room Air 06/03/24 14:49 MDM - Fall Medical Decision Making Left femoral neck fracture. Patient is diabetic blood sugars significantly elevated he was given IV fluids and 15 units of regular insulin he not taken his long-term insulin this morning prior to his fall. Ketones negative he has normal anion gap. Discussed with hospitalist and with surgery. Did advise surgery nurses when they came to take patient to surgery about the blood glucose the importance of following up on it since we had given him insulin. They will pass this information on to anesthesia team. CT of the head and neck and left elbow x-ray are all negative. Medical Records I reviewed the patient's medical records. Lab Data I reviewed the patient's lab results. 06/03/24 08:38 06/03/24 14:48 Radiology Impressions Hip/Pelvis X-Ray 06/03/24 08:06 IMPRESSION: 1. 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 Cervical Spine CT 06/03/24 08:17 IMPRESSION: 1. No acute cervical spine fracture. 2. 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 3. Prior C5-6 and C6-7 fusion is complete and stable. Chest X-Ray 06/03/24 08:17 IMPRESSION: 1. No acute cardiopulmonary finding. Head CT 06/03/24 08:17 IMPRESSION: 1. No acute intracranial hemorrhage or edema. 2. Moderate cerebral atrophy and small vessel ischemic changes are chronic. 3. Mild soft tissue contusion LEFT frontal scalp. No fracture. Elbow X-Ray 06/03/24 08:18 IMPRESSION: 1. No fracture or other significant finding. Laboratory Results WBC 6.10 10^3/uL (3.29-11.43) 06/03/24 08:38 RBC 5.00 10^6/uL (3.85-5.65) 06/03/24 08:38 Hgb 13.70 g/dL (11.27-16.99) 06/03/24 08:38 Hct 40.5 % (37-53) 06/03/24 08:38 MCV 81.0 fl (82-101) L 06/03/24 08:38 MCH 27.4 pg (27-33) 06/03/24 08:38 MCHC 33.8 g/dL (30-55) 06/03/24 08:38 RDW 14.1 % (12.1-15.1) 06/03/24 08:38 Plt Count 297 10^3/cmm (157-399) 06/03/24 08:38 MPV 11.4 fL (7.4-10.4) H 06/03/24 08:38 Neut % (Auto) 45.5 % 06/03/24 08:38 Lymph % (Auto) 39.3 % 06/03/24 08:38 [place] % (Auto) 13.0 % 06/03/24 08:38 Eos % (Auto) 1.3 % 06/03/24 08:38 Baso % (Auto) 0.7 % 06/03/24 08:38 Neut # (Auto) 2.78 10^3/uL (1.8-7.7) 06/03/24 08:38 Lymph # (Auto) 2.4 10^3/uL (0.8-4.8) 06/03/24 08:38 [place] # (Auto) 0.8 10^3/uL (0.2-0.9) 06/03/24 08:38 Eos # (Auto) 0.1 10^3/uL (0.0-0.8) 06/03/24 08:38 Baso # (Auto) 0.0 10^3/uL (0.0-0.1) 06/03/24 08:38 Nucleated RBC % (auto) 0 % 06/03/24 08:38 Nucleated RBCs # 0.0 /100WBC 06/03/24 08:38 Specimen Type Venous 06/03/24 10:52 Sample Site Not specified 06/03/24 10:52 [place] Test N/a 06/03/24 10:52 VBG pH 7.43 (7.32-7.42) H 06/03/24 10:52 VBG pCO2 39.5 mmHg (41-51) L 06/03/24 10:52 VBG pO2 < 17.0 mmHg (25-40) L 06/03/24 10:52 VBG HCO3 26.3 mmol/L (24-28) 06/03/24 10:52 VBG Base Excess 1.9 mmol/L (-3.0-3.0) 06/03/24 10:52 VBG Hematocrit 43.0 % (42-52) 06/03/24 10:52 O2 Delivery Device Not Reportable 06/03/24 10:52 Brick Tender ID glc 06/03/24 10:52 Sodium 128 mmol/L (136-145) L 06/03/24 08:38 Potassium 4.2 mmol/L (3.5-5.1) 06/03/24 08:38 Chloride 89 mmol/L (98-107) L 06/03/24 08:38 Carbon Dioxide 21 mmol/L (22-29) L 06/03/24 08:38 Anion Gap 22.2 (5-19) H 06/03/24 08:38 BUN 22 mg/dL (8-23) 06/03/24 08:38 Creatinine 1.4 mg/dL (0.7-1.2) H 06/03/24 08:38 GFR Calculation Not Reportable 06/03/24 08:38 Glucose 562 mg/dL (65-115) H* 06/03/24 08:38 POC Glucose 245 mg/dL (70-110) H 06/03/24 13:24 Calculated Osmolality 295 mOsm/kg (285-295) 06/03/24 08:38 Calcium 9.5 mg/dL (8.5-10.5) 06/03/24 08:38 Total Bilirubin 1.5 mg/dL (0.15-1.2) H 06/03/24 08:38 AST 16 U/L (0-40) 06/03/24 08:38 ALT 10 U/L (0-41) 06/03/24 08:38 Alkaline Phosphatase 103 U/L (40-130) 06/03/24 08:38 Total Protein 7.2 g/dL (6.6-8.7) 06/03/24 08:38 Albumin 3.9 g/dL (3.5-5.2) 06/03/24 08:38 Globulin 3.3 g/dL (1.3-4.6) 06/03/24 08:38 Urine Color Yellow (Yellow) 06/03/24 09:23 Urine Appearance Clear (CLEAR) 06/03/24 09:23 Urine pH 5.5 (5-7) 06/03/24 09:23 Ur Specific [place] 1.038 (1.005-1.030) H 06/03/24 09:23 Urine Protein Negative (Negative) 06/03/24 09:23 Urine Glucose (UA) 3+ (Normal) H 06/03/24 09:23 Urine Ketones 1+ (Negative) H 06/03/24 09:23 Urine Blood Negative (Negative) 06/03/24 09:23 Urine Nitrate Negative (Negative) 06/03/24 09:23 Urine Bilirubin Negative (Negative) 06/03/24 09:23 Urine Urobilinogen 1.0 mg/dL (Negative) 06/03/24 09:23 Ur Leukocyte Esterase Negative (Negative) 06/03/24 09:23 Amorphous Sediment Not Reportable 06/03/24 09:23 Serum Ketones Negative (Negative) 06/03/24 08:38 All radiology interpretation(s) finalized by discharge Discharge Plan Discharge Patient Disposition: Admitted As Inpatient Admit Provider: Dheeraj Contreras Clinical Impression: Closed left hip fracture, Diabetes, type I, CAD (coronary artery disease), Hyperglycemia Condition: Stable Coding Level of Care Code ED 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
[2024-06-03] MEDS: morphine 4 mg/mL SDV 1 mL IVP (08:41)
[2024-06-03] MEDS: ondansetron 2 mg/ML SDV 2 mL 4 MG IVP (08:42)
[2024-06-03 08:46] LABS: Basophils % 0.7 %; Eosinophils # 0.1 10^3/uL (0.0-0.8); Eosinophils % 1.3 %; Hematocrit 40.5 % (37-53); Lymphocytes # 2.4 10^3/uL (0.8-4.8); Lymphocytes % 39.3 %; Mean Corpuscular HGB Conc 33.8 g/dL (30-55); Mean Corpuscular Hemoglobin 27.4 pg (27-33); Mean Platelet Volume 11.4 fL (7.4-10.4); Monocytes # 0.8 10^3/uL (0.2-0.9); Neutrophils # 2.78 10^3/uL (1.8-7.7); Neutrophils % 45.5 %; Nucleated Red Blood Cells % 0 %; Platelet Count 297 10^3/cmm (157-399); Red Cell Distribution Width 14.1 % (12.1-15.1)
--- NOTE | 2024-06-03 08:47 | PC.PHAR ---
patient is [place], sent fax at 8:15am
[2024-06-03 09:04] LABS: Alanine Aminotransferase 10 U/L (0-41); Albumin Level 3.9 g/dL (3.5-5.2); Alkaline Phosphatase 103 U/L (40-130); Anion Gap 22.2 (5-19); Aspartate Amino Transferase 16 U/L (0-40); Blood Urea Nitrogen 22 mg/dL (8-23); Calcium 9.5 mg/dL (8.5-10.5); Carbon Dioxide 21 mmol/L (22-29); Chloride 89 mmol/L (98-107); Creatinine Clr Calc Pharmacy 49.3558; Globulin 3.3 g/dL (1.3-4.6); Osmolality Calculated 295 mOsm/kg (285-295); Potassium 4.2 mmol/L (3.5-5.1); Sodium 128 mmol/L (136-145); Total Bilirubin 1.5 mg/dL (0.15-1.2); Total Protein 7.2 g/dL (6.6-8.7)
[2024-06-03 09:25] LABS: Glucose 562 mg/dL (65-115)
[2024-06-03 09:25] LABS: Add Urine Microscopic? NO
[2024-06-03 09:29] LABS: Bilirubin Urine Negative (Negative); Blood Urine Negative (Negative); Glucose Urine UA 3+ (Normal); Ketones Urine 1+ (Negative); Leukocyte Esterase Urine Negative (Negative); Nitrate Urine Negative (Negative); Protein Urine Negative (Negative); Urine Appearance Clear (CLEAR); Urine Color Yellow (Yellow); pH Urine 5.5 (5-7)
[2024-06-03] MEDS: insulin regular-human 100 units/1 mL 15 UNIT IVP (09:41)
[2024-06-03] MEDS: sodium chloride 0.9% 500 ML 999 ML IV (09:43)
[2024-06-03 10:08] LABS: Specific Gravity, Urine 1.038 (1.005-1.030)
[2024-06-03 10:09] LABS: Charge for UA Resulting for Rev
[2024-06-03 10:17] LABS: Ketone (Acetest) Serum Negative (Negative)
--- NOTE | 2024-06-03 10:17 | ANES.PREANE2 ---
Pre-Anesthetic Assessment Height/Weight: Height 1.96 m Weight 88.451 kg Temp Pulse Resp BP Pulse Ox O2 Del Method 97.6 F 70 16 150/91 97 Room Air 06/03/24 08:04 06/03/24 09:49 06/03/24 09:49 06/03/24 09:49 06/03/24 09:49 06/03/24 08:04 Operation Date: 06/03/24 12:00 Proposed Procedures p Hemiarthroplasty Hip(Left) - Manuel Love, DO Familial anesthetic complications: None Last intake: > 8 hrs Social No alcohol Exam alert, oriented x 3, clear to auscultation bilaterally and regular rate & rhythm Airway Mallampati: Class II Dentition: false CV/HEM Stable Angina, Coronary Artery Disease (mild 30% - recent cath for unstable angina, but no significant cad and no intervention) and Hypertension Metabolic Diabetes Mellitus Anesthetic Plan ASA status: 3 Anesthesia: General Risk of > 500 ml blood loss (7ml/kg in children): No Medications/Allergies Home Medications ?Medication ?Instructions ?Recorded ?Confirmed ?Last Taken ?Type pantoprazole 40 mg tablet,delayed 40 mg PO QAM 12/11/23 06/03/24 04/29/24 07:00 History release (Protonix) alirocumab 75 mg/mL subcutaneous 75 mg SUBCUT Q14D #2 mL 12/23/23 06/03/24 Unknown Rx pen injector (Praluent Pen) cholecalciferol (vitamin D3) 10 10 mcg PO DAILY 03/29/24 06/03/24 04/29/24 07:00 History mcg (400 unit) capsule (Vitamin D3) insulin aspart U-100 100 unit/mL See Rx Instructions .Route .COMPLEX 03/29/24 06/03/24 04/29/24 History (3 mL) subcutaneous pen lisinopril 20 mg tablet 20 mg PO DAILY 03/29/24 06/03/24 04/29/24 History tamsulosin 0.4 mg capsule 0.4 mg PO DAILY 03/29/24 06/03/24 04/28/24 20:00 History aspirin 325 mg tablet 325 mg PO DAILY #30 tabs 04/30/24 06/03/24 Unknown Rx metoprolol tartrate 25 mg tablet 25 mg PO BID@0900,2100 #60 tabs 04/30/24 06/03/24 Unknown Rx nifedipine 30 mg tablet,extended 30 mg PO DAILY 06/03/24 06/03/24 Unknown History release Allergies Allergy/AdvReac Type Severity Reaction Status Date / Time lidocaine Allergy Unknown Unknown Unverified 04/29/24 14:17 codeine Allergy ALGY-Rash Verified 03/31/24 14:47 hydromorphone Allergy ADR-Itching Verified 03/31/24 14:47 oxycodone Allergy ADR-Itching Verified 03/31/24 14:47 oxytetracycline (From Allergy ALGY-Rash Verified 03/31/24 14:47 Terramycin) [place]-DXD-HyF Reductase Allergy ADR-Muscle Verified 04/30/24 02:40 Inhibitor Pain tramadol Allergy ADR-Itching Verified 03/31/24 14:47 [facility] Anesthesia Medical History Hypertension CAD (coronary artery disease) Surgical History H/O shoulder replacement Social History Smoking and tobacco/nicotine status: former use of tobacco/nicotine Data Anesthesia 06/03/24 08:38 06/03/24 08:38 Short CBC 06/03/24 Range/Units 08:38 WBC 6.10 (3.29-11.43) 10^3/uL Hgb 13.70 (11.27-16.99) g/dL Hct 40.5 (37-53) % MCV 81.0 L (82-101) fl Plt Count 297 (157-399) 10^3/cmm Neut % (Auto) 45.5 % Neut # (Auto) 2.78 (1.8-7.7) 10^3/uL BMP 06/03/24 08:38 Sodium 128 L Potassium 4.2 Chloride 89 L Carbon Dioxide 21 L BUN 22 Creatinine 1.4 H Glucose 562 H* Calcium 9.5 Liver Function 06/03/24 Range/Units 08:38 Total Bilirubin 1.5 H (0.15-1.2) mg/dL AST 16 (0-40) U/L ALT 10 (0-41) U/L Alkaline Phosphatase 103 (40-130) U/L Albumin 3.9 (3.5-5.2) g/dL Urine 06/03/24 Range/Units 09:23 Urine Color Yellow (Yellow) Urine Appearance Clear (CLEAR) Urine pH 5.5 (5-7) Ur Specific Riner 1.038 H (1.005-1.030) Urine Protein Negative (Negative) Urine Glucose (UA) 3+ H (Normal) Urine Ketones 1+ H (Negative) Urine Nitrate Negative (Negative) Urine Bilirubin Negative (Negative) Ur Leukocyte Esterase Negative (Negative) Cardiac Studies: Echocardiogram 04/29/24
[2024-06-03] MEDS: insulin regular-human 100 units/1 mL 10 UNIT IVP (10:57)
[2024-06-03 11:00] LABS: Base Excess VBG 1.9 mmol/L (-3.0-3.0); Blood Gas Operator Identificat glc; Blood Gas Sample Site Not specified; Blood Gas Sample Type Venous; HCO3 VBG 26.3 mmol/L (24-28); PCO2 VBG 39.5 mmHg (41-51); PO2 VBG < 17.0 mmHg (25-40); pH VBG 7.43 (7.32-7.42)
--- NOTE | 2024-06-03 11:21 | PM.CONSULT ---
Providers/Reason For Consult Consulting Physician/Specialty*: Hospitalist Reason for Consult*: Left hip fracture Attending Physician: Manuel Love DO Primary Care Provider: VERONICA Herrera History of Present Illness History of Present Illness Abdirahman Carson is a 83 year old male sustained a left femoral neck fracture after ground-level fall. Currently his blood sugars are in the 500s hospitalist is working to get these done prior to surgery. Review of Systems Const: Denies: fever(s) or chills Card: Denies: chest pain Resp: Denies: dyspnea GI: Denies: abdominal pain : Denies: dysuria, urinary frequency or urinary urgency Musc: Reports: joint pain; Denies: neck pain or back pain Skin/Breast: Denies: rash Medications/Allergies Home Medications ?Medication ?Instructions ?Recorded ?Confirmed ?Last Taken ?Type pantoprazole 40 mg tablet,delayed 40 mg PO QAM 12/11/23 06/03/24 04/29/24 07:00 History release (Protonix) alirocumab 75 mg/mL subcutaneous 75 mg SUBCUT Q14D #2 mL 12/23/23 06/03/24 Unknown Rx pen injector (Praluent Pen) cholecalciferol (vitamin D3) 10 10 mcg PO DAILY 03/29/24 06/03/24 04/29/24 07:00 History mcg (400 unit) capsule (Vitamin D3) insulin aspart U-100 100 unit/mL See Rx Instructions .Route .COMPLEX 03/29/24 06/03/24 04/29/24 History (3 mL) subcutaneous pen lisinopril 20 mg tablet 20 mg PO DAILY 03/29/24 06/03/24 04/29/24 History tamsulosin 0.4 mg capsule 0.4 mg PO DAILY 03/29/24 06/03/24 04/28/24 20:00 History aspirin 325 mg tablet 325 mg PO DAILY #30 tabs 04/30/24 06/03/24 Unknown Rx metoprolol tartrate 25 mg tablet 25 mg PO BID@0900,2100 #60 tabs 04/30/24 06/03/24 Unknown Rx nifedipine 30 mg tablet,extended 30 mg PO DAILY 06/03/24 06/03/24 Unknown History release Allergies Allergy/AdvReac Type Severity Reaction Status Date / Time lidocaine Allergy Unknown Unknown Verified 06/03/24 11:17 codeine Allergy ALGY-Rash Verified 06/03/24 11:17 hydromorphone Allergy ADR-Itching Verified 06/03/24 11:17 oxycodone Allergy ADR-Itching Verified 06/03/24 11:17 oxytetracycline (From Allergy ALGY-Rash Verified 06/03/24 11:17 Terramycin) Jkqoewp-TRO-UsG Reductase Allergy ADR-Muscle Verified 06/03/24 11:17 Inhibitor Pain tramadol Allergy ADR-Itching Verified 06/03/24 11:17 PFSH Acute PFSH: Medical History Hypertension CAD (coronary artery disease) Surgical History H/O shoulder replacement Social History Smoking and tobacco/nicotine status: former use of tobacco/nicotine Vitals/I&O/Wt Last Vital Signs Temp 97.6 F 06/03/24 08:04 Pulse 70 06/03/24 09:49 Resp 16 06/03/24 09:49 BP 150/91 06/03/24 09:49 Pulse Ox 97 06/03/24 09:49 O2 Del Method Room Air 06/03/24 08:04 Weight last 48 hrs Weight 195 lb Physical Exam Narrative: Alert and oriented x 3 Head is normocephalic atraumatic Respirations are intact No evidence of any rashes or infection 5/5 strength in bilateral upper and lower extremities Sensation intact in all extremities Left leg shortened and externally rotated Urinary Catheter Management: Daniel: Cath Placed During This Visit: yes Urinary Catheter Date of Insertion: 06/03/24 Urinary Catheter Time of Insertion: 10:15 Data 06/03/24 08:38 06/03/24 08:38 A&P Assessment and plan (1) Closed left hip fracture: Plan to do a left hip hemiarthroplasty. Qualifiers: Encounter type: initial encounter Qualified Code(s): S72.002A - Fracture of unspecified part of neck of left femur, initial encounter for closed fracture PDMP PDMP Reviewed: Not Reviewed Coding Level of Care Code Acute Code for [facility] Fwd Diagnoses Closed fracture of left hip, initial encounter S72.002A Encounter type: initial encounter
[2024-06-03 11:27] LABS: Glucose Point of Care 530 mg/dL (70-110)
[2024-06-03 11:27] LABS: Glucose Point of Care 392 mg/dL (70-110)
[2024-06-03] MEDS: ceFAZolin 2,000 mg SDV 2000 MG IVP (11:54)
[2024-06-03 11:56] LABS: Glucose Point of Care 384 mg/dL (70-110)
--- NOTE | 2024-06-03 12:43 | PM.HP ---
Providers/Chief Complaint Primary Care Provider: VERONICA Herrera Chief Complaint: FALL L HIP PAIN History of Present Illness Pleasant 83-year-old gentleman, hard of hearing, with history of diabetes, on insulin pump, following with primary provider at the [place], had seen production tester once here. Did not bring his pump. History of hypertension, CAD. He had a fall at home, reported mechanical, with finding of his hip fracture in the ER. He does report intermittently getting dizzy when standing up due to which she takes his lisinopril only intermittently. Denies chest pain or pressure. Denies pain or pressure with exertion. Denies shortness of breath with exertion. He is able to walk on flat ground without stopping to catch his breath. Review of Systems Const: Denies: fever(s), chills, body aches or malaise ENMT: Denies: throat pain Card: Denies: chest pain, edema, pre-syncope or dyspnea on exertion Resp: Denies: dyspnea, productive cough, change in phlegm color or hemoptysis GI: Denies: abdominal pain, nausea, vomiting, diarrhea, constipation, hematochezia or melena : Denies: flank pain, difficulty urinating, urinary frequency or hematuria Musc: Reports: joint pain (Right hip); Denies: back pain, joint swelling or joint redness Skin/Breast: Denies: rash or new lesions Neuro: Denies: headache(s) or confusion Medications/Allergies Home Medications ?Medication ?Instructions ?Recorded ?Confirmed ?Last Taken ?Type pantoprazole 40 mg tablet,delayed 40 mg PO QAM 12/11/23 06/03/24 04/29/24 07:00 History release (Protonix) alirocumab 75 mg/mL subcutaneous 75 mg SUBCUT Q14D #2 mL 12/23/23 06/03/24 Unknown Rx pen injector (Praluent Pen) cholecalciferol (vitamin D3) 10 10 mcg PO DAILY 03/29/24 06/03/24 04/29/24 07:00 History mcg (400 unit) capsule (Vitamin D3) insulin aspart U-100 100 unit/mL See Rx Instructions .Route .COMPLEX 03/29/24 06/03/24 04/29/24 History (3 mL) subcutaneous pen lisinopril 20 mg tablet 20 mg PO DAILY 03/29/24 06/03/2425 History tamsulosin 0.4 mg capsule 0.4 mg PO DAILY 03/29/24 06/03/24 04/28/24 20:00 History aspirin 325 mg tablet 325 mg PO DAILY #30 tabs 04/30/24 06/03/24 Unknown Rx metoprolol tartrate 25 mg tablet 25 mg PO BID@0900,2100 #60 tabs 04/30/24 06/03/24 Unknown Rx nifedipine 30 mg tablet,extended 30 mg PO DAILY 06/03/24 06/03/24 Unknown History release Allergies Allergy/AdvReac Type Severity Reaction Status Date / Time lidocaine Allergy Unknown Unknown Verified 06/03/24 11:17 codeine Allergy ALGY-Rash Verified 06/03/24 11:17 hydromorphone Allergy ADR-Itching Verified 06/03/24 11:17 oxycodone Allergy ADR-Itching Verified 06/03/24 11:17 oxytetracycline (From Allergy ALGY-Rash Verified 06/03/24 11:17 Terramycin) Zajekox-LTY-JuH Reductase Allergy ADR-Muscle Verified 06/03/24 11:17 Inhibitor Pain tramadol Allergy ADR-Itching Verified 06/03/24 11:17 PFSH Acute PFSH: Medical History Hypertension CAD (coronary artery disease) Surgical History H/O shoulder replacement Social History Smoking and tobacco/nicotine status: former use of tobacco/nicotine Vitals/I&O/Wt Last Vital Signs Temp 97.9 F 06/03/24 09:55 Pulse 73 06/03/24 11:27 Resp 18 06/03/24 11:27 BP 117/71 06/03/24 11:27 Pulse Ox 93 06/03/24 11:27 O2 Del Method Room Air 06/03/24 11:27 Weight last 48 hrs Weight 88.451 kg Physical Exam Narrative: Moderately hard of hearing. Const: COMMON NORMALS: patient oriented x3 and alert GENERAL APPEARANCE: cooperative ORIENTATION/CONSCIOUSNESS: Yes awake HENMT: COMMON NORMALS: oropharynx normal Neck/C-Spine: COMMON NORMALS: no JVD Resp: COMMON NORMALS: normal respiratory effort and clear to auscultation bilaterally AUSCULTATION: clear to auscultation bilaterally Cardio: COMMON NORMALS: no JVD, regular rhythm, S1 normal heart sound present, S2 normal heart sound present and No murmurs present (Cardio) RHYTHM: regular rhythm HEART SOUNDS: S1 normal heart sound present and S2 normal heart sound present GI: COMMON NORMALS: Normal to inspection, nondistended, normoactive bowel sounds present, Soft to palpation and non-tender PALPATION: Yes Soft to palpation Extremity: COMMON NORMALS: no joint enlargement and no pedal edema Neuro: COMMON NORMALS: patient oriented x3 and moves all extremities SENSORIUM/ORIENTATION: Yes alert Skin: COMMON NORMALS: no rashes or lesions noted GENERAL SKIN EXAM: no rashes or lesions noted Urinary Catheter Management: Daniel: Cath Placed During This Visit: yes Urinary Catheter Date of Insertion: 06/03/24 Urinary Catheter Time of Insertion: 10:15 Data 06/03/24 08:38 06/03/24 08:38 A&P Assessment and plan (1) Closed left hip fracture: Hip pain after fall. Reported mechanical fall, although on additional questioning he does state that he gets lightheaded when standing up frequently, due to this he has been taking his antihypertensives only intermittently. Will benefit from orthostatic blood pressures once able to have them done. Reviewed vitals, CBC, VBG requested, reviewed, CMP, UA, serum ketones, EKG, hip x-ray, C-spine x-ray, chest x-ray, head CT, elbow x-ray. Reviewed ER provider note, discussed with ER provider. With severe hyperglycemia, received regular insulin IV, dose repeated, blood sugar with improvement down to 384. With severity of hyperglycemia, he also has not brought his insulin pump, may initially admitted to ICU to help regulate severe hyperglycemia with insulin drip. Ketones in the urine, serum ketones negative, VBG without acidemia. Received fluid resuscitation. Will request recheck chemistry for tonight. Monitor blood glucose. Discussed with anesthesia. Qualifiers: Encounter type: initial encounter Qualified Code(s): S72.002A - Fracture of unspecified part of neck of left femur, initial encounter for closed fracture (2) Hyperglycemia: Severe hyperglycemia, up as high as 562. Received 10 units of regular insulin, on recheck still hyperglycemic, additional 10 units given, and recheck with improvement to 384. Urinalysis returned with 1+ ketones, serum ketones checked, negative. VBG requested, not acidemic to suggest active ketoacidosis. Will add Lantus 15 units nightly, slight scale insulin. Plan Hyponatremia: Sodium 128 due to severe hyperglycemia. Continue FMS glucose. DM1: Normally on insulin pump, appears to get variable basal infusion placed during the last visit in December 2023 close to 20 units a day. He does not know his current rate. He did not bring his pump with him. Will give him insulin Lantus 15 units, sliding scale insulin. Monitor POC glucose. Monitor for risk of hypo-, hyperglycemia. HTN: Takes his lisinopril only intermittently due to feeling lightheaded when he stands up. Would benefit from assessment of orthostatic blood pressures. PDMP PDMP Reviewed: Not Reviewed Attestations Medical Necessity Statement*: Admission of over 2 midnights anticipated for assessment management of trauma with hip fracture, underlying diabetes with severe hyperglycemia, additional comorbidities as above. Diagnoses Closed fracture of left hip, initial encounter S72.002A Encounter type: initial encounter Hyperglycemia R73.9
--- NOTE | 2024-06-03 13:24 | P.OP_ITS ---
Operative Report Date of procedure: June 03, 2024 Pre-op diagnosis: Left femoral neck fracture Post-op diagnosis: same Procedure done: Left hip hemiarthroplasty Surgeon: Manuel Love DO Estimated blood loss (mL): 200 Procedure: Left hip hemiarthroplasty Patient brought the operative suite after an G[place] was placed in the lateral decubitus position on his bed and well-padded. Patient's prepped and draped in also fashion. Skin incisions made over the lateral hip. IT band was split modified Ellis approach was used the abductors and capsule were taken down anteriorly. The femoral neck fracture was identified. Cell was used to complete the fracture. And then the femoral head was taken out. Femoral head measured 58 mm. Next tension was brought to the femur The box storage worker was used followed by the canal finder followed by the lateralizer. The canal was broached to 10 mm. A 10 mm stem from [employer] was inserted. Negative 4 neck length and a size 58 head. Hip was reduced felt to be stable range of motion. The abductors and capsule repaired the IT band and skin were closed in layered fashion with 0 Vicryl 2-0 Vicryl Monocryl suture. Sterile dressings were applied patient is transferred to the PACU in stable condition.
[2024-06-03 13:29] LABS: Glucose Point of Care 245 mg/dL (70-110)
[2024-06-03 14:28] LABS: Glucose Point of Care 256 mg/dL (70-110)
[2024-06-03 15:14] LABS: Anion Gap 17.2 (5-19); Blood Urea Nitrogen 20 mg/dL (8-23); Calcium 9.7 mg/dL (8.5-10.5); Carbon Dioxide 23 mmol/L (22-29); Chloride 98 mmol/L (98-107); Creatinine Clr Calc Pharmacy 57.5817; Glucose 213 mg/dL (65-115); Osmolality Calculated 289 mOsm/kg (285-295); Potassium 3.2 mmol/L (3.5-5.1); Sodium 135 mmol/L (136-145)
[2024-06-03] MEDS: sodium chloride 0.9% 1,000 ML 30 ML IV (15:42)
[2024-06-03] MEDS: fentaNYL 50 mcg/mL INJ 2mL IVP (16:06)
[2024-06-03 16:45] LABS: Glucose Point of Care 219 mg/dL (70-110)
[2024-06-03] MEDS: insulin lispro 100 unit/1 mL SUBCUT ×2 (17:13→22:17)
--- NOTE | 2024-06-03 17:19 | PC.NURSE ---
1523 -- Notified Dr. Contreras that patient had arrived from OR and current blood glucose is 256. 1628 -- Notified Dr. Contreras that the patient does not have current ICU orders and will need some if he wants patient to remain in ICU. Notified that I need orders for pain medication for this patient because the only pain medication orders present are the PACU orders from anesthesia. 1632 -- Dr. Contreras request blood glucose rechecked. Notified Dr. Contreras that blood glucose is currently 219. Order given to transfer to Med Surg. Reminded Dr. Contreras that pain medication orders are still needed for this patient.
[2024-06-03] MEDS: insulin glargine 100 units/1 mL 15 UNIT SUBCUT (21:19)
[2024-06-03 21:26] LABS: Glucose Point of Care 175 mg/dL (70-110)
[2024-06-03] MEDS: morphine 4 mg/mL SDV 1 mL 2 MG IVP (21:43)
[2024-06-04 02:53] LABS: Glucose Point of Care 225 mg/dL (70-110)
[2024-06-04 04:00] VITALS: BP 102/56; PULSE 95; RESP 17; TEMP 36.4; O2SAT 91
[2024-06-04 04:52] LABS: Basophils % 0.4 %; Eosinophils % 0.1 %; Hematocrit 35.5 % (37-53); Lymphocytes # 1.4 10^3/uL (0.8-4.8); Mean Corpuscular HGB Conc 32.4 g/dL (30-55); Mean Corpuscular Hemoglobin 27.7 pg (27-33); Mean Corpuscular Volume 85.5 fl (82-101); Mean Platelet Volume 11.7 fL (7.4-10.4); Monocytes # 1.2 10^3/uL (0.2-0.9); Neutrophils # 5.72 10^3/uL (1.8-7.7); Neutrophils % 68.1 %; Nucleated Red Blood Cells % 0 %; Platelet Count 199 10^3/cmm (157-399); Red Blood Count 4.15 10^6/uL (3.85-5.65); Red Cell Distribution Width 14.7 % (12.1-15.1)
[2024-06-04 05:28] LABS: Alanine Aminotransferase 10 U/L (0-41); Albumin Level 3.5 g/dL (3.5-5.2); Alkaline Phosphatase 76 U/L (40-130); Anion Gap 17.3 (5-19); Aspartate Amino Transferase 31 U/L (0-40); Blood Urea Nitrogen 20 mg/dL (8-23); Calcium 9.1 mg/dL (8.5-10.5); Carbon Dioxide 22 mmol/L (22-29); Chloride 100 mmol/L (98-107); Creatinine Clr Calc Pharmacy 58.6989; Globulin 2.8 g/dL (1.3-4.6); Glucose 249 mg/dL (65-115); Magnesium 1.5 mg/dL (1.7-2.3); Osmolality Calculated 291 mOsm/kg (285-295); Potassium 4.3 mmol/L (3.5-5.1); Sodium 135 mmol/L (136-145); Total Bilirubin 1.5 mg/dL (0.15-1.2); Total Protein 6.3 g/dL (6.6-8.7)
[2024-06-04 06:43] VITALS: RESP 16; O2SAT 92
[2024-06-04] MEDS: morphine 4 mg/mL SDV 1 mL 2 MG IVP (06:43)
[2024-06-04 06:53] LABS: Glucose Point of Care 247 mg/dL (70-110)
[2024-06-04 07:15] VITALS: BP 107/63; PULSE 95; RESP 16; TEMP 36.6; O2SAT 96
[2024-06-04] MEDS: insulin lispro 100 unit/1 mL SUBCUT ×4 (08:01→20:53)
[2024-06-04 11:22] VITALS: BP 132/73; PULSE 64; RESP 16; TEMP 37.1; O2SAT 95
[2024-06-04 11:45] LABS: Glucose Point of Care 288 mg/dL (70-110)
[2024-06-04] MEDS: acetaminophen 325 mg Tablet 650 MG PO (11:56)
--- NOTE | 2024-06-04 13:26 | P.PN_ITS ---
Subjective 2 Subjective: Patient is in bed complaining of pain in his buttock area. Vitals/I&O/Wt Last Vital Signs Temp 98.7 F 06/04/24 11:22 Pulse 64 06/04/24 11:22 Resp 16 06/04/24 11:22 BP 132/73 06/04/24 11:22 Pulse Ox 95 06/04/24 11:22 O2 Del Method Room Air 06/04/24 11:22 06/03/24 06/04/24 06/04/24 22:59 06:59 14:59 Intake Total 1970 / 1970 851.5 / 851.5 Output Total 490 / 490 150 / 640 Balance 1480 / 1480 -150 / 1330 851.5 / 851.5 Weight last 48 hrs Weight 204 lb 8 oz Weight 196 lb 3.382 oz Weight 195 lb Physical Exam 2 Narrative: Patient has good strength in his lower leg by 5 strength dorsiflexion plantarflexion of the left foot sensation intact dressing clean dry intact Urinary Catheter Management: Daniel: Cath Placed During This Visit: yes, but has since been removed by the nurse Reason for Continuing Indwelling Catheter: Decision to DC Catheter Urinary Catheter Date of Insertion: 06/03/24 Urinary Catheter Time of Insertion: 10:15 Date Urinary Catheter Removed: 06/04/24 Time Urinary Catheter Discontinued: 06:55 Data 06/04/24 04:38 06/04/24 04:38 A&P Assessment and plan (1) Closed left hip fracture: Postop day 1 left hip hemiarthroplasty Up with physical therapy Aspirin for DVT prophylaxis Qualifiers: Encounter type: initial encounter Qualified Code(s): S72.002A - Fracture of unspecified part of neck of left femur, initial encounter for closed fracture PDMP PDMP Reviewed: Not Reviewed Attestations 2 Medical Necessity Statement*: Per primary service Coding Level of Care Code Acute Code for [facility] Fwd Diagnoses Closed fracture of left hip, initial encounter S72.002A Encounter type: initial encounter
[2024-06-04 15:26] VITALS: BP 94/57; PULSE 89; RESP 16; TEMP 37.1; O2SAT 96
[2024-06-04 16:40] LABS: Glucose Point of Care 316 mg/dL (70-110)
--- NOTE | 2024-06-04 17:23 | P.PN_ITS ---
Subjective 2 Subjective: No acute complaints today. Patient was in pain today therefore unable to participate with PT for sufficient time. Blood sugars are well-controlled. Medications: Reviewed: Yes Vitals/I&O/Wt Last Vital Signs Temp 98.8 F 06/04/24 15:26 Pulse 89 06/04/24 15:26 Resp 16 06/04/24 15:26 BP 94/57 06/04/24 15:26 Pulse Ox 96 06/04/24 15:26 O2 Del Method Room Air 06/04/24 15:26 06/04/24 06/04/24 06/04/24 06:59 14:59 22:59 Intake Total 851.5 / 851.5 Output Total 150 / 640 Balance -150 / 1330 851.5 / 851.5 Weight last 48 hrs Weight 92.76 kg Weight 89 kg Weight 88.451 kg Physical Exam 2 Narrative: General: No acute distress, AO x3 HEENT: PERRLA, pupils bilaterally equal and reactive, pallors not present Chest: Normal vesicular breath sounds, no added sounds, equal good air entry bilaterally CVS: S1-S2 regular, no murmurs, no tachycardia, no gallops, no rubs Abdomen: Soft, nontender, no organomegaly, bowel sounds present Neuro: No focal deficits, no facial deformity, AO x3, power 5/5 in all limbs Urinary Catheter Management: Daniel: Cath Placed During This Visit: yes, but has since been removed by the nurse Reason for Continuing Indwelling Catheter: Decision to DC Catheter Urinary Catheter Date of Insertion: 06/03/24 Urinary Catheter Time of Insertion: 10:15 Date Urinary Catheter Removed: 06/04/24 Time Urinary Catheter Discontinued: 06:55 Data 06/04/24 04:38 06/04/24 04:38 A&P Assessment and plan (1) Closed left hip fracture: Hip pain after fall. Reported mechanical fall, although on additional questioning he does state that he gets lightheaded when standing up frequently, due to this he has been taking his antihypertensives only intermittently. Will benefit from orthostatic blood pressures once able to have them done. Reviewed vitals, CBC, VBG requested, reviewed, CMP, UA, serum ketones, EKG, hip x-ray, C- spine x-ray, chest x-ray, head CT, elbow x-ray. Reviewed ER provider note, discussed with ER provider. With severe hyperglycemia, received regular insulin IV, dose repeated, blood sugar with improvement down to 384. With severity of hyperglycemia, he also has not brought his insulin pump, may initially admitted to ICU to help regulate severe hyperglycemia with insulin drip. Ketones in the urine, serum ketones negative, VBG without acidemia. Received fluid resuscitation. Will request recheck chemistry for tonight. Monitor blood glucose. Discussed with anesthesia. Qualifiers: Encounter type: initial encounter Qualified Code(s): S72.002A - Fracture of unspecified part of neck of left femur, initial encounter for closed fracture (2) Hyperglycemia: Severe hyperglycemia, up as high as 562. Received 10 units of regular insulin, on recheck still hyperglycemic, additional 10 units given, and recheck with improvement to 384. Urinalysis returned with 1+ ketones, serum ketones checked, negative. VBG requested, not acidemic to suggest active ketoacidosis. Will add Lantus 15 units nightly, slight scale insulin. Plan Hyponatremia: Sodium 128 due to severe hyperglycemia. Continue FMS glucose. DM1: Normally on insulin pump, appears to get variable basal infusion placed during the last visit in December 2023 close to 20 units a day. He does not know his current rate. He did not bring his pump with him. Will give him insulin Lantus 15 units, sliding scale insulin. Monitor POC glucose. Monitor for risk of hypo-, hyperglycemia. HTN: Takes his lisinopril only intermittently due to feeling lightheaded when he stands up. Would benefit from assessment of orthostatic blood pressures. June 04, 2024 Patient's status post left hip hemiarthroplasty yesterday. States that he was in pain today therefore unable to participate with PT for a long time. Blood sugar is well-controlled. Continue morphine as needed for pain management. Add oral tramadol as an iv opiate alternative. Blood pressure ranging on the softer side of 100 systolic, continue to hold antihypertensives. Resume aspirin 325 mg p.o. daily which will also serve as DVT prophylaxis. PDMP PDMP Reviewed: Not Reviewed Attestations 2 Medical Necessity Statement*: Postop care, pain management Coding Level of Care Code Acute Code for [facility] Fwd Moderate MDM includes number and complexity of problems actively addressed during encounter, amount and/or complexity of data reviewed/ordered and described risk of complication, morbidity or mortality of management as documented Diagnoses Closed fracture of left hip, initial encounter S72.002A Encounter type: initial encounter Hyperglycemia R73.9
[2024-06-04 20:00] VITALS: BP 119/67; PULSE 96; RESP 16; TEMP 36.5; O2SAT 95
[2024-06-04 20:44] LABS: Glucose Point of Care 336 mg/dL (70-110)
[2024-06-04] MEDS: insulin glargine 100 units/1 mL 15 UNIT SUBCUT (20:53)
[2024-06-05] VITALS (9 sets, daily range): BP systolic 88–124; BP diastolic 48–69; PULSE 80–92; RESP 15–19; TEMP 36.7–37.2; O2SAT 90–98
[2024-06-05] MEDS: morphine 4 mg/mL SDV 1 mL 2 MG IVP (00:10)
[2024-06-05] MEDS: pantoprazole DR 40 mg Tablet PO (05:55)
[2024-06-05 06:03] LABS: Basophils % 0.3 %; Eosinophils % 0.2 %; Hematocrit 31.1 % (37-53); Lymphocytes # 1.9 10^3/uL (0.8-4.8); Lymphocytes % 19.9 %; Mean Corpuscular HGB Conc 32.8 g/dL (30-55); Mean Corpuscular Hemoglobin 27.3 pg (27-33); Mean Corpuscular Volume 83.4 fl (82-101); Mean Platelet Volume 12.3 fL (7.4-10.4); Monocytes # 1.7 10^3/uL (0.2-0.9); Monocytes % 17.7 %; Neutrophils # 5.96 10^3/uL (1.8-7.7); Neutrophils % 61.3 %; Nucleated Red Blood Cells % 0 %; Platelet Count 167 10^3/cmm (157-399); Red Blood Count 3.73 10^6/uL (3.85-5.65); Red Cell Distribution Width 14.6 % (12.1-15.1); White Blood Count 9.73 10^3/uL (3.29-11.43)
[2024-06-05 06:27] LABS: Alanine Aminotransferase 12 U/L (0-41); Alkaline Phosphatase 75 U/L (40-130); Aspartate Amino Transferase 47 U/L (0-40); Blood Urea Nitrogen 23 mg/dL (8-23); Calcium 8.5 mg/dL (8.5-10.5); Carbon Dioxide 22 mmol/L (22-29); Chloride 99 mmol/L (98-107); Glucose 218 mg/dL (65-115); Osmolality Calculated 282 mOsm/kg (285-295); Sodium 131 mmol/L (136-145); Total Bilirubin 1.5 mg/dL (0.15-1.2)
[2024-06-05 06:30] LABS: Glucose Point of Care 231 mg/dL (70-110)
[2024-06-05 06:31] LABS: Creatinine Clr Calc Pharmacy 47.3353
[2024-06-05] MEDS: aspirin 325 mg Tablet PO (07:48)
[2024-06-05] MEDS: acetaminophen 325 mg Tablet 650 MG PO ×2 (07:48→21:49)
[2024-06-05] MEDS: tamsulosin 0.4 mg Capsule PO (07:48)
[2024-06-05] MEDS: insulin lispro 100 unit/1 mL SUBCUT ×2 (07:49→11:41)
[2024-06-05 11:21] LABS: Glucose Point of Care 295 mg/dL (70-110)
--- NOTE | 2024-06-05 12:48 | P.PN_ITS ---
Subjective 2 Subjective: Patient is in the room with his son. Patient does not have his hearing aids and is difficult to communicate with translate through his son. Vitals/I&O/Wt Last Vital Signs Temp 98.9 F 06/05/24 11:32 Pulse 85 06/05/24 11:32 Resp 19 H 06/05/24 11:32 BP 90/49 06/05/24 11:32 Pulse Ox 97 06/05/24 11:32 O2 Del Method Room Air 06/05/24 11:32 06/04/24 06/05/24 06/05/24 22:59 06:59 14:59 Intake Total 120 / 971.5 360 / 360 Output Total 425 / 425 175 / 175 Balance 120 / 971.5 -425 / 546.5 185 / 185 Weight last 48 hrs Weight 208 lb 8 oz Weight 204 lb 8 oz Weight 196 lb 3.382 oz Physical Exam 2 Narrative: Wound is clean dry and intact Urinary Catheter Management: Daniel: Cath Placed During This Visit: yes, but has since been removed by the nurse Reason for Continuing Indwelling Catheter: Decision to DC Catheter Urinary Catheter Date of Insertion: 06/03/24 Urinary Catheter Time of Insertion: 10:15 Date Urinary Catheter Removed: 06/04/24 Time Urinary Catheter Discontinued: 06:55 Data 06/05/24 05:30 06/05/24 05:30 A&P Assessment and plan (1) Closed left hip fracture: Patient is postop day 2 left hip hemiarthroplasty Up with therapy Aspirin for DVT prophylaxis Discharge planning Qualifiers: Encounter type: initial encounter Qualified Code(s): S72.002A - Fracture of unspecified part of neck of left femur, initial encounter for closed fracture PDMP PDMP Reviewed: Not Reviewed Attestations 2 Medical Necessity Statement*: Per primary service Coding Level of Care Code Acute Code for Chg Fwd Diagnoses Closed fracture of left hip, initial encounter S72.002A Encounter type: initial encounter
--- NOTE | 2024-06-05 14:42 | XRR_ITS ---
PROCEDURE INFORMATION: Exam: XR Left Hip Exam date and time: 06/05/2024 2:53 PM Age: 83 years old Clinical indication: Hip pain; Left hip; Prior surgery; Surgery date: Post-operative (0-2 days); Post op lt hemiarthroplasty x 2 days ago; Difficulty ambulating; Swelling to lt lower extremity TECHNIQUE: Imaging protocol: Radiologic exam of the left hip. Views: 2 or 3 views hip with pelvis when performed. COMPARISON: CR XR hip LT 2-3V wo/w pel* [id number] 06/03/2024 8:09 AM FINDINGS: Bones/joints: Postoperative radiographs status post total left hip arthroplasty with components in expected position. Pelvic ring is grossly intact. Soft tissues: Postoperative soft tissue edema/air. XR/XR hip LT 2-3V wo/w pel* [id number] IMPRESSION: 1. Postoperative radiographs status post total left hip arthroplasty with components in expected position.
[2024-06-05] MEDS: sodium chloride 0.9% 1,000 ML 75 ML IV (15:22)
--- NOTE | 2024-06-05 15:53 | PC.NURSE ---
When getting pt up to transfer to chair, upon standing, this nurse noticed that patient's left hip had a noticeable deformity. Dr. Page was notified immediately and an order for left hip xray was ordered. X-ray's obtained. Patient resting in bed with call light in reach.
--- NOTE | 2024-06-05 16:39 | P.PN_ITS ---
Subjective 2 Subjective: Leukocytosis resolved patient attempted to get out of bed to walk with a walker, however was unable to continue due to pain at site. Blood pressure is borderline at 90/60 today. Additionally developing mild NUHA with creatinine up to 1.5. low sodium at 131. Medications: Reviewed: Yes Vitals/I&O/Wt Last Vital Signs Temp 98.0 F 06/05/24 15:52 Pulse 90 06/05/24 15:52 Resp 18 06/05/24 15:52 BP 109/66 06/05/24 15:52 Pulse Ox 98 06/05/24 15:52 O2 Del Method Room Air 06/05/24 15:52 06/05/24 06/05/24 06/05/24 06:59 14:59 22:59 Intake Total 600 / 600 Output Total 425 / 425 175 / 175 Balance -425 / 546.5 425 / 425 Weight last 48 hrs Weight 94.574 kg Weight 92.76 kg Physical Exam 2 Narrative: General: No acute distress, AO x3 HEENT: PERRLA, pupils bilaterally equal and reactive, pallors not present Chest: Normal vesicular breath sounds, no added sounds, equal good air entry bilaterally CVS: S1-S2 regular, no murmurs, no tachycardia, no gallops, no rubs Abdomen: Soft, nontender, no organomegaly, bowel sounds present Neuro: No focal deficits, no facial deformity, AO x3, power 5/5 in all limbs Urinary Catheter Management: Daniel: Cath Placed During This Visit: yes, but has since been removed by the nurse Reason for Continuing Indwelling Catheter: Decision to DC Catheter Urinary Catheter Date of Insertion: 06/03/24 Urinary Catheter Time of Insertion: 10:15 Date Urinary Catheter Removed: 06/04/24 Time Urinary Catheter Discontinued: 06:55 Data 06/05/24 05:30 06/05/24 05:30 A&P Assessment and plan (1) Closed left hip fracture: Hip pain after fall. Reported mechanical fall, although on additional questioning he does state that he gets lightheaded when standing up frequently, due to this he has been taking his antihypertensives only intermittently. Will benefit from orthostatic blood pressures once able to have them done. Reviewed vitals, CBC, VBG requested, reviewed, CMP, UA, serum ketones, EKG, hip x-ray, C- spine x-ray, chest x-ray, head CT, elbow x-ray. Reviewed ER provider note, discussed with ER provider. With severe hyperglycemia, received regular insulin IV, dose repeated, blood sugar with improvement down to 384. With severity of hyperglycemia, he also has not brought his insulin pump, may initially admitted to ICU to help regulate severe hyperglycemia with insulin drip. Ketones in the urine, serum ketones negative, VBG without acidemia. Received fluid resuscitation. Will request recheck chemistry for tonight. Monitor blood glucose. Discussed with anesthesia. Qualifiers: Encounter type: initial encounter Qualified Code(s): S72.002A - Fracture of unspecified part of neck of left femur, initial encounter for closed fracture (2) Hyperglycemia: Severe hyperglycemia, up as high as 562. Received 10 units of regular insulin, on recheck still hyperglycemic, additional 10 units given, and recheck with improvement to 384. Urinalysis returned with 1+ ketones, serum ketones checked, negative. VBG requested, not acidemic to suggest active ketoacidosis. Will add Lantus 15 units nightly, slight scale insulin. Plan Hyponatremia: Sodium 128 due to severe hyperglycemia. Continue FMS glucose. DM1: Normally on insulin pump, appears to get variable basal infusion placed during the last visit in December 2023 close to 20 units a day. He does not know his current rate. He did not bring his pump with him. Will give him insulin Lantus 15 units, sliding scale insulin. Monitor POC glucose. Monitor for risk of hypo-, hyperglycemia. HTN: Takes his lisinopril only intermittently due to feeling lightheaded when he stands up. Would benefit from assessment of orthostatic blood pressures. June 04, 2024 Patient's status post left hip hemiarthroplasty yesterday. States that he was in pain today therefore unable to participate with PT for a long time. Blood sugar is well-controlled. Continue morphine as needed for pain management. Add oral tramadol as an iv opiate alternative. Blood pressure ranging on the softer side of 100 systolic, continue to hold antihypertensives. Resume aspirin 325 mg p.o. daily which will also serve as DVT prophylaxis. June 05, 2024. Patient attempted to get out of bed, was motivated to walk with a walker, however thereafter stated he was in too much pain and sat back down. Blood pressure soft, 90/60. Mild hemoglobin drop at 10.6. Will recheck H&H. No dizziness or other syncopal symptoms. Creatinine mildly up at 1.5. Low sodium 131. Patient is clinically appearing to be dehydrated. Will start him on normal saline at 75 cc an hour. Continue as needed morphine for pain management.Tramadol was not ordered due to reported allergy. Chart notes additional allergies to oxycodone, hydromorphone, tramadol and lidocaine. Cannot use NSAIDs due to worsening kidney function. Limited with pain medication optimization due to multiple reported allergies. PDMP PDMP Reviewed: Not Reviewed Attestations 2 Medical Necessity Statement*: Start IV fluids, continued attempts at therapy Coding Level of Care Code Acute Code for Chg Fwd Diagnoses Closed fracture of left hip, initial encounter S72.002A Encounter type: initial encounter Hyperglycemia R73.9
[2024-06-05 16:43] LABS: Glucose Point of Care 334 mg/dL (70-110)
[2024-06-05 20:56] LABS: Glucose Point of Care 442 mg/dL (70-110)
[2024-06-05] MEDS: insulin glargine 100 units/1 mL 15 UNIT SUBCUT (21:49)
[2024-06-05] MEDS: insulin lispro 100 unit/1 mL 20 UNIT SUBCUT (21:49)
[2024-06-05 23:14] LABS: Glucose Point of Care 312 mg/dL (70-110)
--- NOTE | 2024-06-05 23:18 | PC.NURSE ---
Physician Notification [id number]: Dr Pineda notified about current blood glucose of 442. Informed physician that patient's sliding scale was discontinued today. Orders given to this nurse to give 20 units SUBCUT of Humalog now. Administered at 2149. Blood glucose rechecked at 2300, result of 312. Plan of care ongoing.
[2024-06-06] VITALS (7 sets, daily range): BP systolic 94–130; BP diastolic 56–74; PULSE 76–92; RESP 16–20; TEMP 36.4–37; O2SAT 94–98
[2024-06-06 00:24] LABS: Hematocrit 27.1 % (37-53)
[2024-06-06 02:32] LABS: Basophils % 0.2 %; Eosinophils # 0.1 10^3/uL (0.0-0.8); Eosinophils % 0.7 %; Hematocrit 27.3 % (37-53); Lymphocytes # 2.5 10^3/uL (0.8-4.8); Mean Corpuscular HGB Conc 33.7 g/dL (30-55); Mean Corpuscular Volume 83.2 fl (82-101); Mean Platelet Volume 11.7 fL (7.4-10.4); Monocytes # 1.4 10^3/uL (0.2-0.9); Monocytes % 16.9 %; Neutrophils # 4.48 10^3/uL (1.8-7.7); Neutrophils % 52.5 %; Nucleated Red Blood Cells % 0 %; Platelet Count 140 10^3/cmm (157-399); Red Blood Count 3.28 10^6/uL (3.85-5.65); Red Cell Distribution Width 14.6 % (12.1-15.1); White Blood Count 8.54 10^3/uL (3.29-11.43)
[2024-06-06 02:56] LABS: Alanine Aminotransferase 12 U/L (0-41); Albumin Level 2.6 g/dL (3.5-5.2); Alkaline Phosphatase 70 U/L (40-130); Anion Gap 13.8 (5-19); Aspartate Amino Transferase 41 U/L (0-40); Blood Urea Nitrogen 25 mg/dL (8-23); Carbon Dioxide 21 mmol/L (22-29); Chloride 99 mmol/L (98-107); Creatinine Clr Calc Pharmacy 54.6177; Globulin 2.9 g/dL (1.3-4.6); Glucose 148 mg/dL (65-115); Osmolality Calculated 277 mOsm/kg (285-295); Potassium 3.8 mmol/L (3.5-5.1); Sodium 130 mmol/L (136-145); Total Bilirubin 1.2 mg/dL (0.15-1.2); Total Protein 5.5 g/dL (6.6-8.7)
[2024-06-06] MEDS: sodium chloride 0.9% 1,000 ML 75 ML IV ×2 (04:34→17:14)
[2024-06-06] MEDS: pantoprazole DR 40 mg Tablet PO (05:57)
[2024-06-06 06:26] LABS: Glucose Point of Care 151 mg/dL (70-110)
[2024-06-06] MEDS: tamsulosin 0.4 mg Capsule PO (07:42)
[2024-06-06] MEDS: aspirin 325 mg Tablet PO (07:42)
[2024-06-06] MEDS: acetaminophen 325 mg Tablet 650 MG PO (07:42)
--- NOTE | 2024-06-06 09:40 | PC.CHAP ---
Pastoral Care Encounter/Spiritual Assessment Type of Contact [] Declined garnisher visit [] Patient/Family/Request visit [] Outpatient visit [] Follow-up visit [] Physician referral [] Code/Alert [x] Routine visit [] Staff referral [] Actively dying [] Patient sleeping [] Family support [] [] Out of room [] Palliative care [] [x] Receiving care in room [] Pre-surgical visit [] Trauma [] Long length of stay [] ICU visit [] Other: Relational/Emotional Strength [] Patient feels connected with others/family/visitors/staff [] Distress [] Loneliness/isolation [] Abandonment Spirituality of Patient [] Person of Katie [] Attends Restorationism of their Katie [] Believes in Prayer [] Reads Bible or Holiness materials [] There are Spiritual issues to be addressed Datastage Developer Interventions [x] Prayer [] Active listening [] Non-anxious presence [] Spiritual/emotional support [] Crisis/trauma care [] Spiritual counseling [] Bereavement support [] Provided bereavement packet [] Provided Bible/devotional materials [] Provided toy/stuffed animal, coloring book to patient or family member [] Provided Communion [] Anointing/[place] [] Salvation [] Completed spiritual assessment [] Other: Impact on Illness or Injury [] Angry [] Fearful [] Anxious [] Often cries [] Exhaustion [] Unable to work [] Unable to attend hindu [] Unable to walk/stand [] Unable to read [] Unable to drive [] Unable to eat/drink [] Unable to sleep [] Unable to be with family [] Patient intubated [] Other: Summary Time spent with patient
[2024-06-06 11:28] LABS: Glucose Point of Care 406 mg/dL (70-110)
[2024-06-06] MEDS: morphine 4 mg/mL SDV 1 mL 1 MG IVP (11:56)
[2024-06-06] MEDS: insulin lispro 100 unit/1 mL SUBCUT ×3 (11:56→20:40)
--- NOTE | 2024-06-06 14:50 | P.PN_ITS ---
Vitals/I&O/Wt Last Vital Signs Temp 98.2 F 06/06/24 12:00 Pulse 89 06/06/24 12:00 Resp 20 H 06/06/24 12:00 BP 126/71 06/06/24 12:00 Pulse Ox 97 06/06/24 12:00 O2 Del Method Room Air 06/06/24 12:00 06/05/24 06/06/24 06/06/24 22:59 06:59 14:59 Intake Total 240 / 840 1000 / 1840 600 / 600 Output Total 250 / 425 500 / 925 375 / 375 Balance -10 / 415 500 / 915 225 / 225 Weight last 48 hrs Weight 92.079 kg Weight 94.574 kg Physical Exam 2 Narrative: General: No acute distress, AO x3 HEENT: PERRLA, pupils bilaterally equal and reactive, pallors not present Chest: Normal vesicular breath sounds, no added sounds, equal good air entry bilaterally CVS: S1-S2 regular, no murmurs, no tachycardia, no gallops, no rubs Abdomen: Soft, nontender, no organomegaly, bowel sounds present Neuro: No focal deficits, no facial deformity, AO x3, Urinary Catheter Management: Daniel: Cath Placed During This Visit: yes, but has since been removed by the nurse Reason for Continuing Indwelling Catheter: Decision to DC Catheter Urinary Catheter Date of Insertion: 06/03/24 Urinary Catheter Time of Insertion: 10:15 Date Urinary Catheter Removed: 06/04/24 Time Urinary Catheter Discontinued: 06:55 Data 06/06/24 02:05 06/06/24 02:05 A&P Assessment and plan (1) Closed left hip fracture: Hip pain after fall. Reported mechanical fall, although on additional questioning he does state that he gets lightheaded when standing up frequently, due to this he has been taking his antihypertensives only intermittently. Will benefit from orthostatic blood pressures once able to have them done. Reviewed vitals, CBC, VBG requested, reviewed, CMP, UA, serum ketones, EKG, hip x-ray, C- spine x-ray, chest x-ray, head CT, elbow x-ray. Reviewed ER provider note, discussed with ER provider. With severe hyperglycemia, received regular insulin IV, dose repeated, blood sugar with improvement down to 384. With severity of hyperglycemia, he also has not brought his insulin pump, may initially admitted to ICU to help regulate severe hyperglycemia with insulin drip. Ketones in the urine, serum ketones negative, VBG without acidemia. Received fluid resuscitation. Will request recheck chemistry for tonight. Monitor blood glucose. Discussed with anesthesia. Qualifiers: Encounter type: initial encounter Qualified Code(s): S72.002A - Fracture of unspecified part of neck of left femur, initial encounter for closed fracture (2) Hyperglycemia: Severe hyperglycemia, up as high as 562. Received 10 units of regular insulin, on recheck still hyperglycemic, additional 10 units given, and recheck with improvement to 384. Urinalysis returned with 1+ ketones, serum ketones checked, negative. VBG requested, not acidemic to suggest active ketoacidosis. Will add Lantus 15 units nightly, slight scale insulin. Plan Hyponatremia: Sodium 128 due to severe hyperglycemia. Continue FMS glucose. DM1: Normally on insulin pump, appears to get variable basal infusion placed during the last visit in December 2023 close to 20 units a day. He does not know his current rate. He did not bring his pump with him. Will give him insulin Lantus 15 units, sliding scale insulin. Monitor POC glucose. Monitor for risk of hypo-, hyperglycemia. HTN: Takes his lisinopril only intermittently due to feeling lightheaded when he stands up. Would benefit from assessment of orthostatic blood pressures. June 04, 2024 Patient's status post left hip hemiarthroplasty yesterday. States that he was in pain today therefore unable to participate with PT for a long time. Blood sugar is well-controlled. Continue morphine as needed for pain management. Add oral tramadol as an iv opiate alternative. Blood pressure ranging on the softer side of 100 systolic, continue to hold antihypertensives. Resume aspirin 325 mg p.o. daily which will also serve as DVT prophylaxis. June 05, 2024. Patient attempted to get out of bed, was motivated to walk with a walker, however thereafter stated he was in too much pain and sat back down. Blood pressure soft, 90/60. Mild hemoglobin drop at 10.6. Will recheck H&H. No dizziness or other syncopal symptoms. Creatinine mildly up at 1.5. Low sodium 131. Patient is clinically appearing to be dehydrated. Will start him on normal saline at 75 cc an hour. Continue as needed morphine for pain management.Tramadol was not ordered due to reported allergy. Chart notes additional allergies to oxycodone, hydromorphone, tramadol and lidocaine. Cannot use NSAIDs due to worsening kidney function. Limited with pain medication optimization due to multiple reported allergies. 06/06/2024 Seen this morning. Patient worked with physical therapy this morning and was able to get from bed to chair. He states he is not interested in going to rehab and would like to go home to do outpatient physical therapy at the [facility]. Discussed with physical therapy as well however patient is requiring quite a bit of assistance. We will just have to see how patient does going forward. Creatinine 1.3 today. Hemoglobin steadily trending down. It is 9.2 today. He also had bleeding at surgical site. Hemoglobin 13.7 on admission. Will continue to monitor. Once hemoglobin stable for 24 hours we will consider discharge. Will have to formulate a safe discharge plan for patient. PDMP PDMP Reviewed: Not Reviewed Attestations 2 Medical Necessity Statement*: Requires continued hospitalization secondary to postop care due to hip fracture. Hemoglobin steadily trending down. Will continue to monitor at this time. Diagnoses Closed fracture of left hip, initial encounter S72.002A Encounter type: initial encounter Hyperglycemia R73.9
--- NOTE | 2024-06-06 15:49 | PC.SOCIAL ---
IMM updated IMM dated and initialed, copy given to patient and copy placed in chart.
[2024-06-06 16:57] LABS: Glucose Point of Care 289 mg/dL (70-110)
--- NOTE | 2024-06-06 17:09 | PC.OT ---
OT TREATMENT ATTEMPTED TWICE IN P.M. PATIENT HAS BEEN SOUND ASLEEP AT BOTH ATTEMPTS. WILL ATTEMPT AGAIN TOMORROW.
[2024-06-06 20:36] LABS: Glucose Point of Care 323 mg/dL (70-110)
[2024-06-06] MEDS: insulin glargine 100 units/1 mL 15 UNIT SUBCUT (20:40)
[2024-06-06] MEDS: morphine 4 mg/mL SDV 1 mL 2 MG IVP (20:41)
[2024-06-07] VITALS (9 sets, daily range): BP systolic 107–159; BP diastolic 51–78; PULSE 70–86; RESP 16–18; TEMP 36.7–37.1; O2SAT 94–97
[2024-06-07] MEDS: acetaminophen 325 mg Tablet 650 MG PO (01:23)
[2024-06-07] MEDS: morphine 4 mg/mL SDV 1 mL 2 MG IVP ×2 (02:17→09:33)
[2024-06-07 04:13] LABS: Basophils % 0.3 %; Eosinophils # 0.1 10^3/uL (0.0-0.8); Eosinophils % 1.2 %; Hematocrit 24.8 % (37-53); Lymphocytes % 29.8 %; Mean Corpuscular HGB Conc 33.1 g/dL (30-55); Mean Corpuscular Hemoglobin 26.9 pg (27-33); Mean Corpuscular Volume 81.3 fl (82-101); Mean Platelet Volume 11.3 fL (7.4-10.4); Monocytes # 1.1 10^3/uL (0.2-0.9); Monocytes % 16.5 %; Neutrophils # 3.47 10^3/uL (1.8-7.7); Neutrophils % 51.8 %; Nucleated Red Blood Cells % 0 %; Platelet Count 219 10^3/cmm (157-399); Red Blood Count 3.05 10^6/uL (3.85-5.65); Red Cell Distribution Width 14.5 % (12.1-15.1); White Blood Count 6.71 10^3/uL (3.29-11.43)
[2024-06-07 04:36] LABS: Blood Urea Nitrogen 19 mg/dL (8-23); Calcium 7.8 mg/dL (8.5-10.5); Carbon Dioxide 22 mmol/L (22-29); Chloride 101 mmol/L (98-107); Creatinine Clr Calc Pharmacy 70.2268; Glucose 223 mg/dL (65-115); Magnesium 1.6 mg/dL (1.7-2.3); Osmolality Calculated 285 mOsm/kg (285-295); Sodium 133 mmol/L (136-145)
[2024-06-07] MEDS: pantoprazole DR 40 mg Tablet PO (05:14)
[2024-06-07] MEDS: sodium chloride 0.9% 1,000 ML 75 ML IV (05:16)
[2024-06-07 06:42] LABS: Glucose Point of Care 227 mg/dL (70-110)
[2024-06-07] MEDS: magnesium sulfate premix 2 GM/50 ML PIGGYBACK IV (09:25)
[2024-06-07] MEDS: insulin lispro 100 unit/1 mL SUBCUT ×4 (09:25→20:56)
[2024-06-07] MEDS: tamsulosin 0.4 mg Capsule PO (09:25)
[2024-06-07] MEDS: aspirin 325 mg Tablet PO (09:25)
--- NOTE | 2024-06-07 10:12 | PC.CHAP ---
Pastoral Care Encounter/Spiritual Assessment Type of Contact [] Declined room attendants visit [] Patient/Family/Request visit [] Outpatient visit [] Follow-up visit [] Physician referral [] Code/Alert [x] Routine visit [] Staff referral [] Actively dying [] Patient sleeping [x] Family support [] [] Out of room [] Palliative care [] [] Receiving care in room [] Pre-surgical visit [] Trauma [] Long length of stay [] ICU visit [] Other: Relational/Emotional Strength [x] Patient feels connected with others/family/visitors/staff [] Distress [] Loneliness/isolation [] Abandonment Spirituality of Patient [x] Person of Katie [] Attends Pentecostalism of their Katie [x] Believes in Prayer [] Reads Bible or Cheondoism materials [] There are Spiritual issues to be addressed Warehouse Unloader Interventions [x] Prayer [x] Active listening [x] Non-anxious presence [x] Spiritual/emotional support [] Crisis/trauma care [] Spiritual counseling [] Bereavement support [] Provided bereavement packet [] Provided Bible/devotional materials [] Provided toy/stuffed animal, coloring book to patient or family member [] Provided Communion [] Anointing/[place] [] Salvation [x] Completed spiritual assessment [] Other: Impact on Illness or Injury [] Angry [] Fearful [] Anxious [] Often cries [] Exhaustion [] Unable to work [] Unable to attend orthodoxy [] Unable to walk/stand [] Unable to read [] Unable to drive [] Unable to eat/drink [] Unable to sleep [] Unable to be with family [] Patient intubated [] Other: Summary Time spent with patient 5 min
[2024-06-07 11:24] LABS: Glucose Point of Care 253 mg/dL (70-110)
--- NOTE | 2024-06-07 13:38 | P.PN_ITS ---
Subjective 2 Subjective: seen this am pt agreeable to go to rehab His surgical dressing is again soaked with blood today. Hemoglobin down to 8.2. Magnesium at 1.6. Vitals/I&O/Wt Last Vital Signs Temp 98.0 F 06/07/24 12:00 Pulse 86 06/07/24 12:00 Resp 18 06/07/24 12:00 BP 122/51 06/07/24 12:00 Pulse Ox 94 06/07/24 12:00 O2 Del Method Room Air 06/07/24 12:00 06/06/24 06/07/24 06/07/24 22:59 06:59 14:59 Intake Total 1710 / 2310 1702.5 / 4012.5 410 / 410 Output Total 1325 / 1700 200 / 1900 200 / 200 Balance 385 / 610 1502.5 / 2112.5 210 / 210 Weight last 48 hrs Weight 96.615 kg Weight 92.079 kg Physical Exam 2 Narrative: General: No acute distress, AO x3 HEENT: PERRLA, pupils bilaterally equal and reactive, pallors not present Chest: Normal vesicular breath sounds, no added sounds, equal good air entry bilaterally CVS: S1-S2 regular, no murmurs, no tachycardia, no gallops, no rubs Abdomen: Soft, nontender, no organomegaly, bowel sounds present Neuro: No focal deficits, no facial deformity, AO x3, Urinary Catheter Management: Daniel: Cath Placed During This Visit: yes, but has since been removed by the nurse Reason for Continuing Indwelling Catheter: Decision to DC Catheter Urinary Catheter Date of Insertion: 06/03/24 Urinary Catheter Time of Insertion: 10:15 Date Urinary Catheter Removed: 06/04/24 Time Urinary Catheter Discontinued: 06:55 Data 06/07/24 03:49 06/07/24 03:49 A&P Assessment and plan (1) Closed left hip fracture: Hip pain after fall. Reported mechanical fall, although on additional questioning he does state that he gets lightheaded when standing up frequently, due to this he has been taking his antihypertensives only intermittently. Will benefit from orthostatic blood pressures once able to have them done. Reviewed vitals, CBC, VBG requested, reviewed, CMP, UA, serum ketones, EKG, hip x-ray, C- spine x-ray, chest x-ray, head CT, elbow x-ray. Reviewed ER provider note, discussed with ER provider. With severe hyperglycemia, received regular insulin IV, dose repeated, blood sugar with improvement down to 384. With severity of hyperglycemia, he also has not brought his insulin pump, may initially admitted to ICU to help regulate severe hyperglycemia with insulin drip. Ketones in the urine, serum ketones negative, VBG without acidemia. Received fluid resuscitation. Will request recheck chemistry for tonight. Monitor blood glucose. Discussed with anesthesia. Qualifiers: Encounter type: initial encounter Qualified Code(s): S72.002A - Fracture of unspecified part of neck of left femur, initial encounter for closed fracture (2) Hyperglycemia: Severe hyperglycemia, up as high as 562. Received 10 units of regular insulin, on recheck still hyperglycemic, additional 10 units given, and recheck with improvement to 384. Urinalysis returned with 1+ ketones, serum ketones checked, negative. VBG requested, not acidemic to suggest active ketoacidosis. Will add Lantus 15 units nightly, slight scale insulin. Plan Hyponatremia: Sodium 128 due to severe hyperglycemia. Continue FMS glucose. DM1: Normally on insulin pump, appears to get variable basal infusion placed during the last visit in December 2023 close to 20 units a day. He does not know his current rate. He did not bring his pump with him. Will give him insulin Lantus 15 units, sliding scale insulin. Monitor POC glucose. Monitor for risk of hypo-, hyperglycemia. HTN: Takes his lisinopril only intermittently due to feeling lightheaded when he stands up. Would benefit from assessment of orthostatic blood pressures. June 04, 2024 Patient's status post left hip hemiarthroplasty yesterday. States that he was in pain today therefore unable to participate with PT for a long time. Blood sugar is well-controlled. Continue morphine as needed for pain management. Add oral tramadol as an iv opiate alternative. Blood pressure ranging on the softer side of 100 systolic, continue to hold antihypertensives. Resume aspirin 325 mg p.o. daily which will also serve as DVT prophylaxis. June 05, 2024. Patient attempted to get out of bed, was motivated to walk with a walker, however thereafter stated he was in too much pain and sat back down. Blood pressure soft, 90/60. Mild hemoglobin drop at 10.6. Will recheck H&H. No dizziness or other syncopal symptoms. Creatinine mildly up at 1.5. Low sodium 131. Patient is clinically appearing to be dehydrated. Will start him on normal saline at 75 cc an hour. Continue as needed morphine for pain management.Tramadol was not ordered due to reported allergy. Chart notes additional allergies to oxycodone, hydromorphone, tramadol and lidocaine. Cannot use NSAIDs due to worsening kidney function. Limited with pain medication optimization due to multiple reported allergies. 06/06/2024 Seen this morning. Patient worked with physical therapy this morning and was able to get from bed to chair. He states he is not interested in going to rehab and would like to go home to do outpatient physical therapy at the [facility]. Discussed with physical therapy as well however patient is requiring quite a bit of assistance. We will just have to see how patient does going forward. Creatinine 1.3 today. Hemoglobin steadily trending down. It is 9.2 today. He also had bleeding at surgical site. Hemoglobin 13.7 on admission. Will continue to monitor. Once hemoglobin stable for 24 hours we will consider discharge. Will have to formulate a safe discharge plan for patient. 06/07/2024 Will stop IV morphine at this time and switch to oral every 4 hours as needed. Will continue to watch blood pressure. Recheck CBC at 6 PM. Patient may require blood transfusion going forward. Secondary to history of coronary artery disease I will transfuse for hemoglobin less than 8. Continue Protonix 40 daily Stop IV fluids. Hemoglobin being low may have a dilutional component. There were mainly added secondary to low blood pressures. Blood pressure has been stable in the last 24 hours. We will stop further fluids and encourage oral intake. Discussed with patient's surgeon. We will apply pressure dressing to surgical site. PDMP PDMP Reviewed: Not Reviewed Attestations 2 Medical Necessity Statement*: Requires continued hospitalization for monitoring of CBC. Patient may require blood transfusion going forward. Surgical dressing still soaking with blood. He is not medically safe to discharge at this time. Coding Level of Care Code Acute Code for Chg Fwd Diagnoses Closed fracture of left hip, initial encounter S72.002A Encounter type: initial encounter Hyperglycemia R73.9
[2024-06-07 16:27] LABS: Glucose Point of Care 268 mg/dL (70-110)
[2024-06-07] MEDS: morphine IR 15 mg Tablet 7.5 MG PO (17:35)
[2024-06-07 18:41] LABS: Basophils % 0.2 %; Eosinophils # 0.1 10^3/uL (0.0-0.8); Eosinophils % 1.5 %; Lymphocytes # 1.6 10^3/uL (0.8-4.8); Lymphocytes % 24.4 %; Mean Corpuscular HGB Conc 32.6 g/dL (30-55); Mean Corpuscular Hemoglobin 27.2 pg (27-33); Mean Corpuscular Volume 83.3 fl (82-101); Mean Platelet Volume 11.5 fL (7.4-10.4); Monocytes # 0.8 10^3/uL (0.2-0.9); Monocytes % 12.2 %; Neutrophils # 3.97 10^3/uL (1.8-7.7); Neutrophils % 61.2 %; Nucleated Red Blood Cells % 0 %; Platelet Count 236 10^3/cmm (157-399); Red Blood Count 3.24 10^6/uL (3.85-5.65); Red Cell Distribution Width 14.6 % (12.1-15.1); White Blood Count 6.48 10^3/uL (3.29-11.43)
[2024-06-07 20:55] LABS: Glucose Point of Care 266 mg/dL (70-110)
[2024-06-07] MEDS: insulin glargine 100 units/1 mL 15 UNIT SUBCUT (20:56)
[2024-06-08] VITALS (10 sets, daily range): BP systolic 62–138; BP diastolic 30–74; PULSE 72–87; RESP 16–18; TEMP 36.4–37.2; O2SAT 94–97
--- NOTE | 2024-06-08 02:52 | ECG_ITS ---
[employer] Test Date: 2024-06-08 Pat Name: Abdirahman Carson Department: Room: 256 Gender: Male Triage Register Nurse: : 1940 Requested By: Alysha Shen Order Number: [id number] See MD: Prabhakar Kim M.D. Measurements Intervals [place] Rate: 83 P: 70 [place]: 260 QRS: -37 QRSD: 111 T: 82 QT: 370 QTc: 436 Interpretive Statements SINUS RHYTHM WITH FIRST DEGREE AV BLOCK WITH OCCASIONAL SUPRAVENTRICULAR PREMATURE COMPLEXES LEFT AXIS DEVIATION [QRS AXIS < -30] LEFT VENTRICULAR HYPERTROPHY AND ST-T CHANGE [VOLTAGE CRITERIA PLUS ST/T ABNORMALITY] POSSIBLE SEPTAL MYOCARDIAL INFARCTION , PROBABLY OLD [30 ms Q WAVE IN V1/V2] Compared to ECG 06/03/2024 08:26:55 Left ventricular hypertrophy now present ST (T wave) deviation now present Ventricular premature complex(es) no longer present Myocardial infarct finding still present Electronically Signed On 06-11-2024 08:07:11 VIDEOGAME TESTER by Prabhakar Kim M.D. [email or web address]
--- NOTE | 2024-06-08 03:28 | PC.NURSE ---
Pt c/o chest pain and nausea. EKG performed, vitals checked; BP 138/71, HR 83, RR 22, 95% on room air. Sitting up resolved pain and nausea completely, when lying flat symptoms presented again. Contacted Dr. Pineda via phone, received order for morphine 2mg IVP once and gi cocktail. Oral lidocaine left out of gi cocktail due to patient's allergy to lidocaine.
[2024-06-08] MEDS: aluminum-mag hydrox-simethicon 30 ML, sucralfate oral liq 1 GM PO (04:21)
[2024-06-08] MEDS: morphine 4 mg/mL SDV 1 mL 2 MG IVP ×3 (04:22→23:02)
[2024-06-08 05:00] LABS: Basophils % 0.3 %; Eosinophils # 0.2 10^3/uL (0.0-0.8); Eosinophils % 2.8 %; Hematocrit 25.9 % (37-53); Lymphocytes # 1.9 10^3/uL (0.8-4.8); Lymphocytes % 29.2 %; Mean Corpuscular HGB Conc 33.6 g/dL (30-55); Mean Corpuscular Hemoglobin 27.1 pg (27-33); Mean Corpuscular Volume 80.7 fl (82-101); Mean Platelet Volume 11.2 fL (7.4-10.4); Monocytes # 1.1 10^3/uL (0.2-0.9); Monocytes % 16.4 %; Neutrophils # 3.31 10^3/uL (1.8-7.7); Neutrophils % 50.8 %; Nucleated Red Blood Cells % 0 %; Platelet Count 273 10^3/cmm (157-399); Red Blood Count 3.21 10^6/uL (3.85-5.65); Red Cell Distribution Width 14.5 % (12.1-15.1); White Blood Count 6.51 10^3/uL (3.29-11.43)
[2024-06-08 05:22] LABS: Anion Gap 13.9 (5-19); Blood Urea Nitrogen 14 mg/dL (8-23); Calcium 7.8 mg/dL (8.5-10.5); Carbon Dioxide 23 mmol/L (22-29); Chloride 102 mmol/L (98-107); Creatinine Clr Calc Pharmacy 80.4132; Glucose 131 mg/dL (65-115); Magnesium 1.8 mg/dL (1.7-2.3); Osmolality Calculated 282 mOsm/kg (285-295); Potassium 3.9 mmol/L (3.5-5.1); Sodium 135 mmol/L (136-145)
[2024-06-08] MEDS: pantoprazole DR 40 mg Tablet PO (06:26)
[2024-06-08 06:30] LABS: Glucose Point of Care 154 mg/dL (70-110)
[2024-06-08] MEDS: insulin lispro 100 unit/1 mL SUBCUT ×4 (08:17→21:23)
[2024-06-08] MEDS: aspirin 325 mg Tablet PO (08:17)
[2024-06-08] MEDS: tamsulosin 0.4 mg Capsule PO (08:17)
--- NOTE | 2024-06-08 10:31 | P.PN_ITS ---
Subjective 2 Subjective: Patient resting comfortably in bed Vitals/I&O/Wt Last Vital Signs Temp 98.4 F 06/08/24 07:46 Pulse 76 06/08/24 07:46 Resp 16 06/08/24 07:46 BP 128/74 06/08/24 07:46 Pulse Ox 94 06/08/24 07:46 O2 Del Method Room Air 06/08/24 07:46 06/07/24 06/08/24 06/08/24 22:59 06:59 14:59 Intake Total 480 / 1552.5 0 / 1552.5 240 / 240 Output Total 550 / 750 350 / 1100 Balance -70 / 802.5 -350 / 452.5 240 / 240 Weight last 48 hrs Weight 218 lb 3.2 oz Weight 213 lb Physical Exam 2 Narrative: Pressure dressing in place Urinary Catheter Management: Daniel: Cath Placed During This Visit: yes, but has since been removed by the nurse Reason for Continuing Indwelling Catheter: Decision to DC Catheter Urinary Catheter Date of Insertion: 06/03/24 Urinary Catheter Time of Insertion: 10:15 Date Urinary Catheter Removed: 06/04/24 Time Urinary Catheter Discontinued: 06:55 Data 06/08/24 04:05 06/08/24 04:05 A&P Assessment and plan (1) Closed left hip fracture: Status post left hip hemiarthroplasty hemoglobin seem to be stabilizing. Qualifiers: Encounter type: initial encounter Qualified Code(s): S72.002A - Fracture of unspecified part of neck of left femur, initial encounter for closed fracture PDMP PDMP Reviewed: Not Reviewed Attestations 2 Medical Necessity Statement*: Per primary service Coding Level of Care Code Acute Code for Chg Fwd Diagnoses Closed fracture of left hip, initial encounter S72.002A Encounter type: initial encounter
[2024-06-08 11:18] LABS: Glucose Point of Care 273 mg/dL (70-110)
--- NOTE | 2024-06-08 12:41 | USCV_ITS ---
Abdirahman Carson Age: 83 Gender: M : 1940 Exam Date: 06/08/2024 13:19 Ordering Phys: Alysha Shen MD Technologist: IRINEO [place] [facility] [place]: chest pain BP: / HR: 75 Rhythm: Sinus Technical Quality: Adequate MEASUREMENTS (Male / Female) Normal Values 2D ECHO LV Diastolic Diameter PLAX 4.6 cm 4.2 - 5.9 / 3.9 - 5.3 cm IVS Diastolic Thickness 1.3 cm 0.6 - 1.0 / 0.6 - 0.9 cm IVS Systolic Thickness 1.6 cm LVPW Diastolic Thickness 1.2 cm 0.6 - 1.0 / 0.6 - 0.9 cm LVPW Systolic Thickness 1.5 cm LVOT Diameter 2.1 cm LV Ejection Fraction 2D Teich 69.6 % LV Ejection Fraction MOD 4C 62.0 % LV Ejection Fraction MOD 2C 68.0 % LV Ejection Fraction 2C AL 67.1 % LA Diameter 3.6 cm RA Systolic Volume 4C AL 38.1 ml RA Systolic Volume 4C MOD 39.7 ml LA Sys Volume AL 93.4 cm cubed Aorta at Sinotubular Diameter 3.0 cm M-MODE LA Ao Ratio MM 1.3 AV Cusp Separation MM 1.9 cm DOPPLER AV Peak Velocity 195.0 cm/s LVOT Peak Velocity 85.0 cm/s AV Area Cont Eq vti 1.8 cm squared AV Area Cont Eq pk 1.5 cm squared MV Peak Velocity 103.0 cm/s MV Area PHT 2.6 cm squared Mitral E to A Ratio 0.9 TV Peak Velocity 182.5 cm/s TR Peak Velocity 195.0 cm/s TR Peak Gradient 15.2 mmHg TV Peak E Velocity 113.0 cm/s PV Peak Velocity 107.0 cm/s FINDINGS Left Ventricle Left ventricle is normal in size. LV systolic function is normal with EF 55-60%. No regional wall motion abnormalities are seen. Right Ventricle Normal in size and function Right Atrium Normal in size Left Atrium Dilated Mitral Valve Structurally normal mitral valve. Mild mitral regurgitation. Aortic Valve Structurally normal aortic valve. No significant stenosis or regurgitation. Tricuspid Valve Insufficient TR jet to calculate RVSP Pulmonic Valve Not well visualized Pericardium Normal Aorta Mildly dilated ascending aorta at 3.5 cm IVC Not visualized CONCLUSIONS LV systolic function is normal with EF of 55-60%. Left atrial dilation. Mild mitral regurgitation. Mildly dilated ascending aorta at 3.5 cm Prabhakar Kim MD (Electronically Signed) Final Date: 09 June 2024 10:06 S
--- NOTE | 2024-06-08 12:44 | P.PN_ITS ---
Subjective 2 Subjective: Seen this morning. Hemoglobin has been stable. However towards the afternoon patient became dizzy as he stood up. Orthostatic vitals positive. At 1 point MOSS BLEACHER recorded blood pressure 60/30. Asked nursing staff to check a manual. He is not having any symptoms. Once we lay him flat his blood pressure improves. I have ordered a 1 L normal saline bolus. Patient did report to me that when we give him IV morphine he does okay however with the oral morphine he starts to itch. He states he would probably need Benadryl with that. I offered high-dose Tylenol however he states Tylenol always gives him a headache therefore he wants to hold off on that. Tramadol also causes itching. He is allergic to codeine hydromorphone and oxycodone. I discussed with him regarding NSAIDs and the fact that he would be at high risk of bleed secondary to being on high-dose aspirin at this time. We will need to figure out a pain regimen for patient at this time. Denies chest pain shortness of breath. Hemoglobin stable around 8.7/8.2/8.8. Pressure dressing in place on surgical wound. Vitals/I&O/Wt Last Vital Signs Temp 97.5 F L 06/08/24 11:21 Pulse 72 06/08/24 12:21 Resp 16 06/08/24 11:21 BP 117/68 06/08/24 12:21 Pulse Ox 95 06/08/24 11:21 O2 Del Method Room Air 06/08/24 11:21 06/07/24 06/08/24 06/08/24 22:59 06:59 14:59 Intake Total 480 / 1552.5 0 / 1552.5 360 / 360 Output Total 550 / 750 350 / 1100 175 / 175 Balance -70 / 802.5 -350 / 452.5 185 / 185 Weight last 48 hrs Weight 98.974 kg Weight 96.615 kg Physical Exam 2 Narrative: General: No acute distress, AO x3 HEENT: PERRLA, pupils bilaterally equal and reactive, pallors not present Chest: Normal vesicular breath sounds, no added sounds, equal good air entry bilaterally CVS: S1-S2 regular, no murmurs, no tachycardia, no gallops, no rubs Abdomen: Soft, nontender, no organomegaly, bowel sounds present Neuro: No focal deficits, no facial deformity, AO x3, Urinary Catheter Management: Daniel: Cath Placed During This Visit: yes, but has since been removed by the nurse Reason for Continuing Indwelling Catheter: Decision to DC Catheter Urinary Catheter Date of Insertion: 06/03/24 Urinary Catheter Time of Insertion: 10:15 Date Urinary Catheter Removed: 06/04/24 Time Urinary Catheter Discontinued: 06:55 Data 06/08/24 04:05 06/08/24 04:05 A&P Assessment and plan (1) Closed left hip fracture: Hip pain after fall. Reported mechanical fall, although on additional questioning he does state that he gets lightheaded when standing up frequently, due to this he has been taking his antihypertensives only intermittently. Will benefit from orthostatic blood pressures once able to have them done. Reviewed vitals, CBC, VBG requested, reviewed, CMP, UA, serum ketones, EKG, hip x-ray, C- spine x-ray, chest x-ray, head CT, elbow x-ray. Reviewed ER provider note, discussed with ER provider. With severe hyperglycemia, received regular insulin IV, dose repeated, blood sugar with improvement down to 384. With severity of hyperglycemia, he also has not brought his insulin pump, may initially admitted to ICU to help regulate severe hyperglycemia with insulin drip. Ketones in the urine, serum ketones negative, VBG without acidemia. Received fluid resuscitation. Will request recheck chemistry for tonight. Monitor blood glucose. Discussed with anesthesia. Qualifiers: Encounter type: initial encounter Qualified Code(s): S72.002A - Fracture of unspecified part of neck of left femur, initial encounter for closed fracture (2) Hyperglycemia: Severe hyperglycemia, up as high as 562. Received 10 units of regular insulin, on recheck still hyperglycemic, additional 10 units given, and recheck with improvement to 384. Urinalysis returned with 1+ ketones, serum ketones checked, negative. VBG requested, not acidemic to suggest active ketoacidosis. Will add Lantus 15 units nightly, slight scale insulin. Plan Hyponatremia: Sodium 128 due to severe hyperglycemia. Continue FMS glucose. DM1: Normally on insulin pump, appears to get variable basal infusion placed during the last visit in December 2023 close to 20 units a day. He does not know his current rate. He did not bring his pump with him. Will give him insulin Lantus 15 units, sliding scale insulin. Monitor POC glucose. Monitor for risk of hypo-, hyperglycemia. HTN: Takes his lisinopril only intermittently due to feeling lightheaded when he stands up. Would benefit from assessment of orthostatic blood pressures. June 04, 2024 Patient's status post left hip hemiarthroplasty yesterday. States that he was in pain today therefore unable to participate with PT for a long time. Blood sugar is well-controlled. Continue morphine as needed for pain management. Add oral tramadol as an iv opiate alternative. Blood pressure ranging on the softer side of 100 systolic, continue to hold antihypertensives. Resume aspirin 325 mg p.o. daily which will also serve as DVT prophylaxis. June 05, 2024. Patient attempted to get out of bed, was motivated to walk with a walker, however thereafter stated he was in too much pain and sat back down. Blood pressure soft, 90/60. Mild hemoglobin drop at 10.6. Will recheck H&H. No dizziness or other syncopal symptoms. Creatinine mildly up at 1.5. Low sodium 131. Patient is clinically appearing to be dehydrated. Will start him on normal saline at 75 cc an hour. Continue as needed morphine for pain management.Tramadol was not ordered due to reported allergy. Chart notes additional allergies to oxycodone, hydromorphone, tramadol and lidocaine. Cannot use NSAIDs due to worsening kidney function. Limited with pain medication optimization due to multiple reported allergies. 06/06/2024 Seen this morning. Patient worked with physical therapy this morning and was able to get from bed to chair. He states he is not interested in going to rehab and would like to go home to do outpatient physical therapy at the [facility]. Discussed with physical therapy as well however patient is requiring quite a bit of assistance. We will just have to see how patient does going forward. Creatinine 1.3 today. Hemoglobin steadily trending down. It is 9.2 today. He also had bleeding at surgical site. Hemoglobin 13.7 on admission. Will continue to monitor. Once hemoglobin stable for 24 hours we will consider discharge. Will have to formulate a safe discharge plan for patient. 06/07/2024 Will stop IV morphine at this time and switch to oral every 4 hours as needed. Will continue to watch blood pressure. Recheck CBC at 6 PM. Patient may require blood transfusion going forward. Secondary to history of coronary artery disease I will transfuse for hemoglobin less than 8. Continue Protonix 40 daily Stop IV fluids. Hemoglobin being low may have a dilutional component. There were mainly added secondary to low blood pressures. Blood pressure has been stable in the last 24 hours. We will stop further fluids and encourage oral intake. Discussed with patient's surgeon. We will apply pressure dressing to surgical site. 06/08/2024 I will switch patient back to IV morphine at this time as he has no adverse reactions to that. In the meantime I will try to figure out a pain regimen for him going forward. He should not be needing opioids past 3 to 4 days postop and we may be able to switch to a nonopioid medication however he is also reluctant to take Tylenol. He was orthostatic positive this morning. 1 L normal saline bolus has been ordered. Will check stat CBC. Will check lactic acid I will check an echocardiogram. Transfuse for hemoglobin less than 8 We will add continuous IV fluids 75 cc/h after the bolus and continue to monitor blood pressure every 2 hours. Patient is on tamsulosin at home which has a side effect of orthostatic hypotension. I will hold that at this time. Initial plan was to discharge patient to rehab today however with new events as noted above he will be unsafe to be discharged and blood pressure will need to be monitored further. PDMP PDMP Reviewed: Not Reviewed Attestations 2 Medical Necessity Statement*: Will need continued hospitalization for severe hypotension orthostatic hypotension requiring IV fluids. Diagnoses Closed fracture of left hip, initial encounter S72.002A Encounter type: initial encounter Hyperglycemia R73.9
[2024-06-08] MEDS: sodium chloride 0.9% 1,000 ML 999 ML IV (12:54)
[2024-06-08 13:14] LABS: Basophils % 0.3 %; Eosinophils # 0.2 10^3/uL (0.0-0.8); Eosinophils % 2.5 %; Hematocrit 24.9 % (37-53); Lymphocytes # 1.7 10^3/uL (0.8-4.8); Lymphocytes % 27.5 %; Mean Corpuscular HGB Conc 32.5 g/dL (30-55); Mean Corpuscular Hemoglobin 27.3 pg (27-33); Mean Corpuscular Volume 83.8 fl (82-101); Mean Platelet Volume 10.6 fL (7.4-10.4); Monocytes # 0.9 10^3/uL (0.2-0.9); Monocytes % 14.4 %; Neutrophils # 3.34 10^3/uL (1.8-7.7); Neutrophils % 54.6 %; Nucleated Red Blood Cells % 0 %; Platelet Count 250 10^3/cmm (157-399); Red Blood Count 2.97 10^6/uL (3.85-5.65); Red Cell Distribution Width 14.7 % (12.1-15.1); White Blood Count 6.11 10^3/uL (3.29-11.43)
[2024-06-08 13:33] LABS: Lactate (Lactic Acid level) 1.9 mmol/L (0.5-2.2)
--- NOTE | 2024-06-08 14:00 | PC.SOCIAL ---
IMM updated IMM dated and initialed, Copy placed in chart and copy given to patient
[2024-06-08] MEDS: sodium chloride 0.9% 1,000 ML 75 ML IV (14:03)
[2024-06-08 16:51] LABS: Glucose Point of Care 160 mg/dL (70-110)
[2024-06-08 21:10] LABS: Glucose Point of Care 279 mg/dL (70-110)
[2024-06-08] MEDS: insulin glargine 100 units/1 mL 15 UNIT SUBCUT (21:23)
[2024-06-09] VITALS (8 sets, daily range): BP systolic 63–142; BP diastolic 31–80; PULSE 73–94; RESP 15–18; TEMP 36.7–37.3; O2SAT 93–96
[2024-06-09 04:42] LABS: Basophils % 0.5 %; Eosinophils # 0.3 10^3/uL (0.0-0.8); Eosinophils % 4.2 %; Hematocrit 27.1 % (37-53); Lymphocytes # 2.2 10^3/uL (0.8-4.8); Lymphocytes % 35.8 %; Mean Corpuscular HGB Conc 33.2 g/dL (30-55); Mean Corpuscular Hemoglobin 27.6 pg (27-33); Mean Corpuscular Volume 83.1 fl (82-101); Monocytes # 1.1 10^3/uL (0.2-0.9); Monocytes % 17.3 %; Neutrophils # 2.59 10^3/uL (1.8-7.7); Neutrophils % 41.7 %; Nucleated Red Blood Cells % 0 %; Platelet Count 269 10^3/cmm (157-399); Red Blood Count 3.26 10^6/uL (3.85-5.65); Red Cell Distribution Width 14.7 % (12.1-15.1)
[2024-06-09 04:56] LABS: Anion Gap 10.8 (5-19); Blood Urea Nitrogen 15 mg/dL (8-23); Calcium 7.8 mg/dL (8.5-10.5); Carbon Dioxide 25 mmol/L (22-29); Chloride 99 mmol/L (98-107); Creatinine Clr Calc Pharmacy 80.6953; Glucose 120 mg/dL (65-115); Magnesium 1.7 mg/dL (1.7-2.3); Osmolality Calculated 274 mOsm/kg (285-295); Potassium 3.8 mmol/L (3.5-5.1); Sodium 131 mmol/L (136-145)
[2024-06-09 05:09] LABS: Slide Review Slide Review Perform
[2024-06-09] MEDS: morphine 4 mg/mL SDV 1 mL 2 MG IVP ×2 (05:28→23:44)
[2024-06-09] MEDS: pantoprazole DR 40 mg Tablet PO (05:29)
[2024-06-09] MEDS: sodium chloride 0.9% 1,000 ML 75 ML IV ×2 (05:30→17:15)
[2024-06-09 06:29] LABS: Glucose Point of Care 121 mg/dL (70-110)
[2024-06-09] MEDS: aspirin 325 mg Tablet PO (07:58)
[2024-06-09 10:43] LABS: Glucose Point of Care 169 mg/dL (70-110)
[2024-06-09] MEDS: insulin lispro 100 unit/1 mL SUBCUT ×3 (11:41→21:47)
--- NOTE | 2024-06-09 13:29 | P.PN_ITS ---
Subjective 2 Subjective: Seen this morning. Orthostatic vitals were rechecked today. Upon standing his blood pressure dropped to 60/30. Yesterday similar values noted. he states that he has been having this for quite some time now where he gets lightheaded and dizzy when he gets up. This is not a new transient finding after surgery. He states that he has been falling at home because he gets too lightheaded. 6 months ago he had to have shoulder surgery and now he had to have hip surgery. He states he tries to get up really slow. He remains dizzy for a little while and then it does improve eventually. Vitals/I&O/Wt Last Vital Signs Temp 98.0 F 06/09/24 11:12 Pulse 79 06/09/24 11:12 Resp 16 06/09/24 11:12 BP 135/74 06/09/24 11:12 Pulse Ox 94 06/09/24 11:12 O2 Del Method Room Air 06/09/24 11:12 06/08/24 06/09/24 06/09/24 22:59 06:59 14:59 Intake Total 240 / 1600 1240 / 2840 240 / 240 Output Total 300 / 475 500 / 500 Balance -60 / 1125 1240 / 2365 -260 / -260 Weight last 48 hrs Weight 99.79 kg Weight 98.974 kg Physical Exam 2 Narrative: General: No acute distress, AO x3 HEENT: PERRLA, pupils bilaterally equal and reactive, pallors not present Chest: Normal vesicular breath sounds, no added sounds, equal good air entry bilaterally CVS: S1-S2 regular, no murmurs, no tachycardia, no gallops, no rubs Abdomen: Soft, nontender, no organomegaly, bowel sounds present Neuro: No focal deficits, no facial deformity, AO x3, Urinary Catheter Management: Daniel: Cath Placed During This Visit: yes, but has since been removed by the nurse Reason for Continuing Indwelling Catheter: Decision to DC Catheter Urinary Catheter Date of Insertion: 06/03/24 Urinary Catheter Time of Insertion: 10:15 Date Urinary Catheter Removed: 06/04/24 Time Urinary Catheter Discontinued: 06:55 Data 06/09/24 04:03 06/09/24 04:03 A&P Assessment and plan (1) Closed left hip fracture: Hip pain after fall. Reported mechanical fall, although on additional questioning he does state that he gets lightheaded when standing up frequently, due to this he has been taking his antihypertensives only intermittently. Will benefit from orthostatic blood pressures once able to have them done. Reviewed vitals, CBC, VBG requested, reviewed, CMP, UA, serum ketones, EKG, hip x-ray, C- spine x-ray, chest x-ray, head CT, elbow x-ray. Reviewed ER provider note, discussed with ER provider. With severe hyperglycemia, received regular insulin IV, dose repeated, blood sugar with improvement down to 384. With severity of hyperglycemia, he also has not brought his insulin pump, may initially admitted to ICU to help regulate severe hyperglycemia with insulin drip. Ketones in the urine, serum ketones negative, VBG without acidemia. Received fluid resuscitation. Will request recheck chemistry for tonight. Monitor blood glucose. Discussed with anesthesia. Qualifiers: Encounter type: initial encounter Qualified Code(s): S72.002A - Fracture of unspecified part of neck of left femur, initial encounter for closed fracture (2) Hyperglycemia: Severe hyperglycemia, up as high as 562. Received 10 units of regular insulin, on recheck still hyperglycemic, additional 10 units given, and recheck with improvement to 384. Urinalysis returned with 1+ ketones, serum ketones checked, negative. VBG requested, not acidemic to suggest active ketoacidosis. Will add Lantus 15 units nightly, slight scale insulin. (3) Orthostatic hypotension: (4) Diabetes, type I: (5) HLD (hyperlipidemia): (6) Episodic lightheadedness: (7) Dizziness on standing: (8) Hypotension: (9) Orthostatic lightheadedness: Plan Hyponatremia: Sodium 128 due to severe hyperglycemia. Continue FMS glucose. DM1: Normally on insulin pump, appears to get variable basal infusion placed during the last visit in December 2023 close to 20 units a day. He does not know his current rate. He did not bring his pump with him. Will give him insulin Lantus 15 units, sliding scale insulin. Monitor POC glucose. Monitor for risk of hypo-, hyperglycemia. HTN: Takes his lisinopril only intermittently due to feeling lightheaded when he stands up. Would benefit from assessment of orthostatic blood pressures. June 04, 2024 Patient's status post left hip hemiarthroplasty yesterday. States that he was in pain today therefore unable to participate with PT for a long time. Blood sugar is well-controlled. Continue morphine as needed for pain management. Add oral tramadol as an iv opiate alternative. Blood pressure ranging on the softer side of 100 systolic, continue to hold antihypertensives. Resume aspirin 325 mg p.o. daily which will also serve as DVT prophylaxis. June 05, 2024. Patient attempted to get out of bed, was motivated to walk with a walker, however thereafter stated he was in too much pain and sat back down. Blood pressure soft, 90/60. Mild hemoglobin drop at 10.6. Will recheck H&H. No dizziness or other syncopal symptoms. Creatinine mildly up at 1.5. Low sodium 131. Patient is clinically appearing to be dehydrated. Will start him on normal saline at 75 cc an hour. Continue as needed morphine for pain management.Tramadol was not ordered due to reported allergy. Chart notes additional allergies to oxycodone, hydromorphone, tramadol and lidocaine. Cannot use NSAIDs due to worsening kidney function. Limited with pain medication optimization due to multiple reported allergies. 06/06/2024 Seen this morning. Patient worked with physical therapy this morning and was able to get from bed to chair. He states he is not interested in going to rehab and would like to go home to do outpatient physical therapy at the [facility]. Discussed with physical therapy as well however patient is requiring quite a bit of assistance. We will just have to see how patient does going forward. Creatinine 1.3 today. Hemoglobin steadily trending down. It is 9.2 today. He also had bleeding at surgical site. Hemoglobin 13.7 on admission. Will continue to monitor. Once hemoglobin stable for 24 hours we will consider discharge. Will have to formulate a safe discharge plan for patient. 06/07/2024 Will stop IV morphine at this time and switch to oral every 4 hours as needed. Will continue to watch blood pressure. Recheck CBC at 6 PM. Patient may require blood transfusion going forward. Secondary to history of coronary artery disease I will transfuse for hemoglobin less than 8. Continue Protonix 40 daily Stop IV fluids. Hemoglobin being low may have a dilutional component. There were mainly added secondary to low blood pressures. Blood pressure has been stable in the last 24 hours. We will stop further fluids and encourage oral intake. Discussed with patient's surgeon. We will apply pressure dressing to surgical site. 06/08/2024 I will switch patient back to IV morphine at this time as he has no adverse reactions to that. In the meantime I will try to figure out a pain regimen for him going forward. He should not be needing opioids past 3 to 4 days postop and we may be able to switch to a nonopioid medication however he is also reluctant to take Tylenol. He was orthostatic positive this morning. 1 L normal saline bolus has been ordered. Will check stat CBC. Will check lactic acid I will check an echocardiogram. Transfuse for hemoglobin less than 8 We will add continuous IV fluids 75 cc/h after the bolus and continue to monitor blood pressure every 2 hours. Patient is on tamsulosin at home which has a side effect of orthostatic hypotension. I will hold that at this time. Initial plan was to discharge patient to rehab today however with new events as noted above he will be unsafe to be discharged and blood pressure will need to be monitored further. 06/09/2024 Will start midodrine 5 mg 3 times daily and see response to blood pressure. Patient does have severe orthostatic hypotension. This has been a barrier to discharge. Have discussed with patient and he states that he has been having this for quite some time now where he gets lightheaded and dizzy when he gets up. This is not a new transient finding after surgery. He states that he has been falling at home because he gets too lightheaded. 6 months ago he had to have shoulder surgery and now he had to have hip surgery. He states he tries to get up really slow. He remains dizzy for a little while and then it does improve eventually. Last few days patient has had hypotension issues and initially was on IV fluids which did not help. We stopped opioids which also did not help. I will if patient does have orthostatic hypotension from prior which was undiagnosed until now. We will start midodrine 5 3 times daily and this may be uptitrated as an outpatient in few weeks. He will need continued monitoring of his blood pressure. We will continue to keep patient in the hospital today for monitoring. If blood pressures are starting to improve in next 24 hours we will consider discharging to rehab. ? I would like to stop tamsulosin for few weeks at this time. Patient to follow-up with primary care doctor going forward. ? Echocardiogram resulted. EF is normal. He also had a cath done in April with minimal coronary artery disease. No intervention needed. He does have a 3.5 cm ascending aorta. He will need to have follow-up with PCP with follow-up imaging in 6 months. ? Patient has itching reaction with oral morphine. Will switch to IV morphine at this time. At discharge we will consider discharging on nonopioid formulation for pain medication. ? Hemoglobin has been stable. Hemoglobin 9 this morning. ? I will stop IV fluids going forward. Hopeful for discharge in next 24 to 48 hours. PDMP PDMP Reviewed: Not Reviewed Attestations 2 Medical Necessity Statement*: Needs continued hospitalization for monitoring of blood pressure secondary to orthostatic hypotension. Possible discharge in next 24 to 48 hours. Diagnoses Closed fracture of left hip, initial encounter S72.002A Encounter type: initial encounter Hyperglycemia R73.9 Orthostatic hypotension I95.1 Diabetes, type I E10.9 HLD (hyperlipidemia) E78.5 Episodic lightheadedness R42 Dizziness on standing R42 Hypotension I95.9 Orthostatic lightheadedness R42
[2024-06-09] MEDS: midodrine 5 mg TABLET PO ×2 (14:49→20:37)
[2024-06-09 17:18] LABS: Glucose Point of Care 193 mg/dL (70-110)
[2024-06-09 19:01] LABS: 25 Hydroxy Vitamin D 14 ng/mL (30-100); Thyroid Stimulating Hormone 1.79 uIU/mL (0.27-4.20)
[2024-06-09 20:54] LABS: Glucose Point of Care 246 mg/dL (70-110)
[2024-06-09 21:11] LABS: Free T4 Free Thyroxine 1.16 ng/dL (0.82-1.77)
[2024-06-09] MEDS: insulin glargine 100 units/1 mL 15 UNIT SUBCUT (21:47)
[2024-06-10] VITALS (7 sets, daily range): BP systolic 119–139; BP diastolic 66–83; PULSE 68–81; RESP 16–18; TEMP 36.7–37.4; O2SAT 94–97
[2024-06-10] MEDS: morphine 4 mg/mL SDV 1 mL 2 MG IVP (05:45)
[2024-06-10] MEDS: sodium chloride 0.9% 1,000 ML 75 ML IV (05:45)
[2024-06-10] MEDS: pantoprazole DR 40 mg Tablet PO (05:45)
[2024-06-10 06:22] LABS: Glucose Point of Care 150 mg/dL (70-110)
[2024-06-10] MEDS: midodrine 5 mg TABLET PO ×3 (08:11→21:08)
[2024-06-10] MEDS: insulin lispro 100 unit/1 mL SUBCUT ×4 (08:11→21:08)
[2024-06-10] MEDS: aspirin 325 mg Tablet PO (08:11)
[2024-06-10 09:13] LABS: Basophils % 0.3 %; Eosinophils # 0.3 10^3/uL (0.0-0.8); Eosinophils % 4.1 %; Lymphocytes # 2.1 10^3/uL (0.8-4.8); Lymphocytes % 29.2 %; Mean Corpuscular HGB Conc 34.2 g/dL (30-55); Mean Corpuscular Hemoglobin 28.4 pg (27-33); Mean Corpuscular Volume 83.1 fl (82-101); Mean Platelet Volume 10.5 fL (7.4-10.4); Monocytes # 1.2 10^3/uL (0.2-0.9); Monocytes % 16.8 %; Neutrophils # 3.57 10^3/uL (1.8-7.7); Neutrophils % 48.8 %; Nucleated Red Blood Cells % 0 %; Platelet Count 337 10^3/cmm (157-399); Red Blood Count 3.13 10^6/uL (3.85-5.65); Red Cell Distribution Width 14.6 % (12.1-15.1); White Blood Count 7.32 10^3/uL (3.29-11.43)
[2024-06-10 09:38] LABS: Anion Gap 12.9 (5-19); Blood Urea Nitrogen 13 mg/dL (8-23); Carbon Dioxide 21 mmol/L (22-29); Chloride 98 mmol/L (98-107); Creatinine Clr Calc Pharmacy 80.6642; Glucose 171 mg/dL (65-115); Osmolality Calculated 270 mOsm/kg (285-295); Potassium 3.9 mmol/L (3.5-5.1); Sodium 128 mmol/L (136-145)
[2024-06-10 11:49] LABS: Glucose Point of Care 160 mg/dL (70-110)
[2024-06-10] MEDS: cosyntropin 0.25 mg SDV IVP (12:28)
--- NOTE | 2024-06-10 13:12 | PC.NURSE ---
Cortisol push after baseline draw at 1310. Vicenta in lab notified of time.
--- NOTE | 2024-06-10 13:13 | P.PN_ITS ---
Subjective 2 Subjective: Orthostatic vital recheck today. Upon standing patient blood pressure dropped to 70 systolic. Patient complains of lightheadedness and dizziness upon standing up. Vitals/I&O/Wt Last Vital Signs Temp 99.0 F 06/10/24 08:05 Pulse 74 06/10/24 08:05 Resp 18 06/10/24 08:05 BP 125/67 06/10/24 08:05 Pulse Ox 94 06/10/24 08:05 O2 Del Method Room Air 06/10/24 08:05 06/09/24 06/10/24 06/10/24 22:59 06:59 14:59 Intake Total 1301.25 / 1781.25 937.5 / 2718.75 727.5 / 727.5 Output Total 800 / 1300 100 / 1400 675 / 675 Balance 501.25 / 481.25 837.5 / 1318.75 52.5 / 52.5 Weight last 48 hrs Weight 99.7 kg Weight 99.79 kg Physical Exam 2 Urinary Catheter Management: Daniel: Cath Placed During This Visit: yes, but has since been removed by the nurse Reason for Continuing Indwelling Catheter: Decision to DC Catheter Urinary Catheter Date of Insertion: 06/03/24 Urinary Catheter Time of Insertion: 10:15 Date Urinary Catheter Removed: 06/04/24 Time Urinary Catheter Discontinued: 06:55 Data 06/10/24 08:59 06/10/24 08:59 A&P Assessment and plan (1) Closed left hip fracture: Hip pain after fall. Reported mechanical fall, although on additional questioning he does state that he gets lightheaded when standing up frequently, due to this he has been taking his antihypertensives only intermittently. Will benefit from orthostatic blood pressures once able to have them done. Reviewed vitals, CBC, VBG requested, reviewed, CMP, UA, serum ketones, EKG, hip x-ray, C- spine x-ray, chest x-ray, head CT, elbow x-ray. Reviewed ER provider note, discussed with ER provider. With severe hyperglycemia, received regular insulin IV, dose repeated, blood sugar with improvement down to 384. With severity of hyperglycemia, he also has not brought his insulin pump, may initially admitted to ICU to help regulate severe hyperglycemia with insulin drip. Ketones in the urine, serum ketones negative, VBG without acidemia. Received fluid resuscitation. Will request recheck chemistry for tonight. Monitor blood glucose. Discussed with anesthesia. Qualifiers: Encounter type: initial encounter Qualified Code(s): S72.002A - Fracture of unspecified part of neck of left femur, initial encounter for closed fracture (2) Hyperglycemia: Severe hyperglycemia, up as high as 562. Received 10 units of regular insulin, on recheck still hyperglycemic, additional 10 units given, and recheck with improvement to 384. Urinalysis returned with 1+ ketones, serum ketones checked, negative. VBG requested, not acidemic to suggest active ketoacidosis. Will add Lantus 15 units nightly, slight scale insulin. (3) Orthostatic hypotension: (4) Diabetes, type I: (5) HLD (hyperlipidemia): (6) Episodic lightheadedness: (7) Dizziness on standing: (8) Hypotension: (9) Orthostatic lightheadedness: Plan Hyponatremia: Sodium 128 due to severe hyperglycemia. Continue FMS glucose. DM1: Normally on insulin pump, appears to get variable basal infusion placed during the last visit in December 2023 close to 20 units a day. He does not know his current rate. He did not bring his pump with him. Will give him insulin Lantus 15 units, sliding scale insulin. Monitor POC glucose. Monitor for risk of hypo-, hyperglycemia. HTN: Takes his lisinopril only intermittently due to feeling lightheaded when he stands up. Would benefit from assessment of orthostatic blood pressures. June 04, 2024 Patient's status post left hip hemiarthroplasty yesterday. States that he was in pain today therefore unable to participate with PT for a long time. Blood sugar is well-controlled. Continue morphine as needed for pain management. Add oral tramadol as an iv opiate alternative. Blood pressure ranging on the softer side of 100 systolic, continue to hold antihypertensives. Resume aspirin 325 mg p.o. daily which will also serve as DVT prophylaxis. June 05, 2024. Patient attempted to get out of bed, was motivated to walk with a walker, however thereafter stated he was in too much pain and sat back down. Blood pressure soft, 90/60. Mild hemoglobin drop at 10.6. Will recheck H&H. No dizziness or other syncopal symptoms. Creatinine mildly up at 1.5. Low sodium 131. Patient is clinically appearing to be dehydrated. Will start him on normal saline at 75 cc an hour. Continue as needed morphine for pain management.Tramadol was not ordered due to reported allergy. Chart notes additional allergies to oxycodone, hydromorphone, tramadol and lidocaine. Cannot use NSAIDs due to worsening kidney function. Limited with pain medication optimization due to multiple reported allergies. 06/06/2024 Seen this morning. Patient worked with physical therapy this morning and was able to get from bed to chair. He states he is not interested in going to rehab and would like to go home to do outpatient physical therapy at the [facility]. Discussed with physical therapy as well however patient is requiring quite a bit of assistance. We will just have to see how patient does going forward. Creatinine 1.3 today. Hemoglobin steadily trending down. It is 9.2 today. He also had bleeding at surgical site. Hemoglobin 13.7 on admission. Will continue to monitor. Once hemoglobin stable for 24 hours we will consider discharge. Will have to formulate a safe discharge plan for patient. 06/07/2024 Will stop IV morphine at this time and switch to oral every 4 hours as needed. Will continue to watch blood pressure. Recheck CBC at 6 PM. Patient may require blood transfusion going forward. Secondary to history of coronary artery disease I will transfuse for hemoglobin less than 8. Continue Protonix 40 daily Stop IV fluids. Hemoglobin being low may have a dilutional component. There were mainly added secondary to low blood pressures. Blood pressure has been stable in the last 24 hours. We will stop further fluids and encourage oral intake. Discussed with patient's surgeon. We will apply pressure dressing to surgical site. 06/08/2024 I will switch patient back to IV morphine at this time as he has no adverse reactions to that. In the meantime I will try to figure out a pain regimen for him going forward. He should not be needing opioids past 3 to 4 days postop and we may be able to switch to a nonopioid medication however he is also reluctant to take Tylenol. He was orthostatic positive this morning. 1 L normal saline bolus has been ordered. Will check stat CBC. Will check lactic acid I will check an echocardiogram. Transfuse for hemoglobin less than 8 We will add continuous IV fluids 75 cc/h after the bolus and continue to monitor blood pressure every 2 hours. Patient is on tamsulosin at home which has a side effect of orthostatic hypotension. I will hold that at this time. Initial plan was to discharge patient to rehab today however with new events as noted above he will be unsafe to be discharged and blood pressure will need to be monitored further. 06/09/2024 Will start midodrine 5 mg 3 times daily and see response to blood pressure. Patient does have severe orthostatic hypotension. This has been a barrier to discharge. Have discussed with patient and he states that he has been having this for quite some time now where he gets lightheaded and dizzy when he gets up. This is not a new transient finding after surgery. He states that he has been falling at home because he gets too lightheaded. 6 months ago he had to have shoulder surgery and now he had to have hip surgery. He states he tries to get up really slow. He remains dizzy for a little while and then it does improve eventually. Last few days patient has had hypotension issues and initially was on IV fluids which did not help. We stopped opioids which also did not help. I will if patient does have orthostatic hypotension from prior which was undiagnosed until now. We will start midodrine 5 3 times daily and this may be uptitrated as an outpatient in few weeks. He will need continued monitoring of his blood pressure. We will continue to keep patient in the hospital today for monitoring. If blood pressures are starting to improve in next 24 hours we will consider discharging to rehab. ? I would like to stop tamsulosin for few weeks at this time. Patient to follow-up with primary care doctor going forward. ? Echocardiogram resulted. EF is normal. He also had a cath done in April with minimal coronary artery disease. No intervention needed. He does have a 3.5 cm ascending aorta. He will need to have follow-up with PCP with follow-up imaging in 6 months. ? Patient has itching reaction with oral morphine. Will switch to IV morphine at this time. At discharge we will consider discharging on nonopioid formulation for pain medication. ? Hemoglobin has been stable. Hemoglobin 9 this morning. ? I will stop IV fluids going forward. Hopeful for discharge in next 24 to 48 hours. 06/10/2024 Upon standing patient blood pressure dropped to 70 systolic. Discussed with endocrinology over the phone. Will be going ahead with a cosyntropin stimulation test. If test is positive patient will need to be started on steroids and if test is negative he may be able to discharge on current midodrine. Dose may have to be uptitrated as an outpatient. Continue to hold tamsulosin and blood pressure medications. He still complains of dizziness. Compared to yesterday orthostatics have slightly improved. Will go ahead with cosyntropin stimulation test today. Plan for discharge to rehab tomorrow. PDMP PDMP Reviewed: Not Reviewed Attestations 2 Medical Necessity Statement*: Needs continued hospitalization for monitoring of blood pressure secondary to orthostatic hypotension. Possible discharge in next 24 to 48 hours. Diagnoses Closed fracture of left hip, initial encounter S72.002A Encounter type: initial encounter Hyperglycemia R73.9 Orthostatic hypotension I95.1 Diabetes, type I E10.9 HLD (hyperlipidemia) E78.5 Episodic lightheadedness R42 Dizziness on standing R42 Hypotension I95.9 Orthostatic lightheadedness R42
[2024-06-10 13:14] LABS: Cosyntropin Baseline 18.67 mcg/dL
--- NOTE | 2024-06-10 14:29 | PC.SOCIAL ---
IMM updated IMM dated and initialed, Copy given to patient and copy placed in chart.
[2024-06-10 14:43] LABS: Cosyntropin 30 Minute 26.09 mcg/dL
[2024-06-10 14:55] LABS: Cosyntropin 1 Hour 28.97 mcg/dL
[2024-06-10 16:17] LABS: Glucose Point of Care 234 mg/dL (70-110)
[2024-06-10 20:34] LABS: Glucose Point of Care 358 mg/dL (70-110)
[2024-06-10] MEDS: insulin glargine 100 units/1 mL 15 UNIT SUBCUT (21:08)
[2024-06-11] MEDS: acetaminophen 325 mg Tablet 650 MG PO ×2 (01:10→20:19)
[2024-06-11 04:00] VITALS: BP 132/62; PULSE 63; RESP 17; TEMP 36.9; O2SAT 98
[2024-06-11 05:12] LABS: Basophils % 0.4 %; Eosinophils # 0.1 10^3/uL (0.0-0.8); Eosinophils % 1.4 %; Hematocrit 28.5 % (37-53); Lymphocytes # 2.2 10^3/uL (0.8-4.8); Lymphocytes % 29.8 %; Mean Corpuscular Hemoglobin 27.6 pg (27-33); Mean Corpuscular Volume 83.8 fl (82-101); Mean Platelet Volume 10.4 fL (7.4-10.4); Monocytes # 1.2 10^3/uL (0.2-0.9); Monocytes % 16.6 %; Neutrophils # 3.68 10^3/uL (1.8-7.7); Neutrophils % 51.1 %; Nucleated Red Blood Cells % 0 %; Platelet Count 409 10^3/cmm (157-399); Red Cell Distribution Width 14.6 % (12.1-15.1); White Blood Count 7.21 10^3/uL (3.29-11.43)
[2024-06-11 05:27] LABS: Anion Gap 11.7 (5-19); Blood Urea Nitrogen 14 mg/dL (8-23); Calcium 8.8 mg/dL (8.5-10.5); Carbon Dioxide 26 mmol/L (22-29); Chloride 98 mmol/L (98-107); Creatinine Clr Calc Pharmacy 72.5978; Glucose 159 mg/dL (65-115); Magnesium 1.7 mg/dL (1.7-2.3); Osmolality Calculated 278 mOsm/kg (285-295); Potassium 3.7 mmol/L (3.5-5.1); Sodium 132 mmol/L (136-145)
[2024-06-11] MEDS: pantoprazole DR 40 mg Tablet PO (06:24)
[2024-06-11 06:34] LABS: Glucose Point of Care 161 mg/dL (70-110)
[2024-06-11 08:00] VITALS: BP 144/89; PULSE 85; RESP 16; TEMP 37; O2SAT 93
--- NOTE | 2024-06-11 09:27 | PM.DCS ---
Discharge Providers Date of Admission: 06/03/24 13:31 Date of Discharge: June 11, 2024 Attending Provider at Admission: Dheeraj Contreras Attending Provider at Discharge: Alysha Shen MD Primary Care Provider: VERONICA Herrera Diagnoses at Discharge Discharge Diagnosis (1) Closed left hip fracture: Status: Acute Qualifiers: Encounter type: initial encounter Qualified Code(s): S72.002A - Fracture of unspecified part of neck of left femur, initial encounter for closed fracture (2) Hyperglycemia: Status: Acute (3) Orthostatic hypotension: Status: Acute (4) Diabetes, type I: Status: Acute (5) HLD (hyperlipidemia): Status: Acute (6) Episodic lightheadedness: Status: Acute (7) Dizziness on standing: Status: Acute (8) Hypotension: Status: Acute (9) Orthostatic lightheadedness: Status: Acute Reason for Visit Reason for Visit: FALL L HIP PAIN Physical Exam Urinary Catheter Management: Daniel: Cath Placed During This Visit: yes, but has since been removed by the nurse Reason for Continuing Indwelling Catheter: Decision to DC Catheter Urinary Catheter Date of Insertion: 06/03/24 Urinary Catheter Time of Insertion: 10:15 Date Urinary Catheter Removed: 06/04/24 Time Urinary Catheter Discontinued: 06:55 Discharge Data Studies Completed and Pending Completed Studies During Hospitalization Category Date Time Status CT cervical spin wo con* [id number] Stat Cat Scan 06/03/24 08:[address] head wo con* [id number] Stat Cat Scan 06/03/24 08:17 Completed XR chest 1V portable [id number] Stat Exams 06/03/24 08:17 Completed XR elbow LT min 3V* [id number] Stat Exams 06/03/24 08:18 Completed XR hip LT 2-3V wo/w pel* [id number] Routine Exams 06/05/24 14:42 Completed XR hip LT 2-3V wo/w pel* [id number] Stat Exams 06/03/24 08:06 Completed CV. echo complete* [id number] Stat Ultrasound 06/08/24 12:41 Completed Radiology Impressions Cervical Spine CT 06/03/24 08:17 IMPRESSION: 1. No acute cervical spine fracture. 2. 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 3. Prior C5-6 and C6-7 fusion is complete and stable. Chest X-Ray 06/03/24 08:17 IMPRESSION: 1. No acute cardiopulmonary finding. Head CT 06/03/24 08:17 IMPRESSION: 1. No acute intracranial hemorrhage or edema. 2. Moderate cerebral atrophy and small vessel ischemic changes are chronic. 3. Mild soft tissue contusion LEFT frontal scalp. No fracture. Elbow X-Ray 06/03/24 08:18 IMPRESSION: 1. No fracture or other significant finding. Hip/Pelvis X-Ray 06/05/24 14:42 IMPRESSION: 1. Postoperative radiographs status post total left hip arthroplasty with components in expected position. Laboratory Results WBC 7.21 10^3/uL (3.29-11.43) 06/11/24 04:13 RBC 3.40 10^6/uL (3.85-5.65) L 06/11/24 04:13 Hgb 9.40 g/dL (11.27-16.99) L 06/11/24 04:13 Hct 28.5 % (37-53) L 06/11/24 04:13 MCV 83.8 fl (82-101) 06/11/24 04:13 MCH 27.6 pg (27-33) 06/11/24 04:13 MCHC 33.0 g/dL (30-55) 06/11/24 04:13 RDW 14.6 % (12.1-15.1) 06/11/24 04:13 Plt Count 409 10^3/cmm (157-399) H 06/11/24 04:13 MPV 10.4 fL (7.4-10.4) 06/11/24 04:13 Neut % (Auto) 51.1 % 06/11/24 04:13 Lymph % (Auto) 29.8 % 06/11/24 04:13 [place] % (Auto) 16.6 % 06/11/24 04:13 Eos % (Auto) 1.4 % 06/11/24 04:13 Baso % (Auto) 0.4 % 06/11/24 04:13 Neut # (Auto) 3.68 10^3/uL (1.8-7.7) 06/11/24 04:13 Lymph # (Auto) 2.2 10^3/uL (0.8-4.8) 06/11/24 04:13 [place] # (Auto) 1.2 10^3/uL (0.2-0.9) H 06/11/24 04:13 Eos # (Auto) 0.1 10^3/uL (0.0-0.8) 06/11/24 04:13 Baso # (Auto) 0.0 10^3/uL (0.0-0.1) 06/11/24 04:13 Nucleated RBC % (auto) 0 % 06/11/24 04:13 Nucleated RBCs # 0.0 /100WBC 06/11/24 04:13 Specimen Type Venous 06/03/24 10:52 Sample Site Not specified 06/03/24 10:52 [place] Test N/a 06/03/24 10:52 VBG pH 7.43 (7.32-7.42) H 06/03/24 10:52 VBG pCO2 39.5 mmHg (41-51) L 06/03/24 10:52 VBG pO2 < 17.0 mmHg (25-40) L 06/03/24 10:52 VBG HCO3 26.3 mmol/L (24-28) 06/03/24 10:52 VBG Base Excess 1.9 mmol/L (-3.0-3.0) 06/03/24 10:52 VBG Hematocrit 43.0 % (42-52) 06/03/24 10:52 O2 Delivery Device Not Reportable 06/03/24 10:52 Programming Development Project Manager ID [email or web address] 06/03/24 10:52 Sodium 132 mmol/L (136-145) L 06/11/24 04:13 Potassium 3.7 mmol/L (3.5-5.1) 06/11/24 04:13 Chloride 98 mmol/L (98-107) 06/11/24 04:13 Carbon Dioxide 26 mmol/L (22-29) 06/11/24 04:13 Anion Gap 11.7 (5-19) 06/11/24 04:13 BUN 14 mg/dL (8-23) 06/11/24 04:13 Creatinine 1.0 mg/dL (0.7-1.2) 06/11/24 04:13 GFR Calculation Not Reportable 06/11/24 04:13 Glucose 159 mg/dL (65-115) H 06/11/24 04:13 POC Glucose 161 mg/dL (70-110) H 06/11/24 06:31 Calculated Osmolality 278 mOsm/kg (285-295) L 06/11/24 04:13 Lactate 1.9 mmol/L (0.5-2.2) 06/08/24 13:08 Calcium 8.8 mg/dL (8.5-10.5) 06/11/24 04:13 Magnesium 1.7 mg/dL (1.7-2.3) 06/11/24 04:13 Total Bilirubin 1.2 mg/dL (0.15-1.2) 06/06/24 02:05 AST 41 U/L (0-40) H 06/06/24 02:05 ALT 12 U/L (0-41) 06/06/24 02:05 Alkaline Phosphatase 70 U/L (40-130) 06/06/24 02:05 Total Protein 5.5 g/dL (6.6-8.7) L 06/06/24 02:05 Albumin 2.6 g/dL (3.5-5.2) L 06/06/24 02:05 Globulin 2.9 g/dL (1.3-4.6) 06/06/24 02:05 25-OH Vitamin D Total 14 ng/mL (30-100) L 06/09/24 04:03 TSH 1.79 uIU/mL (0.27-4.20) 06/09/24 04:03 Free T4 1.16 ng/dL (0.82-1.77) 06/09/24 04:03 Random Cortisol 6.90 ug/dL (2.47-19.5) 06/10/24 08:59 Cortisol Response 06/10/24 12:33 Urine Color Yellow (Yellow) 06/03/24 09:23 Urine Appearance Clear (CLEAR) 06/03/24 09:23 Urine pH 5.5 (5-7) 06/03/24 09:23 Ur Specific [place] 1.038 (1.005-1.030) H 06/03/24 09:23 Urine Protein Negative (Negative) 06/03/24 09:23 Urine Glucose (UA) 3+ (Normal) H 06/03/24 09:23 Urine Ketones 1+ (Negative) H 06/03/24 09:23 Urine Blood Negative (Negative) 06/03/24 09:23 Urine Nitrate Negative (Negative) 06/03/24 09:23 Urine Bilirubin Negative (Negative) 06/03/24 09:23 Urine Urobilinogen 1.0 mg/dL (Negative) 06/03/24 09:23 Ur Leukocyte Esterase Negative (Negative) 06/03/24 09:23 Amorphous Sediment Not Reportable 06/03/24 09:23 Serum Ketones Negative (Negative) 06/03/24 08:38 Blood Type A Positive 06/07/24 14:07 Rho(D) Type Rh positive 06/07/24 14:07 Antibody Screen Negative 06/07/24 14:07 Vitals Last Vital Signs Temp 98.6 F 06/11/24 08:00 Pulse 85 06/11/24 08:00 Resp 16 06/11/24 08:00 BP 144/89 06/11/24 08:00 Pulse Ox 93 06/11/24 08:00 O2 Del Method Room Air 06/11/24 08:00 Discharge Plan Discharge Patient Disposition: Xfer SNF Condition: Stable Prescriptions: New midodrine 5 mg Tablet 5 mg PO TID Qty: 90 0RF (DME) compression socks, medium Misc See Rx Instructions .Route Qty: 1 0RF Rx Instructions: As directed Continued Praluent Pen 75 mg/mL pen injector 75 mg SUBCUT Q14D Qty: 2 2RF pantoprazole [Protonix] 40 mg Tablet,Delayed Release (Dr/Ec) 40 mg PO QAM cholecalciferol (vitamin D3) [Vitamin D3] 10 mcg (400 unit) Capsule 10 mcg PO DAILY insulin aspart U-100 100 unit/mL (3 mL) Insulin Pen See Rx Instructions .ROUTE .COMPLEX Rx Instructions: inject as directed under the skin via insulin pump for diabetes, discard any vial 28 days after opening aspirin 325 mg Tablet 325 mg PO DAILY Qty: 30 0RF metoprolol tartrate 25 mg Tablet 25 mg PO BID@0900,2100 Qty: 60 0RF Held nifedipine 30 mg Tablet Extended Release 30 mg PO DAILY Hold Instructions: see pcp lisinopril 20 mg Tablet 20 mg PO DAILY Hold Instructions: see pcp tamsulosin 0.4 mg Capsule 0.4 mg PO DAILY Hold Instructions: see pcp, being held due to orthostatic hypotenstion Discharge Orders: Discharge Order (Routine); Ordered 06/11/24 Ordered By: Alysha Hermelinda Referrals: Manuel Love DO [Physician] - 06/16/24 8:00 am Prabhakar Kim M.D [Physician] - 4-7 days (We have notified your physician's clinic of the need for a follow-up appointment to be scheduled. If you have not heard from them within the next 2 business days, please call them directly. ) Sonja Figueroa FNP [Primary Care Provider] - 06/14/24 10:30 am Discharge Diet: Cardiac and Diabetic Discharge Activity: Resume usual activity Patient Instructions: Acute Wound Care (DC), Post Anesthesia Care Activity Restrictions/Additional Instructions: You are being discharged from the hospital today during which time you have been under the care of Dr. Love. You had a left hip fracture. You were treated for this injury with left hip hemiarthroplasty. You may resume you normal diet (including any special diets as directed by your primary doctor) as well as your home medications. You should follow up with you primary doctor if you have any questions regarding medication you took prior to your stay in the hospital. You may take your pain medication as prescribed. After the first few days, take your pain medication as needed. Do not drive or drink alcohol while taking your pain medication. Your injury may increase your risk of developing a blood clot,or DVT, in your arm or leg. This could potentially dislodge and travel to your lungs and become a life threatening condition called apulmonary embolus,or PE. You have been prescribed aspirin to be taken to prevent this. Frequent movement of the legs will also help prevent this from occurring. If you develop any new or worsening cough, chestpain, bloody sputum or shortness of breath, call 911 or go to the EmergencyRoom. Always keep your surgical incision/dressing clean and dry. If you experience increasing pain at your incision site, redness, swelling, increasing discharge, foul odors, or fevers (greater than 100.4), night sweats or chills you should call the office at the above number. If you feel this is an emergency you should be evaluated in the Emergency Department of a nearby hospital. Orthopedic Patient Instructions Summary: Weight Bearing: As tolerated Activity: As tolerated. Diet: Regular. Wound Care: Keep dressing clean and dry Anticoagulation: Aspirin Pain Medication: Take only as needed. Ice, rest and elevation will be of great benefit. Please plan to follow-up delano Love in 2 weeks. You will need to call the clinic [phone] to schedule this visit. Thank you far allowing me to participate in your care. Do not hesitate to call the office with any questions or concerns. Coding Level of Care Code Acute Code for Chg Fwd Diagnoses Closed fracture of left hip, initial encounter S72.002A Encounter type: initial encounter Hyperglycemia R73.9 Orthostatic hypotension I95.1 Diabetes, type I E10.9 HLD (hyperlipidemia) E78.5 Episodic lightheadedness R42 Dizziness on standing R42 Hypotension I95.9 Orthostatic lightheadedness R42
[2024-06-11] MEDS: midodrine 5 mg TABLET PO ×3 (09:42→20:19)
[2024-06-11] MEDS: aspirin 325 mg Tablet PO (09:42)
[2024-06-11] MEDS: insulin lispro 100 unit/1 mL SUBCUT ×4 (09:43→21:47)
[2024-06-11] MEDS: morphine 4 mg/mL SDV 1 mL 2 MG IVP (09:43)
[2024-06-11 11:20] LABS: Glucose Point of Care 203 mg/dL (70-110)
[2024-06-11 12:00] VITALS: BP 66/39; PULSE 68; RESP 18
[2024-06-11 12:36] VITALS: BP 100/40; BP 122/58; BP 86/52; PULSE 72
--- NOTE | 2024-06-11 13:58 | PC.NURSE ---
This nurse called [facility] and spoke with BENITO eBck Weekend Sinter Press Operator to call report. BENITO Beck reported she was unaware they were receiving a patient over the weekend and the usually don't accept patients over the weekend. BENITO Beck stated she would need to check on some things and give this nurse a call back. BENITO Solis was notified. After a few minutes, BENITO Beck Weekend Sinter Press Operator at [facility] called back and stated the patient had not been entered into the system in order to have patient's medication delivered. BENITO Beck stated that unfortunately, they would be unable to accept the patient over the weekend.
[2024-06-11] MEDS: ibuprofen 200 mg Tablet 400 MG PO (14:33)
--- NOTE | 2024-06-11 14:33 | P.PN_ITS ---
Subjective 2 Subjective: Seen this morning. No acute events overnight. Patient is still on IV morphine because he starts to itch with oral morphine. Blood pressures laying flat in supine have been good However he does tend to drop to 80 systolic upon standing which is definitely an improvement compared to prior days. Previously he was dropping to 60 and 70 systolic. Hemoglobin is stable. Vitals/I&O/Wt Last Vital Signs Temp 98.6 F 06/11/24 08:00 Pulse 72 06/11/24 12:36 Resp 18 06/11/24 12:00 BP 86/52 06/11/24 12:36 Pulse Ox 93 06/11/24 08:00 O2 Del Method Room Air 06/11/24 08:00 06/10/24 06/11/24 06/11/24 22:59 06:59 14:59 Intake Total 240 / 967.5 360 / 360 Output Total 1400 / 2075 1200 / 3275 850 / 850 Balance -1160 / -1107.5 -1200 / -2307.5 -490 / -490 Weight last 48 hrs Weight 99.246 kg Weight 99.7 kg Physical Exam 2 Narrative: General: No acute distress, AO x3 HEENT: PERRLA, pupils bilaterally equal and reactive, pallors not present Chest: Normal vesicular breath sounds, no added sounds, equal good air entry bilaterally CVS: S1-S2 regular, no murmurs, no tachycardia, no gallops, no rubs Abdomen: Soft, nontender, no organomegaly, bowel sounds present Neuro: No focal deficits, no facial deformity, AO x3, Urinary Catheter Management: Daniel: Cath Placed During This Visit: yes, but has since been removed by the nurse Reason for Continuing Indwelling Catheter: Decision to DC Catheter Urinary Catheter Date of Insertion: 06/03/24 Urinary Catheter Time of Insertion: 10:15 Date Urinary Catheter Removed: 06/04/24 Time Urinary Catheter Discontinued: 06:55 Data 06/11/24 04:13 06/11/24 04:13 A&P Assessment and plan (1) Closed left hip fracture: Hip pain after fall. Reported mechanical fall, although on additional questioning he does state that he gets lightheaded when standing up frequently, due to this he has been taking his antihypertensives only intermittently. Will benefit from orthostatic blood pressures once able to have them done. Reviewed vitals, CBC, VBG requested, reviewed, CMP, UA, serum ketones, EKG, hip x-ray, C- spine x-ray, chest x-ray, head CT, elbow x-ray. Reviewed ER provider note, discussed with ER provider. With severe hyperglycemia, received regular insulin IV, dose repeated, blood sugar with improvement down to 384. With severity of hyperglycemia, he also has not brought his insulin pump, may initially admitted to ICU to help regulate severe hyperglycemia with insulin drip. Ketones in the urine, serum ketones negative, VBG without acidemia. Received fluid resuscitation. Will request recheck chemistry for tonight. Monitor blood glucose. Discussed with anesthesia. Qualifiers: Encounter type: initial encounter Qualified Code(s): S72.002A - Fracture of unspecified part of neck of left femur, initial encounter for closed fracture (2) Hyperglycemia: Severe hyperglycemia, up as high as 562. Received 10 units of regular insulin, on recheck still hyperglycemic, additional 10 units given, and recheck with improvement to 384. Urinalysis returned with 1+ ketones, serum ketones checked, negative. VBG requested, not acidemic to suggest active ketoacidosis. Will add Lantus 15 units nightly, slight scale insulin. (3) Orthostatic hypotension: (4) Diabetes, type I: (5) HLD (hyperlipidemia): (6) Episodic lightheadedness: (7) Dizziness on standing: (8) Hypotension: (9) Orthostatic lightheadedness: Plan Hyponatremia: Sodium 128 due to severe hyperglycemia. Continue FMS glucose. DM1: Normally on insulin pump, appears to get variable basal infusion placed during the last visit in December 2023 close to 20 units a day. He does not know his current rate. He did not bring his pump with him. Will give him insulin Lantus 15 units, sliding scale insulin. Monitor POC glucose. Monitor for risk of hypo-, hyperglycemia. HTN: Takes his lisinopril only intermittently due to feeling lightheaded when he stands up. Would benefit from assessment of orthostatic blood pressures. June 04, 2024 Patient's status post left hip hemiarthroplasty yesterday. States that he was in pain today therefore unable to participate with PT for a long time. Blood sugar is well-controlled. Continue morphine as needed for pain management. Add oral tramadol as an iv opiate alternative. Blood pressure ranging on the softer side of 100 systolic, continue to hold antihypertensives. Resume aspirin 325 mg p.o. daily which will also serve as DVT prophylaxis. June 05, 2024. Patient attempted to get out of bed, was motivated to walk with a walker, however thereafter stated he was in too much pain and sat back down. Blood pressure soft, 90/60. Mild hemoglobin drop at 10.6. Will recheck H&H. No dizziness or other syncopal symptoms. Creatinine mildly up at 1.5. Low sodium 131. Patient is clinically appearing to be dehydrated. Will start him on normal saline at 75 cc an hour. Continue as needed morphine for pain management.Tramadol was not ordered due to reported allergy. Chart notes additional allergies to oxycodone, hydromorphone, tramadol and lidocaine. Cannot use NSAIDs due to worsening kidney function. Limited with pain medication optimization due to multiple reported allergies. 06/06/2024 Seen this morning. Patient worked with physical therapy this morning and was able to get from bed to chair. He states he is not interested in going to rehab and would like to go home to do outpatient physical therapy at the OR. Discussed with physical therapy as well however patient is requiring quite a bit of assistance. We will just have to see how patient does going forward. Creatinine 1.3 today. Hemoglobin steadily trending down. It is 9.2 today. He also had bleeding at surgical site. Hemoglobin 13.7 on admission. Will continue to monitor. Once hemoglobin stable for 24 hours we will consider discharge. Will have to formulate a safe discharge plan for patient. 06/07/2024 Will stop IV morphine at this time and switch to oral every 4 hours as needed. Will continue to watch blood pressure. Recheck CBC at 6 PM. Patient may require blood transfusion going forward. Secondary to history of coronary artery disease I will transfuse for hemoglobin less than 8. Continue Protonix 40 daily Stop IV fluids. Hemoglobin being low may have a dilutional component. There were mainly added secondary to low blood pressures. Blood pressure has been stable in the last 24 hours. We will stop further fluids and encourage oral intake. Discussed with patient's surgeon. We will apply pressure dressing to surgical site. 06/08/2024 I will switch patient back to IV morphine at this time as he has no adverse reactions to that. In the meantime I will try to figure out a pain regimen for him going forward. He should not be needing opioids past 3 to 4 days postop and we may be able to switch to a nonopioid medication however he is also reluctant to take Tylenol. He was orthostatic positive this morning. 1 L normal saline bolus has been ordered. Will check stat CBC. Will check lactic acid I will check an echocardiogram. Transfuse for hemoglobin less than 8 We will add continuous IV fluids 75 cc/h after the bolus and continue to monitor blood pressure every 2 hours. Patient is on tamsulosin at home which has a side effect of orthostatic hypotension. I will hold that at this time. Initial plan was to discharge patient to rehab today however with new events as noted above he will be unsafe to be discharged and blood pressure will need to be monitored further. 06/09/2024 Will start midodrine 5 mg 3 times daily and see response to blood pressure. Patient does have severe orthostatic hypotension. This has been a barrier to discharge. Have discussed with patient and he states that he has been having this for quite some time now where he gets lightheaded and dizzy when he gets up. This is not a new transient finding after surgery. He states that he has been falling at home because he gets too lightheaded. 6 months ago he had to have shoulder surgery and now he had to have hip surgery. He states he tries to get up really slow. He remains dizzy for a little while and then it does improve eventually. Last few days patient has had hypotension issues and initially was on IV fluids which did not help. We stopped opioids which also did not help. I will if patient does have orthostatic hypotension from prior which was undiagnosed until now. We will start midodrine 5 3 times daily and this may be uptitrated as an outpatient in few weeks. He will need continued monitoring of his blood pressure. We will continue to keep patient in the hospital today for monitoring. If blood pressures are starting to improve in next 24 hours we will consider discharging to rehab. ? I would like to stop tamsulosin for few weeks at this time. Patient to follow-up with primary care doctor going forward. ? Echocardiogram resulted. EF is normal. He also had a cath done in April with minimal coronary artery disease. No intervention needed. He does have a 3.5 cm ascending aorta. He will need to have follow-up with PCP with follow-up imaging in 6 months. ? Patient has itching reaction with oral morphine. Will switch to IV morphine at this time. At discharge we will consider discharging on nonopioid formulation for pain medication. ? Hemoglobin has been stable. Hemoglobin 9 this morning. ? I will stop IV fluids going forward. Hopeful for discharge in next 24 to 48 hours. 06/10/2024 Upon standing patient blood pressure dropped to 70 systolic. Discussed with endocrinology over the phone. Will be going ahead with a cosyntropin stimulation test. If test is positive patient will need to be started on steroids and if test is negative he may be able to discharge on current midodrine. Dose may have to be uptitrated as an outpatient. Continue to hold tamsulosin and blood pressure medications. He still complains of dizziness. Compared to yesterday orthostatics have slightly improved. Will go ahead with cosyntropin stimulation test today. Plan for discharge to rehab tomorrow. 06/11/2024 Orthostatic vitals rechecked this morning. Patient dropped to 80 systolic upon standing. Consider bedrest is negative. Patient will not need steroids at time of discharge. ? Plan to send on midodrine 5 3 times daily and dose may be uptitrated in the next few weeks to 10 3 times daily if remains orthostatic positive. Pending discharge to rehab. Nursing facility will not be able to fill patient's med till Thursday. Initially he was discharged today however because meds cannot be filled patient cannot leave till Thursday. PDMP PDMP Reviewed: Not Reviewed Attestations 2 Medical Necessity Statement*: Pending discharge to rehab. Diagnoses Closed fracture of left hip, initial encounter S72.002A Encounter type: initial encounter Hyperglycemia R73.9 Orthostatic hypotension I95.1 Diabetes, type I E10.9 HLD (hyperlipidemia) E78.5 Episodic lightheadedness R42 Dizziness on standing R42 Hypotension I95.9 Orthostatic lightheadedness R42
[2024-06-11 16:00] VITALS: BP 149/75; PULSE 70; RESP 16; TEMP 36.7; O2SAT 95
[2024-06-11 16:37] LABS: Glucose Point of Care 259 mg/dL (70-110)
[2024-06-11 20:00] VITALS: BP 135/67; PULSE 70; RESP 17; TEMP 36.6; O2SAT 97
[2024-06-11 21:11] LABS: Glucose Point of Care 339 mg/dL (70-110)
[2024-06-11] MEDS: insulin glargine 100 units/1 mL 15 UNIT SUBCUT (21:49)
[2024-06-12] VITALS: BP 120/63; PULSE 64; RESP 17; TEMP 36.6; O2SAT 95
[2024-06-12 04:00] VITALS: BP 148/82; PULSE 72; RESP 18; TEMP 36.5; O2SAT 96
[2024-06-12 04:05] LABS: Basophils % 0.4 %; Eosinophils # 0.3 10^3/uL (0.0-0.8); Eosinophils % 3.8 %; Hematocrit 25.5 % (37-53); Lymphocytes # 2.5 10^3/uL (0.8-4.8); Mean Corpuscular HGB Conc 33.7 g/dL (30-55); Mean Corpuscular Hemoglobin 27.6 pg (27-33); Mean Corpuscular Volume 81.7 fl (82-101); Mean Platelet Volume 10.5 fL (7.4-10.4); Monocytes # 1.2 10^3/uL (0.2-0.9); Monocytes % 16.8 %; Neutrophils # 2.92 10^3/uL (1.8-7.7); Neutrophils % 42.1 %; Nucleated Red Blood Cells % 0 %; Platelet Count 398 10^3/cmm (157-399); Red Blood Count 3.12 10^6/uL (3.85-5.65); Red Cell Distribution Width 14.2 % (12.1-15.1); White Blood Count 6.92 10^3/uL (3.29-11.43)
[2024-06-12 04:29] LABS: Blood Urea Nitrogen 19 mg/dL (8-23); Calcium 8.4 mg/dL (8.5-10.5); Carbon Dioxide 24 mmol/L (22-29); Chloride 101 mmol/L (98-107); Creatinine Clr Calc Pharmacy 65.8696; Glucose 144 mg/dL (65-115); Osmolality Calculated 283 mOsm/kg (285-295); Sodium 134 mmol/L (136-145)
[2024-06-12 06:22] LABS: Glucose Point of Care 124 mg/dL (70-110)
[2024-06-12] MEDS: pantoprazole DR 40 mg Tablet PO (06:37)
[2024-06-12 07:34] VITALS: BP 143/76; PULSE 69; RESP 16; TEMP 36.6; O2SAT 94
[2024-06-12] MEDS: aspirin 325 mg Tablet PO (09:49)
[2024-06-12] MEDS: midodrine 5 mg TABLET PO (09:49)
[2024-06-12 10:54] LABS: Glucose Point of Care 197 mg/dL (70-110)
[2024-06-12 11:06] VITALS: BP 134/72; PULSE 79; RESP 16; TEMP 36.7; O2SAT 95
--- NOTE | 2024-06-12 11:39 | PC.NURSE ---
Report called to BENITO Gambino at [facility]. All questions were answered.
[2024-06-12] MEDS: acetaminophen 325 mg Tablet 650 MG PO (12:54)
[2024-06-12] MEDS: insulin lispro 100 unit/1 mL SUBCUT (12:54)
--- NOTE | 2024-06-12 13:14 | PC.NURSE ---
All information faxed to [facility]. Patient's IV was removed. Patient transferred into wheelchair with one assist and was escorted to exit with son, by ALLISON Zheng at 1307.
--- NOTE | 2024-06-12 13:16 | P.DS_ITS ---
Discharge Providers Date of Admission: 06/03/24 13:31 Date of Discharge: June 12, 2024 Attending Provider at Admission: Dheeraj Contreras Attending Provider at Discharge: Alysha Shen MD Primary Care Provider: VERONICA Herrera Diagnoses at Discharge Discharge Diagnosis (1) Closed left hip fracture: Status: Acute Qualifiers: Encounter type: initial encounter Qualified Code(s): S72.002A - Fracture of unspecified part of neck of left femur, initial encounter for closed fracture (2) Hyperglycemia: Status: Acute (3) Orthostatic hypotension: Status: Acute (4) Diabetes, type I: Status: Acute (5) HLD (hyperlipidemia): Status: Acute (6) Episodic lightheadedness: Status: Acute (7) Dizziness on standing: Status: Acute (8) Hypotension: Status: Acute (9) Orthostatic lightheadedness: Status: Acute Reason for Visit Reason for Visit: FALL L HIP PAIN Hospital Course Hospital Course Patient presented to the hospital with close left hip fracture and underwent surgery with Dr. Love. Postsurgically there were significant issues with his blood pressure being low especially when physical therapy would attempt to work with him. Had a detailed discussion with the patient and he revealed that he has been having this issue for quite some time at this point and that is what led to his falls as well. Previously had shoulder injury and now hip fracture. Cosyntropin stimulation test was done which was negative. Echocardiogram also completed which showed normal EF. He also had a coronary angiogram done recently with minimal coronary artery disease. Patient was positive for orthostatic hypotension on multiple occasions. I stopped his tamsulosin during hospitalization and started patient on midodrine. Discussed with cardiology and endocrinology outpatient in detail. Patient to be sent to nursing facility in a controlled setting on midodrine 5 mg 3 times a day and dose may be uptitrated in the next few weeks if patient remains orthostatic positive. Since initiation of midodrine he was monitored in the hospital with improvements in blood pressure upon position change. Patient's blood pressure initially systolic was in 60s upon standing however now has improved to 80-86 systolic. He has been advised to move slowly and change positions slowly and give his body time to adjust. If patient fails midodrine may consider addition of fludrocortisone, salt tablets. Patient will need follow-up appointment with cardiology as an outpatient. Patient in agreement with above and will be discharged to nursing facility in stable condition at this time. Physical Exam Narrative: General: No acute distress, AO x3 HEENT: PERRLA, pupils bilaterally equal and reactive, pallors not present Chest: Normal vesicular breath sounds, no added sounds, equal good air entry bilaterally CVS: S1-S2 regular, no murmurs, no tachycardia, no gallops, no rubs Abdomen: Soft, nontender, no organomegaly, bowel sounds present Neuro: No focal deficits, no facial deformity, AO x3, Urinary Catheter Management: Daniel: Cath Placed During This Visit: yes, but has since been removed by the nurse Reason for Continuing Indwelling Catheter: Decision to DC Catheter Urinary Catheter Date of Insertion: 06/03/24 Urinary Catheter Time of Insertion: 10:15 Date Urinary Catheter Removed: 06/04/24 Time Urinary Catheter Discontinued: 06:55 Discharge Data Studies Completed and Pending Completed Studies During Hospitalization Category Date Time Status CT cervical spin wo con* [id number] Stat Cat Scan 06/03/24 08:[address] head wo con* [id number] Stat Cat Scan 06/03/24 08:17 Completed XR chest 1V portable [id number] Stat Exams 06/03/24 08:17 Completed XR elbow LT min 3V* [id number] Stat Exams 06/03/24 08:18 Completed XR hip LT 2-3V wo/w pel* [id number] Routine Exams 06/05/24 14:42 Completed XR hip LT 2-3V wo/w pel* [id number] Stat Exams 06/03/24 08:06 Completed CV. echo complete* [id number] Stat Ultrasound 06/08/24 12:41 Completed Radiology Impressions Cervical Spine CT 06/03/24 08:17 IMPRESSION: 1. No acute cervical spine fracture. 2. 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 3. Prior C5-6 and C6-7 fusion is complete and stable. Chest X-Ray 06/03/24 08:17 IMPRESSION: 1. No acute cardiopulmonary finding. Head CT 06/03/24 08:17 IMPRESSION: 1. No acute intracranial hemorrhage or edema. 2. Moderate cerebral atrophy and small vessel ischemic changes are chronic. 3. Mild soft tissue contusion LEFT frontal scalp. No fracture. Elbow X-Ray 06/03/24 08:18 IMPRESSION: 1. No fracture or other significant finding. Hip/Pelvis X-Ray 06/05/24 14:42 IMPRESSION: 1. Postoperative radiographs status post total left hip arthroplasty with components in expected position. Laboratory Results WBC 6.92 10^3/uL (3.29-11.43) 06/12/24 02: RBC 3.12 10^6/uL (3.85-5.65) L 06/12/24 02:25 Hgb 8.60 g/dL (11.27-16.99) L 06/12/24 02:25 Hct 25.5 % (37-53) L 06/12/24 02:25 MCV 81.7 fl (82-101) L 06/12/24 02: MCH 27.6 pg (27-33) 06/12/24 02: MCHC 33.7 g/dL (30-55) 06/12/24 02: RDW 14.2 % (12.1-15.1) 06/12/24 02: Plt Count 398 10^3/cmm (157-399) 06/12/24 02: MPV 10.5 fL (7.4-10.4) H 06/12/24 02:25 Neut % (Auto) 42.1 % 06/12/24 02:25 Lymph % (Auto) 36.0 % 06/12/24 02:25 [place] % (Auto) 16.8 % 06/12/24 02:25 Eos % (Auto) 3.8 % 06/12/24 02: Baso % (Auto) 0.4 % 06/12/24 02: Neut # (Auto) 2.92 10^3/uL (1.8-7.7) 06/12/24 02:25 Lymph # (Auto) 2.5 10^3/uL (0.8-4.8) 06/12/24 02:25 [place] # (Auto) 1.2 10^3/uL (0.2-0.9) H 06/12/24 02:25 Eos # (Auto) 0.3 10^3/uL (0.0-0.8) 06/12/24 02:25 Baso # (Auto) 0.0 10^3/uL (0.0-0.1) 06/12/24 02:25 Nucleated RBC % (auto) 0 % 06/12/24 02:25 Nucleated RBCs # 0.0 /100WBC 06/12/24 02:25 Specimen Type Venous 06/03/24 10:52 Sample Site Not specified 06/03/24 10:52 Kenney Test N/a 06/03/24 10:52 VBG pH 7.43 (7.32-7.42) H 06/03/24 10:52 VBG pCO2 39.5 mmHg (41-51) L 06/03/24 10:52 VBG pO2 < 17.0 mmHg (25-40) L 06/03/24 10:52 VBG HCO3 26.3 mmol/L (24-28) 06/03/24 10:52 VBG Base Excess 1.9 mmol/L (-3.0-3.0) 06/03/24 10:52 VBG Hematocrit 43.0 % (42-52) 06/03/24 10:52 O2 Delivery Device Not Reportable 06/03/24 10:52 Universal Winding Machine Operator ID [email or web address] 06/03/24 10:52 Sodium 134 mmol/L (136-145) L 06/12/24 02:25 Potassium 4.0 mmol/L (3.5-5.1) 06/12/24 02:25 Chloride 101 mmol/L (98-107) 06/12/24 02:25 Carbon Dioxide 24 mmol/L (22-29) 06/12/24 02:25 Anion Gap 13.0 (5-19) 06/12/24 02:25 BUN 19 mg/dL (8-23) 06/12/24 02:25 Creatinine 1.1 mg/dL (0.7-1.2) 06/12/24 02:25 GFR Calculation Not Reportable 06/12/24 02:25 Glucose 144 mg/dL (65-115) H 06/12/24 02:25 POC Glucose 197 mg/dL (70-110) H 06/12/24 10:35 Calculated Osmolality 283 mOsm/kg (285-295) L 06/12/24 02:25 Lactate 1.9 mmol/L (0.5-2.2) 06/08/24 13:08 Calcium 8.4 mg/dL (8.5-10.5) L 06/12/24 02:25 Magnesium 1.7 mg/dL (1.7-2.3) 06/11/24 04:13 Total Bilirubin 1.2 mg/dL (0.15-1.2) 06/06/24 02:05 AST 41 U/L (0-40) H 06/06/24 02:05 ALT 12 U/L (0-41) 06/06/24 02:05 Alkaline Phosphatase 70 U/L (40-130) 06/06/24 02:05 Total Protein 5.5 g/dL (6.6-8.7) L 06/06/24 02:05 Albumin 2.6 g/dL (3.5-5.2) L 06/06/24 02:05 Globulin 2.9 g/dL (1.3-4.6) 06/06/24 02:05 25-OH Vitamin D Total 14 ng/mL (30-100) L 06/09/24 04:03 TSH 1.79 uIU/mL (0.27-4.20) 06/09/24 04:03 Free T4 1.16 ng/dL (0.82-1.77) 06/09/24 04:03 Random Cortisol 6.90 ug/dL (2.47-19.5) 06/10/24 08:59 Cortisol Response 06/10/24 12:33 Urine Color Yellow (Yellow) 06/03/24 09:23 Urine Appearance Clear (CLEAR) 06/03/24 09:23 Urine pH 5.5 (5-7) 06/03/24 09:23 Ur Specific [place] 1.038 (1.005-1.030) H 06/03/24 09:23 Urine Protein Negative (Negative) 06/03/24 09:23 Urine Glucose (UA) 3+ (Normal) H 06/03/24 09:23 Urine Ketones 1+ (Negative) H 06/03/24 09:23 Urine Blood Negative (Negative) 06/03/24 09:23 Urine Nitrate Negative (Negative) 06/03/24 09:23 Urine Bilirubin Negative (Negative) 06/03/24 09:23 Urine Urobilinogen 1.0 mg/dL (Negative) 06/03/24 09:23 Ur Leukocyte Esterase Negative (Negative) 06/03/24 09:23 Amorphous Sediment Not Reportable 06/03/24 09:23 Serum Ketones Negative (Negative) 06/03/24 08:38 Blood Type A Positive 06/07/24 14:07 Rho(D) Type Rh positive 06/07/24 14:07 Antibody Screen Negative 06/07/24 14:07 Vitals Last Vital Signs Temp 98.1 F 06/12/24 11:06 Pulse 79 06/12/24 11:06 Resp 16 06/12/24 11:06 BP 134/72 06/12/24 11:06 Pulse Ox 95 06/12/24 11:06 O2 Del Method Room Air 06/12/24 11:06 Discharge Plan Discharge Patient Disposition: Xfer SNF Condition: Stable Prescriptions: New midodrine 5 mg Tablet 5 mg PO TID Qty: 90 0RF (DME) compression socks, medium Misc See Rx Instructions .Route Qty: 1 0RF Rx Instructions: As directed diphenhydramine HCl [Allergy (diphenhydramine)] 12.5 mg/5 mL liquid 6.25 mg PO Q8H PRN (Reason: itching) Qty: 25 0RF insulin glargine [Lantus U-100 Insulin] 100 unit/mL Solution 15 unit SUBCUT BEDTIME Qty: 10 0RF insulin lispro [Humalog U-100 Insulin] 100 unit/mL Solution 0 unit SUBCUT WM&BEDTIME Qty: 10 0RF Continued Praluent Pen 75 mg/mL pen injector 75 mg SUBCUT Q14D Qty: 2 2RF pantoprazole [Protonix] 40 mg Tablet,Delayed Release (Dr/Ec) 40 mg PO QAM cholecalciferol (vitamin D3) [Vitamin D3] 10 mcg (400 unit) Capsule 10 mcg PO DAILY aspirin 325 mg Tablet 325 mg PO DAILY Qty: 30 0RF metoprolol tartrate 25 mg Tablet 25 mg PO BID@0900,2100 Qty: 60 0RF Held nifedipine 30 mg Tablet Extended Release 30 mg PO DAILY Hold Instructions: see pcp lisinopril 20 mg Tablet 20 mg PO DAILY Hold Instructions: see pcp tamsulosin 0.4 mg Capsule 0.4 mg PO DAILY Hold Instructions: see pcp, being held due to orthostatic hypotenstion Discontinued insulin aspart U-100 100 unit/mL (3 mL) Insulin Pen See Rx Instructions .ROUTE .COMPLEX Rx Instructions: inject as directed under the skin via insulin pump for diabetes, discard any vial 28 days after opening Discharge Orders: Discharge Order (Routine); Ordered 06/12/24 Ordered By: Alysha Shen Referrals: Manuel Love DO [Physician] - 06/16/24 8:00 am Prabhakar Kim M.D [Physician] - 4-7 days (We have notified your physician's clinic of the need for a follow-up appointment to be scheduled. If you have not heard from them within the next 2 business days, please call them directly. ) Sonja Figueroa FNP [Primary Care Provider] - 06/14/24 10:30 am Discharge Diet: Cardiac and Diabetic Discharge Activity: Resume usual activity Patient Instructions: Acute Wound Care (DC), Hypotension (DC), Post Anesthesia Care Activity Restrictions/Additional Instructions: You are being discharged from the hospital today during which time you have been under the care of Dr. Love. You had a left hip fracture. You were treated for this injury with left hip hemiarthroplasty. You may resume you normal diet (including any special diets as directed by your primary doctor) as well as your home medications. You should follow up with you primary doctor if you have any questions regarding medication you took prior to your stay in the hospital. You may take your pain medication as prescribed. After the first few days, take your pain medication as needed. Do not drive or drink alcohol while taking your pain medication. Your injury may increase your risk of developing a blood clot,or DVT, in your arm or leg. This could potentially dislodge and travel to your lungs and become a life threatening condition called apulmonary embolus,or PE. You have been prescribed aspirin to be taken to prevent this. Frequent movement of the legs will also help prevent this from occurring. If you develop any new or worsening cough, chestpain, bloody sputum or shortness of breath, call 911 or go to the EmergencyRoom. Always keep your surgical incision/dressing clean and dry. If you experience increasing pain at your incision site, redness, swelling, increasing discharge, foul odors, or fevers (greater than 100.4), night sweats or chills you should call the office at the above number. If you feel this is an emergency you should be evaluated in the Emergency Department of a nearby hospital. Orthopedic Patient Instructions Summary: Weight Bearing: As tolerated Activity: As tolerated. Diet: Regular. Wound Care: Keep dressing clean and dry Anticoagulation: Aspirin Pain Medication: Take only as needed. Ice, rest and elevation will be of great benefit. Please plan to follow-up wldelano Love in 2 weeks. You will need to call the clinic [phone] to schedule this visit. Thank you far allowing me to participate in your care. Do not hesitate to call the office with any questions or concerns. Discharge Attestations Time Spent in Discharge Care*: greater than 30 min Quality Metrics Clinical Quality Measures [ No reported AMI, CVA or VTE this stay] Coding Level of Care Code Acute Code for Chg Fwd Diagnoses Closed fracture of left hip, initial encounter S72.002A Encounter type: initial encounter Hyperglycemia R73.9 Orthostatic hypotension I95.1 Diabetes, type I E10.9 HLD (hyperlipidemia) E78.5 Episodic lightheadedness R42 Dizziness on standing R42 Hypotension I95.9 Orthostatic lightheadedness R42
[2024-06-12 13:24] VITALS: BP 134/72; PULSE 79; O2SAT 95
== END 2024-06-12 13:07 | disposition skilled nursing facility (03) | DRG 522 ==
LOC: ER 08:40 → OR 09:54 → ICU 13:31 → MEDSURG 22:06
PROVIDERS: Internal Medicine; Orthopaedic Surgery; Student in an Organized Health Care Education/Training Program; Admitting Provider Internal Medicine; Emergency Provider Family Medicine; PCP Nurse Practitioner; Visit Provider Internal Medicine
PROC: 0SRS01Z Replacement of Left Hip Joint, Femoral Surface with Metal Synthetic Substitute, Open Approach (ICD-10-PCS; CPT 27125; principal; 2024-06-03 11:30)
DX: S72.002A Fracture of unspecified part of neck of left femur, initial encounter for closed fracture (principal); E87.1 Hypo-osmolality and hyponatremia; N17.9 Acute kidney failure, unspecified; W01.0XXA Fall on same level from slipping, tripping and stumbling without subsequent striking against object, initial encounter; I95.1 Orthostatic hypotension; E10.65 Type 1 diabetes mellitus with hyperglycemia; Z96.41 Presence of insulin pump (external) (internal); E78.5 Hyperlipidemia, unspecified; Z98.1 Arthrodesis status; Z79.82 Long term (current) use of aspirin; Z88.5 Allergy status to narcotic agent; Z88.8 Allergy status to other drugs, medicaments and biological substances; I25.119 Atherosclerotic heart disease of native coronary artery with unspecified angina pectoris; Z87.891 Personal history of nicotine dependence; Z96.619 Presence of unspecified artificial shoulder joint; E86.0 Dehydration; H91.90 Unspecified hearing loss, unspecified ear; Z97.4 Presence of external hearing-aid
CPT/HCPCS: 36415; 36416; 51702; 70450; 71045; 72125; 73080; 73502; 80048; 80053; 81003; 82009; 82306; 82533; 82803; 82962; 83605; 83735; 84439; 84443; 85014; 85018; 85025; 86850; 86900; 93005; 93306; 96372; 96374; 96375; 97110; 97162; 97166; 97530; 97535; 99285; C1776; J0330; J0690; J0834; J1100; J1815; J2270; J2405; J2704; J3010; J3475; J3490; J7030; J7040; J9999; P9045